=== PATIENT | female | born 1945 | race Caucasian/White ===

== ENCOUNTER 2020-06-16 19:37 | Inpatient (IN) | payer OTHER ==
[2020-06-16 20:37] LABS: EOS % 1.1 % (0-4.5); HEMOGLOBIN 10.8 GM/dl (10.7-15.3)
[2020-06-16 20:46] LABS: BASO % 0.5 % (0-2.0); HEMATOCRIT 31.5 % (32.4-45.2); LYMPH % 9.5 % (8-40); MCH 32.3 pg (25.7-33.7); MCHC 34.1 g/dl (32.0-36.0); MEAN CELL VOLUME 94.6 fl (80-96); MEAN PLT VOLUME 10.4 fl (7.5-11.1); MONO % 6.9 % (3.8-10.2); PLATELET COUNT 212 K/MM3 (134-434); RBC 3.33 M/mm3 (3.60-5.2); WHITE BLOOD COUNT 8.4 K/mm3 (4.0-10.8)
[2020-06-16 20:47] LABS: ALBUMIN 3.5 g/dl (3.4-5.0); BILIRUBIN,TOTAL 0.6 mg/dl (0.2-1); CALCIUM 9.7 mg/dl (8.5-10); CREATININE 0.6 mg/dl (0.55-1.3); POTASSIUM 4.2 mmol/L (3.5-5.1); TOT PROT 6.6 g/dl (6.4-8.2)
[2020-06-16] MEDS ORDERED: ALBUTEROL SO4 2.5/IPRATROPIUM 0.5 INH SOL 3 ML VIAL.NEB. NEB ONE ×2 (21:07→21:10)
[2020-06-16] MEDS ORDERED: DEXAMETHASONE SOD PHOSPHATE 10 MG/1 ML VIAL IVPUSH ONE (21:07)
[2020-06-16] MEDS ORDERED: DEXAMETHASONE SOD PHOSPHATE 10 MG/1 ML VIAL ONE (21:10)
[2020-06-16] MEDS ORDERED: ACETAMINOPHEN INJECTION 100 ML IVPB ONE (21:17)
[2020-06-16] MEDS ORDERED: ACETAMINOPHEN 1000 MG/100 ML VIAL (NON FORMULARY) IVPB ONE (21:17)
[2020-06-16 21:59] LABS: LIPASE 178 U/L (73-393)
[2020-06-16 22:03] LABS: VENOUS BASE EXCESS 1.6 mmol/L (-2-2); VENOUS O2 SATURATION 97.5 % (70-80); VENOUS PCO2 49.1 mmHg (38-52); VENOUS PH 7.368 (7.310-7.410)
[2020-06-16 22:07] LABS: N-TERMINAL BNP 230.8 pg/ml (5-125)
[2020-06-16] MEDS ORDERED: VANCOMYCIN 1 GM in D5W (PRE-DOCKED) 1,000 MG/250 ML IVPB ONE (22:13)
[2020-06-16] MEDS ORDERED: VANCOMYCIN 1,000 MG VIAL (RESTRICTED TO ID ONLY) ONE (22:16)
[2020-06-16] MEDS ORDERED: ALBUTEROL SO4 2.5/IPRATROPIUM 0.5 INH SOL 3 ML VIAL.NEB. NEB PRN (23:08)
[2020-06-17 08:18] LABS: ALBUMIN 3.2 g/dl (3.4-5.0); BILIRUBIN,TOTAL 0.6 mg/dl (0.2-1); CALCIUM 9.9 mg/dl (8.5-10); CREATININE 0.6 mg/dl (0.55-1.3); POTASSIUM 4.4 mmol/L (3.5-5.1); TOT PROT 6.1 g/dl (6.4-8.2)
[2020-06-17] MEDS ORDERED: methylPREDNISolone NA SUCC 40 MG/1 ML VIAL IVPUSH SCH (10:00)
[2020-06-17] MEDS: LOSARTAN POTASSIUM 50 MG TABLET PO SCH (10:18)
[2020-06-17] MEDS: VANCOMYCIN 1 GRAM (PRE-DOCKED) 1 GM/250 ML BAG IVPB SCH ×2 (10:19→21:44)
[2020-06-17] MEDS: ASPIRIN COATED 81 MG TABLET.EC PO SCH (10:19)
[2020-06-17] MEDS: FAMOTIDINE 20 MG TABLET PO SCH (10:19)
[2020-06-17 10:21] LABS: EPITHELIAL CELLS FEW /hpf
[2020-06-17] MEDS ORDERED: BUDESONIDE/FORMETEROL FUMARATE 160/4.5 mcg INHALER IH ONE (10:52)
[2020-06-17] MEDS: ALBUTEROL SO4 2.5/IPRATROPIUM 0.5 INH SOL 3 ML VIAL.NEB. NEB SCH ×3 (11:09→20:47)
[2020-06-17] MEDS: BUDESONIDE/FORMETEROL FUMARATE 160/4.5 mcg INHALER IH SCH (12:05)
[2020-06-17] MEDS ORDERED: PT OWN MED DRAWER 7, Y5N ONE (12:34)
[2020-06-17] MEDS: FUROSEMIDE 20 MG TABLET (FP) PO SCH (16:05)
[2020-06-17] MEDS: methylPREDNISolone NA SUCC 40 MG/1 ML VIAL IVPUSH SCH (18:21)
[2020-06-17] MEDS: ESCITALOPRAM OXALATE 10 MG TABLET PO SCH (20:47)
[2020-06-17] MEDS: ATORVASTATIN CA 10 MG TABLET (FP) PO SCH (21:44)
[2020-06-17] MEDS: NYSTATIN 100,000 UNIT/GM TOPICAL CREAM 15 GM TUBE TP SCH (21:44)
[2020-06-18] MEDS: methylPREDNISolone NA SUCC 40 MG/1 ML VIAL IVPUSH SCH ×2 (06:14→10:23)
[2020-06-18] MEDS: LEVOTHYROXINE NA 88 MCG TABLET (FP) PO SCH (06:14)
[2020-06-18] MEDS: ALBUTEROL SO4 2.5/IPRATROPIUM 0.5 INH SOL 3 ML VIAL.NEB. NEB SCH ×3 (08:00→20:31)
[2020-06-18 08:19] LABS: CALCIUM 10.1 mg/dl (8.5-10); CREATININE 0.7 mg/dl (0.55-1.3); POTASSIUM 4.2 mmol/L (3.5-5.1)
[2020-06-18] MEDS: VANCOMYCIN 1 GRAM (PRE-DOCKED) 1 GM/250 ML BAG IVPB SCH ×2 (09:00→21:31)
[2020-06-18] MEDS ORDERED: CEFTRIAXONE 2 GM-D5W BAG 2 GM/50 ML BAG IVPB ONE (09:28)
[2020-06-18] MEDS: ASPIRIN COATED 81 MG TABLET.EC PO SCH (09:57)
[2020-06-18] MEDS: FUROSEMIDE 20 MG TABLET (FP) PO SCH (09:57)
[2020-06-18] MEDS: LOSARTAN POTASSIUM 50 MG TABLET PO SCH (09:57)
[2020-06-18] MEDS: FAMOTIDINE 20 MG TABLET PO SCH (09:57)
[2020-06-18] MEDS: CEFTRIAXONE 1 GM in DEXTROSE 5%-WATER - 50 ML IVPB SCH (09:57)
[2020-06-18] MEDS: BUDESONIDE/FORMETEROL FUMARATE 160/4.5 mcg INHALER IH SCH (09:58)
[2020-06-18] MEDS: ENOXAPARIN NA (PORCINE) 40 MG/0.4 ML DISP.SYRIN SQ SCH ×2 (10:01→21:31)
[2020-06-18] MEDS: NYSTATIN 100,000 UNIT/GM TOPICAL CREAM 15 GM TUBE TP SCH ×2 (10:02→21:29)
[2020-06-18] MEDS ORDERED: SODIUM CHLORIDE NASAL SPRAY 44 ML BOTTLE NS PRN (12:22)
[2020-06-18] MEDS ORDERED: cefTRIAXone SODIUM 1 GM VIAL ONE (13:19)
[2020-06-18] MEDS ORDERED: DEXTROSE 5%-WATER - 50 ML IVPB ONE (13:19)
[2020-06-18] MEDS ORDERED: POLYETHYLENE GLYCOL 3350 119 GM BTL PO ONE (13:29)
[2020-06-18 19:46] LABS: MAGNESIUM 2.1 mg/dL (1.8-2.4)
[2020-06-18] MEDS: ESCITALOPRAM OXALATE 10 MG TABLET PO SCH (20:31)
[2020-06-18] MEDS: ATORVASTATIN CA 10 MG TABLET (FP) PO SCH (21:29)
[2020-06-19] MEDS ORDERED: IBUPROFEN 200 MG TABLET PO ONE (00:05)
[2020-06-19] MEDS: methylPREDNISolone NA SUCC 40 MG/1 ML VIAL IVPUSH SCH ×3 (02:00→09:02)
[2020-06-19] MEDS: LEVOTHYROXINE NA 88 MCG TABLET (FP) PO SCH ×2 (06:38→07:33)
[2020-06-19] MEDS ORDERED: DEXTROSE 5%-WATER - 50 ML IVPB ONE (08:14)
[2020-06-19] MEDS ORDERED: cefTRIAXone SODIUM 1 GM VIAL ONE (08:14)
[2020-06-19] MEDS ORDERED: PT OWN MED DRAWER 7, Y5N ONE (08:16)
[2020-06-19] MEDS: ALBUTEROL SO4 2.5/IPRATROPIUM 0.5 INH SOL 3 ML VIAL.NEB. NEB SCH ×3 (08:25→20:40)
[2020-06-19] MEDS: BUDESONIDE/FORMETEROL FUMARATE 160/4.5 mcg INHALER IH SCH (09:00)
[2020-06-19] MEDS: FUROSEMIDE 20 MG TABLET (FP) PO SCH (09:02)
[2020-06-19] MEDS: ASPIRIN COATED 81 MG TABLET.EC PO SCH (09:02)
[2020-06-19] MEDS: ENOXAPARIN NA (PORCINE) 40 MG/0.4 ML DISP.SYRIN SQ SCH ×2 (09:02→21:14)
[2020-06-19] MEDS: FAMOTIDINE 20 MG TABLET PO SCH (09:02)
[2020-06-19] MEDS: POLYETHYLENE GLYCOL 3350 119 GM BTL PO SCH (09:02)
[2020-06-19] MEDS: LOSARTAN POTASSIUM 50 MG TABLET PO SCH (09:02)
[2020-06-19] MEDS: CEFTRIAXONE 1 GM in DEXTROSE 5%-WATER - 50 ML IVPB SCH (09:03)
[2020-06-19] MEDS: NYSTATIN 100,000 UNIT/GM TOPICAL CREAM 15 GM TUBE TP SCH ×2 (09:03→21:15)
[2020-06-19] MEDS: VANCOMYCIN 1 GRAM (PRE-DOCKED) 1 GM/250 ML BAG IVPB SCH (09:04)
[2020-06-19 09:21] LABS: BASO % 0.9 % (0-2.0); EOS % 0.1 % (0-4.5); HEMATOCRIT 28.9 % (32.4-45.2); HEMOGLOBIN 9.6 GM/dl (10.7-15.3); LYMPH % 12.2 % (8-40); MCH 31.8 pg (25.7-33.7); MEAN CELL VOLUME 96.2 fl (80-96); MEAN PLT VOLUME 10.5 fl (7.5-11.1); MONO % 6.1 % (3.8-10.2); NEUT % 80.7 % (42.8-82.8); PLATELET COUNT 210 K/MM3 (134-434); RBC 3.01 M/mm3 (3.60-5.2); RDW 13.8 % (11.6-15.6); WHITE BLOOD COUNT 8.2 K/mm3 (4.0-10.8)
[2020-06-19 09:40] LABS: ALBUMIN 3.4 g/dl (3.4-5.0); BILIRUBIN,TOTAL 0.6 mg/dl (0.2-1); CREATININE 0.7 mg/dl (0.55-1.3); MAGNESIUM 1.9 mg/dL (1.8-2.4)
[2020-06-19] MEDS ORDERED: methylPREDNISolone NA SUCC 40 MG/1 ML VIAL IVPUSH SCH (11:00)
[2020-06-19] MEDS: ESCITALOPRAM OXALATE 10 MG TABLET PO SCH (21:14)
[2020-06-19] MEDS: ATORVASTATIN CA 10 MG TABLET (FP) PO SCH (21:14)
[2020-06-20] MEDS: LEVOTHYROXINE NA 88 MCG TABLET (FP) PO SCH (06:08)
[2020-06-20 08:35] LABS: BASO % 0.4 % (0-2.0); EOS % 1.5 % (0-4.5); HEMATOCRIT 30.1 % (32.4-45.2); HEMOGLOBIN 10.1 GM/dl (10.7-15.3); LYMPH % 20.3 % (8-40); MCH 31.5 pg (25.7-33.7); MCHC 33.4 g/dl (32.0-36.0); MEAN CELL VOLUME 94.1 fl (80-96); MEAN PLT VOLUME 10.2 fl (7.5-11.1); MONO % 10.4 % (3.8-10.2); NEUT % 67.4 % (42.8-82.8); PLATELET COUNT 234 K/MM3 (134-434); RDW 13.6 % (11.6-15.6); WHITE BLOOD COUNT 9.4 K/mm3 (4.0-10.8)
[2020-06-20 08:43] LABS: ALBUMIN 3.3 g/dl (3.4-5.0); BILIRUBIN,TOTAL 0.4 mg/dl (0.2-1); CALCIUM 10.1 mg/dl (8.5-10); CREATININE 0.6 mg/dl (0.55-1.3); MAGNESIUM 1.9 mg/dL (1.8-2.4); POTASSIUM 4.2 mmol/L (3.5-5.1); TOT PROT 6.3 g/dl (6.4-8.2)
[2020-06-20] MEDS ORDERED: DEXTROSE 5%-WATER - 50 ML IVPB ONE (09:21)
[2020-06-20] MEDS ORDERED: cefTRIAXone SODIUM 1 GM VIAL ONE (09:21)
[2020-06-20] MEDS: LOSARTAN POTASSIUM 50 MG TABLET PO SCH (09:52)
[2020-06-20] MEDS: ASPIRIN COATED 81 MG TABLET.EC PO SCH (09:52)
[2020-06-20] MEDS: FAMOTIDINE 20 MG TABLET PO SCH (09:53)
[2020-06-20] MEDS: ENOXAPARIN NA (PORCINE) 40 MG/0.4 ML DISP.SYRIN SQ SCH ×2 (09:53→21:23)
[2020-06-20] MEDS: POLYETHYLENE GLYCOL 3350 119 GM BTL PO SCH (09:54)
[2020-06-20] MEDS: NYSTATIN 100,000 UNIT/GM TOPICAL CREAM 15 GM TUBE TP SCH (09:54)
[2020-06-20] MEDS: ALBUTEROL SO4 2.5/IPRATROPIUM 0.5 INH SOL 3 ML VIAL.NEB. NEB SCH ×3 (09:55→19:36)
[2020-06-20] MEDS: CEFTRIAXONE 1 GM in DEXTROSE 5%-WATER - 50 ML IVPB SCH (09:55)
[2020-06-20] MEDS ORDERED: methylPREDNISolone NA SUCC 40 MG/1 ML VIAL IVPUSH SCH (10:00)
[2020-06-20] MEDS: BUDESONIDE/FORMETEROL FUMARATE 160/4.5 mcg INHALER IH SCH (10:04)
[2020-06-20] MEDS: ESCITALOPRAM OXALATE 10 MG TABLET PO SCH (19:34)
[2020-06-21] MEDS: LEVOTHYROXINE NA 88 MCG TABLET (FP) PO SCH (06:09)
[2020-06-21 08:04] LABS: BASO % 0.4 % (0-2.0); EOS % 2.3 % (0-4.5); HEMATOCRIT 28.7 % (32.4-45.2); HEMOGLOBIN 9.6 GM/dl (10.7-15.3); MCH 31.9 pg (25.7-33.7); MCHC 33.5 g/dl (32.0-36.0); MEAN PLT VOLUME 10.5 fl (7.5-11.1); MONO % 13.1 % (3.8-10.2); NEUT % 64.2 % (42.8-82.8); PLATELET COUNT 199 K/MM3 (134-434); RBC 3.02 M/mm3 (3.60-5.2); RDW 13.6 % (11.6-15.6); WHITE BLOOD COUNT 8.7 K/mm3 (4.0-10.8)
[2020-06-21 08:19] LABS: ALBUMIN 3.1 g/dl (3.4-5.0); BILIRUBIN,TOTAL 0.7 mg/dl (0.2-1); CALCIUM 9.6 mg/dl (8.5-10); CREATININE 0.5 mg/dl (0.55-1.3); MAGNESIUM 1.9 mg/dL (1.8-2.4); POTASSIUM 3.9 mmol/L (3.5-5.1); TOT PROT 5.7 g/dl (6.4-8.2)
[2020-06-21] MEDS: ALBUTEROL SO4 2.5/IPRATROPIUM 0.5 INH SOL 3 ML VIAL.NEB. NEB SCH ×2 (08:35→20:24)
[2020-06-21] MEDS ORDERED: DEXTROSE 5%-WATER - 50 ML IVPB ONE (09:37)
[2020-06-21] MEDS ORDERED: cefTRIAXone SODIUM 1 GM VIAL ONE (09:37)
[2020-06-21] MEDS ORDERED: FUROSEMIDE 20 MG TABLET (FP) PO SCH (10:00)
[2020-06-21] MEDS ORDERED: predniSONE 20 MG TABLET (UD) PO SCH (10:00)
[2020-06-21] MEDS: ASPIRIN COATED 81 MG TABLET.EC PO SCH (10:29)
[2020-06-21] MEDS: predniSONE 20 MG TABLET (UD) PO SCH (10:29)
[2020-06-21] MEDS: LOSARTAN POTASSIUM 50 MG TABLET PO SCH (10:29)
[2020-06-21] MEDS: POLYETHYLENE GLYCOL 3350 119 GM BTL PO SCH (10:34)
[2020-06-21] MEDS: FAMOTIDINE 20 MG TABLET PO SCH (10:34)
[2020-06-21] MEDS: FUROSEMIDE 20 MG TABLET (FP) PO SCH (10:34)
[2020-06-21] MEDS: ENOXAPARIN NA (PORCINE) 40 MG/0.4 ML DISP.SYRIN SQ SCH ×2 (10:34→21:25)
[2020-06-21] MEDS: BUDESONIDE/FORMETEROL FUMARATE 160/4.5 mcg INHALER IH SCH (10:35)
[2020-06-21] MEDS: CEFTRIAXONE 1 GM in DEXTROSE 5%-WATER - 50 ML IVPB SCH (10:35)
[2020-06-21 11:03] LABS: IRON SERUM 43 ug/dL (50-175)
[2020-06-21 11:05] LABS: TOTAL IRON BINDING CAPACITY 266 ug/dL (250-450)
[2020-06-21] MEDS ORDERED: LORazepam 1 MG TABLET PO ONE (12:00)
[2020-06-21] MEDS: ESCITALOPRAM OXALATE 10 MG TABLET PO SCH (20:24)
[2020-06-22] MEDS: LEVOTHYROXINE NA 88 MCG TABLET (FP) PO SCH (06:00)
[2020-06-22] MEDS: ALBUTEROL SO4 2.5/IPRATROPIUM 0.5 INH SOL 3 ML VIAL.NEB. NEB SCH ×3 (06:09→09:59)
[2020-06-22] MEDS ORDERED: DEXTROSE 5%-WATER - 50 ML IVPB ONE (07:49)
[2020-06-22] MEDS ORDERED: cefTRIAXone SODIUM 1 GM VIAL ONE (07:49)
[2020-06-22 07:52] LABS: BASO % 0.4 % (0-2.0)
[2020-06-22 07:55] LABS: EOS % 2.8 % (0-4.5); HEMATOCRIT 29.8 % (32.4-45.2); HEMOGLOBIN 9.8 GM/dl (10.7-15.3); MCH 31.5 pg (25.7-33.7); MEAN CELL VOLUME 95.3 fl (80-96); MEAN PLT VOLUME 10.6 fl (7.5-11.1); NEUT % 66.8 % (42.8-82.8); PLATELET COUNT 213 K/MM3 (134-434); RBC 3.13 M/mm3 (3.60-5.2); RDW 13.4 % (11.6-15.6); WHITE BLOOD COUNT 8.3 K/mm3 (4.0-10.8)
[2020-06-22 08:06] LABS: ALBUMIN 3.2 g/dl (3.4-5.0); BILIRUBIN,TOTAL 0.5 mg/dl (0.2-1); CALCIUM 9.6 mg/dl (8.5-10); CREATININE 0.5 mg/dl (0.55-1.3); TOT PROT 5.9 g/dl (6.4-8.2)
[2020-06-22] MEDS: POLYETHYLENE GLYCOL 3350 119 GM BTL PO SCH (09:59)
[2020-06-22] MEDS: CEFTRIAXONE 1 GM in DEXTROSE 5%-WATER - 50 ML IVPB SCH (10:00)
[2020-06-22] MEDS: FAMOTIDINE 20 MG TABLET PO SCH (10:00)
[2020-06-22] MEDS: predniSONE 20 MG TABLET (UD) PO SCH (10:00)
[2020-06-22] MEDS: FUROSEMIDE 20 MG TABLET (FP) PO SCH (10:00)
[2020-06-22] MEDS: ENOXAPARIN NA (PORCINE) 40 MG/0.4 ML DISP.SYRIN SQ SCH ×2 (10:00→21:14)
[2020-06-22] MEDS: ASPIRIN COATED 81 MG TABLET.EC PO SCH (10:00)
[2020-06-22] MEDS: LOSARTAN POTASSIUM 50 MG TABLET PO SCH (10:01)
[2020-06-22] MEDS: FERROUS SO4 325 MG TABLET (FP) PO SCH ×2 (10:02→21:14)
[2020-06-22] MEDS: BUDESONIDE/FORMETEROL FUMARATE 160/4.5 mcg INHALER IH SCH (10:02)
[2020-06-22] MEDS: DOCUSATE SODIUM 100 MG CAPSULE (FP) PO SCH ×2 (14:52→21:14)
[2020-06-22] MEDS: ESCITALOPRAM OXALATE 10 MG TABLET PO SCH (20:10)
[2020-06-22] MEDS: ALBUTEROL SO4 0.083% IH SOL 2.5 MG/3 ML VIAL.NEB. NEB PRN (21:14)
[2020-06-23] MEDS: DOCUSATE SODIUM 100 MG CAPSULE (FP) PO SCH ×3 (06:28→21:57)
[2020-06-23] MEDS: LEVOTHYROXINE NA 88 MCG TABLET (FP) PO SCH (06:29)
[2020-06-23] MEDS: ALBUTEROL SO4 2.5/IPRATROPIUM 0.5 INH SOL 3 ML VIAL.NEB. NEB SCH ×4 (06:29→20:43)
[2020-06-23] MEDS: ENOXAPARIN NA (PORCINE) 40 MG/0.4 ML DISP.SYRIN SQ SCH ×2 (10:53→21:57)
[2020-06-23] MEDS: FERROUS SO4 325 MG TABLET (FP) PO SCH ×2 (10:53→21:57)
[2020-06-23] MEDS: LOSARTAN POTASSIUM 50 MG TABLET PO SCH (10:54)
[2020-06-23] MEDS: FUROSEMIDE 20 MG TABLET (FP) PO SCH (10:54)
[2020-06-23] MEDS: predniSONE 20 MG TABLET (UD) PO SCH (10:54)
[2020-06-23] MEDS: FAMOTIDINE 20 MG TABLET PO SCH (10:54)
[2020-06-23] MEDS: ASPIRIN COATED 81 MG TABLET.EC PO SCH (10:54)
[2020-06-23] MEDS: BUDESONIDE/FORMETEROL FUMARATE 160/4.5 mcg INHALER IH SCH (10:59)
[2020-06-23] MEDS: POLYETHYLENE GLYCOL 3350 119 GM BTL PO SCH (10:59)
[2020-06-23] MEDS ORDERED: predniSONE 20 MG TABLET (UD) PO SCH (15:22)
[2020-06-23] MEDS: ESCITALOPRAM OXALATE 10 MG TABLET PO SCH (20:43)
[2020-06-24] MEDS: ALBUTEROL SO4 0.083% IH SOL 2.5 MG/3 ML VIAL.NEB. NEB PRN (02:36)
[2020-06-24] MEDS: LEVOTHYROXINE NA 88 MCG TABLET (FP) PO SCH (06:23)
[2020-06-24] MEDS: DOCUSATE SODIUM 100 MG CAPSULE (FP) PO SCH ×3 (06:23→21:16)
[2020-06-24] MEDS: FAMOTIDINE 20 MG TABLET PO SCH (09:56)
[2020-06-24] MEDS: ASPIRIN COATED 81 MG TABLET.EC PO SCH (09:56)
[2020-06-24] MEDS: FUROSEMIDE 20 MG TABLET (FP) PO SCH (09:56)
[2020-06-24] MEDS: ENOXAPARIN NA (PORCINE) 40 MG/0.4 ML DISP.SYRIN SQ SCH ×2 (09:56→21:17)
[2020-06-24] MEDS: BUDESONIDE/FORMETEROL FUMARATE 160/4.5 mcg INHALER IH SCH ×2 (09:56→23:10)
[2020-06-24] MEDS: FERROUS SO4 325 MG TABLET (FP) PO SCH ×2 (09:56→21:16)
[2020-06-24] MEDS: LOSARTAN POTASSIUM 50 MG TABLET PO SCH (09:57)
[2020-06-24] MEDS: POLYETHYLENE GLYCOL 3350 119 GM BTL PO SCH (09:59)
[2020-06-24] MEDS ORDERED: DEXAMETHASONE SOD PHOSPHATE 10 MG/1 ML VIAL IVPUSH SCH (10:57)
[2020-06-24 11:01] LABS: BASO % 0.3 % (0-2.0); EOS % 2.7 % (0-4.5); HEMATOCRIT 27.9 % (32.4-45.2); HEMOGLOBIN 9.5 GM/dl (10.7-15.3); MCH 32.4 pg (25.7-33.7); MCHC 34.2 g/dl (32.0-36.0); MEAN CELL VOLUME 94.8 fl (80-96); MEAN PLT VOLUME 11.1 fl (7.5-11.1); MONO % 8.3 % (3.8-10.2); NEUT % 73.7 % (42.8-82.8); PLATELET COUNT 185 K/MM3 (134-434); RBC 2.94 M/mm3 (3.60-5.2); RDW 13.5 % (11.6-15.6); WHITE BLOOD COUNT 8.2 K/mm3 (4.0-10.8)
[2020-06-24] MEDS ORDERED: DEXAMETHASONE SOD PHOSPHATE 10 MG/1 ML VIAL IVPUSH ONE (11:27)
[2020-06-24] MEDS ORDERED: MEROPENEM 1 GM VIAL (RESTRICTED TO ID) IVPB ONE ×3 (11:36→23:01)
[2020-06-24] MEDS ORDERED: DEXTROSE 5%-WATER 100 ML IVPB ONE ×3 (11:36→23:01)
[2020-06-24] MEDS: MEROPENEM 1 GM in DEXTROSE 5%-WATER 100 ML IVPB SCH ×2 (11:39→18:30)
[2020-06-24 12:23] LABS: ALBUMIN 2.6 g/dl (3.4-5.0); BLOOD UREA NITROGEN 22.6 mg/dL (7-18)
[2020-06-24 12:27] LABS: BILIRUBIN,TOTAL 0.4 mg/dL (0.2-1)
[2020-06-24 12:28] LABS: CREATININE 0.5 mg/dL (0.55-1.3); TOT PROT 5.5 g/dl (6.4-8.2)
[2020-06-24 12:38] LABS: CALCIUM 9.5 mg/dL (8.5-10.1)
[2020-06-24] MEDS ORDERED: PT OWN MED DRAWER 7, Y5N ONE ×4 (13:56→23:00)
[2020-06-24] MEDS: AZITHROMYCIN IVPB 500 MG/250 ML BAG IVPB SCH (14:13)
[2020-06-24] MEDS ORDERED: REMDESIVIR 200 MG in SODIUM CHLORIDE 210 ML IVPB ONE (15:00)
[2020-06-24] MEDS: ALBUTEROL SO4 2.5/IPRATROPIUM 0.5 INH SOL 3 ML VIAL.NEB. NEB SCH (20:24)
[2020-06-24] MEDS: SODIUM CHLORIDE NASAL SPRAY 44 ML BOTTLE NS PRN (21:16)
[2020-06-24] MEDS: ESCITALOPRAM OXALATE 10 MG TABLET PO SCH (21:16)
[2020-06-24] MEDS ORDERED: MELATONIN 5 MG TABLETS PO PRN (22:57)
[2020-06-24] MEDS: ALBUTEROL SO4 HFA INHALER IH PRN (23:45)
[2020-06-25] MEDS: MEROPENEM 1 GM in DEXTROSE 5%-WATER 100 ML IVPB SCH ×3 (01:24→18:48)
[2020-06-25] MEDS: ALBUTEROL SO4 HFA INHALER IH PRN (03:46)
[2020-06-25 03:53] LABS: EPI CELLS 10 /uL (0-25.1); HYALINE CASTS 0 /uL (0-3.1); PH,URINE 6.5 (5.0-8.0); URINE APPEARANCE CLEAR; URINE BACTERIA 377 /uL (0-1359); URINE BILIRUBIN NEGATIVE (NEGATIVE); URINE COLOR YELLOW; URINE GLUCOSE (UA) NEGATIVE (NEGATIVE); URINE KETONE NEGATIVE (NEGATIVE); URINE LEUK ESTERASE NEGATIVE (NEGATIVE); URINE NITRITE NEGATIVE (NEGATIVE); URINE PROTEIN NEGATIVE (NEGATIVE); URINE RBC 17 /uL (0-23.9); URINE UROBILINOGEN 0.2 mg/dL (0.2-1.0); URINE WBC 4 /uL (0-25.8)
[2020-06-25] MEDS: LEVOTHYROXINE NA 88 MCG TABLET (FP) PO SCH (06:11)
[2020-06-25] MEDS: DOCUSATE SODIUM 100 MG CAPSULE (FP) PO SCH ×3 (06:11→22:11)
[2020-06-25] MEDS: SODIUM CHLORIDE NASAL SPRAY 44 ML BOTTLE NS PRN (06:12)
[2020-06-25 07:16] LABS: POTASSIUM 3.9 mmol/L (3.5-5.1)
[2020-06-25 07:21] LABS: CALCIUM 9.8 mg/dL (8.5-10.1)
[2020-06-25 07:22] LABS: ALBUMIN 2.8 g/dl (3.4-5.0); BLOOD UREA NITROGEN 23.7 mg/dL (7-18); MAGNESIUM 2.2 mg/dL (1.8-2.4)
[2020-06-25 07:25] LABS: CREATININE 0.6 mg/dL (0.55-1.3)
[2020-06-25 07:26] LABS: BILIRUBIN,TOTAL 0.4 mg/dL (0.2-1)
[2020-06-25 07:27] LABS: TOT PROT 5.6 g/dl (6.4-8.2)
[2020-06-25] MEDS ORDERED: MEROPENEM 1 GM VIAL (RESTRICTED TO ID) IVPB ONE ×2 (09:21→18:09)
[2020-06-25] MEDS ORDERED: DEXTROSE 5%-WATER 100 ML IVPB ONE ×2 (09:22→18:10)
[2020-06-25] MEDS ORDERED: PT OWN MED DRAWER 7, Y5N ONE (09:23)
[2020-06-25] MEDS ORDERED: DEXAMETHASONE SOD PHOSPHATE 10 MG/1 ML VIAL IVPUSH SCH (10:00)
[2020-06-25] MEDS ORDERED: BUDESONIDE/FORMETEROL FUMARATE 160/4.5 mcg INHALER IH SCH (10:00)
[2020-06-25] MEDS: DEXAMETHASONE SOD PHOSPHATE 10 MG/1 ML VIAL IVPUSH SCH (10:15)
[2020-06-25] MEDS: ASPIRIN COATED 81 MG TABLET.EC PO SCH (10:15)
[2020-06-25] MEDS: FUROSEMIDE 20 MG TABLET (FP) PO SCH (10:15)
[2020-06-25] MEDS: ENOXAPARIN NA (PORCINE) 40 MG/0.4 ML DISP.SYRIN SQ SCH ×2 (10:15→22:11)
[2020-06-25] MEDS: BUDESONIDE/FORMETEROL FUMARATE 160/4.5 mcg INHALER IH SCH ×2 (10:15→22:11)
[2020-06-25] MEDS: FAMOTIDINE 20 MG TABLET PO SCH (10:15)
[2020-06-25] MEDS: POLYETHYLENE GLYCOL 3350 119 GM BTL PO SCH (10:15)
[2020-06-25] MEDS: FERROUS SO4 325 MG TABLET (FP) PO SCH ×2 (10:15→22:11)
[2020-06-25] MEDS: AZITHROMYCIN IVPB 500 MG/250 ML BAG IVPB SCH (10:16)
[2020-06-25] MEDS: REMDESIVIR 100 MG in SODIUM CHLORIDE 230 ML IVPB SCH (15:42)
[2020-06-25] MEDS: ESCITALOPRAM OXALATE 10 MG TABLET PO SCH (21:00)
[2020-06-26] MEDS ORDERED: DEXTROSE 5%-WATER 100 ML IVPB ONE ×3 (01:04→16:33)
[2020-06-26] MEDS ORDERED: MEROPENEM 1 GM VIAL (RESTRICTED TO ID) IVPB ONE ×3 (01:04→16:33)
[2020-06-26] MEDS: MEROPENEM 1 GM in DEXTROSE 5%-WATER 100 ML IVPB SCH ×3 (01:05→17:15)
[2020-06-26] MEDS: ALBUTEROL SO4 HFA INHALER IH PRN ×3 (01:05→21:55)
[2020-06-26] MEDS: DOCUSATE SODIUM 100 MG CAPSULE (FP) PO SCH ×3 (06:50→21:41)
[2020-06-26] MEDS: LEVOTHYROXINE NA 88 MCG TABLET (FP) PO SCH (06:50)
[2020-06-26 07:30] LABS: POTASSIUM 3.8 mmol/L (3.5-5.1)
[2020-06-26 07:37] LABS: ALBUMIN 2.6 g/dl (3.4-5.0); CALCIUM 9.5 mg/dL (8.5-10.1)
[2020-06-26 07:38] LABS: BLOOD UREA NITROGEN 21.6 mg/dL (7-18)
[2020-06-26 07:39] LABS: BILIRUBIN,TOTAL 0.4 mg/dL (0.2-1); TOT PROT 5.4 g/dl (6.4-8.2)
[2020-06-26 07:41] LABS: CREATININE 0.5 mg/dL (0.55-1.3)
[2020-06-26 08:22] VITALS: BMI 40.4
[2020-06-26] MEDS: BUDESONIDE/FORMETEROL FUMARATE 160/4.5 mcg INHALER IH SCH ×2 (09:45→21:55)
[2020-06-26] MEDS: FERROUS SO4 325 MG TABLET (FP) PO SCH ×2 (09:54→21:41)
[2020-06-26] MEDS: DEXAMETHASONE SOD PHOSPHATE 10 MG/1 ML VIAL IVPUSH SCH (09:54)
[2020-06-26] MEDS: FUROSEMIDE 20 MG TABLET (FP) PO SCH (09:54)
[2020-06-26] MEDS: ASPIRIN COATED 81 MG TABLET.EC PO SCH (09:54)
[2020-06-26] MEDS: AZITHROMYCIN IVPB 500 MG/250 ML BAG IVPB SCH (09:55)
[2020-06-26] MEDS: FAMOTIDINE 20 MG TABLET PO SCH (09:57)
[2020-06-26] MEDS: ENOXAPARIN NA (PORCINE) 40 MG/0.4 ML DISP.SYRIN SQ SCH ×2 (09:59→21:40)
[2020-06-26] MEDS: POLYETHYLENE GLYCOL 3350 119 GM BTL PO SCH (10:00)
[2020-06-26] MEDS: REMDESIVIR 100 MG in SODIUM CHLORIDE 230 ML IVPB SCH (14:16)
[2020-06-26] MEDS: ACETAMINOPHEN 325 MG TABLET (FP) PO PRN (18:30)
[2020-06-26] MEDS: SODIUM CHLORIDE NASAL SPRAY 44 ML BOTTLE NS PRN (19:50)
[2020-06-26] MEDS: ESCITALOPRAM OXALATE 10 MG TABLET PO SCH (21:41)
[2020-06-26] MEDS: MELATONIN 5 MG TABLETS PO SCH (21:55)
[2020-06-27] MEDS ORDERED: MEROPENEM 1 GM VIAL (RESTRICTED TO ID) IVPB ONE ×3 (00:37→17:33)
[2020-06-27] MEDS ORDERED: DEXTROSE 5%-WATER 100 ML IVPB ONE ×3 (00:38→17:34)
[2020-06-27] MEDS: MEROPENEM 1 GM in DEXTROSE 5%-WATER 100 ML IVPB SCH ×3 (01:04→17:39)
[2020-06-27] MEDS: ALBUTEROL SO4 HFA INHALER IH PRN ×3 (02:08→23:45)
[2020-06-27] MEDS: SODIUM CHLORIDE NASAL SPRAY 44 ML BOTTLE NS PRN ×2 (02:08→22:28)
[2020-06-27] MEDS: DOCUSATE SODIUM 100 MG CAPSULE (FP) PO SCH ×3 (06:29→22:15)
[2020-06-27] MEDS: LEVOTHYROXINE NA 88 MCG TABLET (FP) PO SCH (06:29)
[2020-06-27 07:45] LABS: BASO % 0.6 % (0-2.0); EOS % 2.9 % (0-4.5); HEMATOCRIT 27.1 % (32.4-45.2); HEMOGLOBIN 9.6 GM/dL (10.7-15.3); MCH 32.6 pg (25.7-33.7); MCHC 35.2 g/dl (32.0-36.0); MEAN CELL VOLUME 92.6 fl (80-96); MEAN PLT VOLUME 10.7 fl (7.5-11.1); MONO % 12.2 % (3.8-10.2); NEUT % 59.3 % (42.8-82.8); PLATELET COUNT 207 K/MM3 (134-434); RBC 2.93 M/mm3 (3.60-5.2); RDW 14.1 % (11.6-15.6); WHITE BLOOD COUNT 7.9 K/mm3 (4.0-10.0)
[2020-06-27 07:51] LABS: POTASSIUM 4.1 mmol/L (3.5-5.1)
[2020-06-27 07:54] LABS: CALCIUM 9.5 mg/dL (8.5-10.1)
[2020-06-27 07:55] LABS: ALBUMIN 2.6 g/dl (3.4-5.0); BLOOD UREA NITROGEN 23.3 mg/dL (7-18)
[2020-06-27 07:58] LABS: CREATININE 0.6 mg/dL (0.55-1.3)
[2020-06-27 08:00] LABS: BILIRUBIN,TOTAL 0.4 mg/dL (0.2-1); TOT PROT 5.5 g/dl (6.4-8.2)
[2020-06-27] MEDS: FERROUS SO4 325 MG TABLET (FP) PO SCH ×2 (10:46→22:15)
[2020-06-27] MEDS: FUROSEMIDE 20 MG TABLET (FP) PO SCH (10:46)
[2020-06-27] MEDS: FAMOTIDINE 20 MG TABLET PO SCH (10:46)
[2020-06-27] MEDS: ASPIRIN COATED 81 MG TABLET.EC PO SCH (10:46)
[2020-06-27] MEDS: POLYETHYLENE GLYCOL 3350 119 GM BTL PO SCH (10:46)
[2020-06-27] MEDS: ENOXAPARIN NA (PORCINE) 40 MG/0.4 ML DISP.SYRIN SQ SCH ×2 (10:46→22:15)
[2020-06-27] MEDS: DEXAMETHASONE SOD PHOSPHATE 10 MG/1 ML VIAL IVPUSH SCH (10:46)
[2020-06-27] MEDS: BUDESONIDE/FORMETEROL FUMARATE 160/4.5 mcg INHALER IH SCH ×2 (11:08→22:16)
[2020-06-27] MEDS: AZITHROMYCIN IVPB 500 MG/250 ML BAG IVPB SCH (11:08)
[2020-06-27] MEDS: REMDESIVIR 100 MG in SODIUM CHLORIDE 230 ML IVPB SCH (15:52)
[2020-06-27] MEDS: MELATONIN 5 MG TABLETS PO SCH (22:15)
[2020-06-27] MEDS: ESCITALOPRAM OXALATE 10 MG TABLET PO SCH (22:15)
[2020-06-28] MEDS ORDERED: MEROPENEM 1 GM VIAL (RESTRICTED TO ID) IVPB ONE ×3 (01:20→17:48)
[2020-06-28] MEDS ORDERED: DEXTROSE 5%-WATER 100 ML IVPB ONE ×3 (01:20→17:48)
[2020-06-28] MEDS: MEROPENEM 1 GM in DEXTROSE 5%-WATER 100 ML IVPB SCH ×3 (01:28→17:55)
[2020-06-28] MEDS: ALBUTEROL SO4 HFA INHALER IH PRN ×3 (03:40→17:55)
[2020-06-28] MEDS: DOCUSATE SODIUM 100 MG CAPSULE (FP) PO SCH ×3 (06:25→22:09)
[2020-06-28] MEDS: LEVOTHYROXINE NA 88 MCG TABLET (FP) PO SCH (06:25)
[2020-06-28] MEDS: SODIUM CHLORIDE NASAL SPRAY 44 ML BOTTLE NS PRN (07:49)
[2020-06-28] MEDS ORDERED: PT OWN MED DRAWER 7, Y5N ONE ×2 (09:45→13:16)
[2020-06-28] MEDS: ASPIRIN COATED 81 MG TABLET.EC PO SCH (09:58)
[2020-06-28] MEDS: FERROUS SO4 325 MG TABLET (FP) PO SCH ×2 (09:59→22:09)
[2020-06-28] MEDS: ENOXAPARIN NA (PORCINE) 40 MG/0.4 ML DISP.SYRIN SQ SCH ×2 (09:59→22:09)
[2020-06-28] MEDS: FUROSEMIDE 20 MG TABLET (FP) PO SCH (09:59)
[2020-06-28] MEDS ORDERED: DEXAMETHASONE SOD PHOSPHATE 10 MG/1 ML VIAL IVPUSH SCH (10:00)
[2020-06-28] MEDS: FAMOTIDINE 20 MG TABLET PO SCH (10:00)
[2020-06-28] MEDS: AZITHROMYCIN IVPB 500 MG/250 ML BAG IVPB SCH (10:26)
[2020-06-28] MEDS: BUDESONIDE/FORMETEROL FUMARATE 160/4.5 mcg INHALER IH SCH ×2 (10:26→22:18)
[2020-06-28] MEDS: POLYETHYLENE GLYCOL 3350 119 GM BTL PO SCH ×2 (10:26→13:00)
[2020-06-28] MEDS: REMDESIVIR 100 MG in SODIUM CHLORIDE 230 ML IVPB SCH (14:19)
[2020-06-28] MEDS: MELATONIN 5 MG TABLETS PO SCH (22:09)
[2020-06-28] MEDS: ESCITALOPRAM OXALATE 10 MG TABLET PO SCH (22:09)
[2020-06-29] MEDS ORDERED: MEROPENEM 1 GM VIAL (RESTRICTED TO ID) IVPB ONE ×2 (03:17→10:17)
[2020-06-29] MEDS ORDERED: DEXTROSE 5%-WATER 100 ML IVPB ONE ×2 (03:17→10:17)
[2020-06-29] MEDS: MEROPENEM 1 GM in DEXTROSE 5%-WATER 100 ML IVPB SCH ×2 (03:18→10:25)
[2020-06-29] MEDS: ACETAMINOPHEN 325 MG TABLET (FP) PO PRN (06:04)
[2020-06-29] MEDS: DOCUSATE SODIUM 100 MG CAPSULE (FP) PO SCH ×3 (06:04→21:58)
[2020-06-29] MEDS: SODIUM CHLORIDE NASAL SPRAY 44 ML BOTTLE NS PRN ×2 (06:17→10:28)
[2020-06-29] MEDS: ALBUTEROL SO4 HFA INHALER IH PRN ×3 (06:17→18:27)
[2020-06-29] MEDS: LEVOTHYROXINE NA 88 MCG TABLET (FP) PO SCH (06:20)
[2020-06-29] MEDS: FUROSEMIDE 20 MG TABLET (FP) PO SCH (10:27)
[2020-06-29] MEDS: ENOXAPARIN NA (PORCINE) 40 MG/0.4 ML DISP.SYRIN SQ SCH ×2 (10:27→21:58)
[2020-06-29] MEDS: ASPIRIN COATED 81 MG TABLET.EC PO SCH (10:27)
[2020-06-29] MEDS: FERROUS SO4 325 MG TABLET (FP) PO SCH ×2 (10:27→21:58)
[2020-06-29] MEDS: FAMOTIDINE 20 MG TABLET PO SCH (10:28)
[2020-06-29] MEDS: POLYETHYLENE GLYCOL 3350 119 GM BTL PO SCH (10:32)
[2020-06-29] MEDS: BUDESONIDE/FORMETEROL FUMARATE 160/4.5 mcg INHALER IH SCH ×2 (10:48→21:58)
[2020-06-29] MEDS: AZITHROMYCIN IVPB 500 MG/250 ML BAG IVPB SCH (11:00)
[2020-06-29] MEDS ORDERED: MODERNA COVID-19 VACC,MRNA/PF 100 MCG/0.5 ML IM ONE (16:00)
[2020-06-29] MEDS ORDERED: HYDROCORTISONE 1% TOPICAL CREAM 30 GM TUBE TP PRN (18:24)
[2020-06-29] MEDS: ESCITALOPRAM OXALATE 10 MG TABLET PO SCH (21:57)
[2020-06-29] MEDS: MELATONIN 5 MG TABLETS PO SCH (21:59)
[2020-06-30] MEDS: LEVOTHYROXINE NA 88 MCG TABLET (FP) PO SCH (06:03)
[2020-06-30] MEDS: DOCUSATE SODIUM 100 MG CAPSULE (FP) PO SCH ×2 (06:04→14:47)
[2020-06-30] MEDS: FUROSEMIDE 20 MG TABLET (FP) PO SCH (10:11)
[2020-06-30] MEDS: FAMOTIDINE 20 MG TABLET PO SCH (10:11)
[2020-06-30] MEDS: BUDESONIDE/FORMETEROL FUMARATE 160/4.5 mcg INHALER IH SCH (10:11)
[2020-06-30] MEDS: FERROUS SO4 325 MG TABLET (FP) PO SCH (10:11)
[2020-06-30] MEDS: ASPIRIN COATED 81 MG TABLET.EC PO SCH (10:11)
[2020-06-30] MEDS: ENOXAPARIN NA (PORCINE) 40 MG/0.4 ML DISP.SYRIN SQ SCH (10:11)
[2020-06-30] MEDS: POLYETHYLENE GLYCOL 3350 119 GM BTL PO SCH (10:11)
[2020-06-30 15:59] VITALS: BP 119/50; PULSE 71; TEMP 98.6
== END 2020-06-30 19:22 | disposition home health service (06) | DRG 202 ==
LOC: FER 19:37 → FM/S 22:16 → UNDOADMIN 06-17 00:33 → JICU 06-24 12:36
PROVIDERS: ADMIT Internal Medicine Pulmonary Disease; ATTEND Internal Medicine Pulmonary Disease
PROC: XW033E5 Introduction of Remdesivir Anti-infective into Peripheral Vein, Percutaneous Approach, New Technology Group 5 (ICD-10-PCS; principal; 2020-06-24)
DX: J45.901 Unspecified asthma with (acute) exacerbation (principal); J18.9 Pneumonia, unspecified organism; J96.91 Respiratory failure, unspecified with hypoxia; L03.116 Cellulitis of left lower limb; I50.32 Chronic diastolic (congestive) heart failure; Z68.41 Body mass index [BMI] 40.0-44.9, adult; E87.1 Hypo-osmolality and hyponatremia; N39.0 Urinary tract infection, site not specified; G95.89 Other specified diseases of spinal cord; E78.5 Hyperlipidemia, unspecified; E03.9 Hypothyroidism, unspecified; Z88.0 Allergy status to penicillin; R50.9 Fever, unspecified; I11.0 Hypertensive heart disease with heart failure; E66.9 Obesity, unspecified; J32.8 Other chronic sinusitis; B96.20 Unspecified Escherichia coli [E. coli] as the cause of diseases classified elsewhere; R26.2 Difficulty in walking, not elsewhere classified; Z63.4 Disappearance and death of family member; F41.8 Other specified anxiety disorders; D64.9 Anemia, unspecified; M17.11 Unilateral primary osteoarthritis, right knee
CPT/HCPCS: 0011A; 36415; 71045-TC-FY; 71250-TC; 72125-TC; 73560-TC-RT-FY; 73700-TC-RT; 74176-TC; 80048; 80053; 80061; 81003; 81015; 82272; 82550; 82570; 82607; 82728; 82747; 82803; 83540; 83550; 83605; 83615; 83690; 83735; 83880; 83935; 84156; 84300; 84484; 85014; 85025; 85379; 86140; 86157; 86480; 86738; 86769; 86850; 86900; 86901; 87040; 87070; 87086; 87186; 87205; 87305; 87449; 87899; 91301; 93005; 93970-TC; 93976; 94010; 94640; 94761; 97116-GP; 97162-GP; 99285-25; C9399; C9803; G0480; J0131; J1100; U0003; U0005

== ENCOUNTER 2022-03-26 17:00 | Inpatient (IN) | payer OTHER ==
[2022-03-26] MEDS ORDERED: LACTATED RINGERS SOLUTION 1,000 ML IV STA ×2 (17:23→17:24)
[2022-03-26 18:20] LABS: INR 1.18 (0.83-1.09); PROTHROMBIN TIME (PATIENT) 13.6 SEC (9.7-13.0)
[2022-03-26 18:23] LABS: ACTIVATED PTT 26.9 SECONDS (25.2-36.5)
[2022-03-26] MEDS ORDERED: VANCOMYCIN 2,000 MG in DEXTROSE 5%-WATER - 250 ML IVPB ONE (18:29)
[2022-03-26 18:32] LABS: ALBUMIN 3.1 g/dl (3.4-5.0); BILIRUBIN,TOTAL 0.8 mg/dl (0.2-1); CALCIUM 8.9 mg/dl (8.5-10); CREATININE 1.6 mg/dl (0.55-1.3); TOT PROT 6.1 g/dl (6.4-8.2)
[2022-03-26] MEDS ORDERED: CEFEPIME HCL/D5W 1 GM/50 ML BAG IVPB ONE (18:52)
[2022-03-26] MEDS ORDERED: CEFEPIME HCL 2 GM VIAL (RESTRICTED TO ID) ONE (18:57)
[2022-03-26 19:11] LABS: HEMATOCRIT 31.9 % (32.4-45.2); HEMOGLOBIN 10.8 G/dL (10.7-15.3); MCHC 33.9 g/dl (32.0-36.0); MEAN CELL VOLUME 97.2 fl (80-96); MEAN PLT VOLUME 10.2 fl (7.5-11.1); PLATELET COUNT 129.9 10^3/uL (134-434); RBC 3.28 10^6/uL (3.60-5.2); RDW 14.2 % (11.6-15.6); WHITE BLOOD COUNT 15.5 10^3/uL (4.0-10.8)
[2022-03-26] MEDS ORDERED: CEFEPIME HCL/D5W 2 GM/50 ML BAG IVPB ONE (19:13)
[2022-03-26] MEDS ORDERED: VANCOMYCIN 1,000 MG VIAL (RESTRICTED TO ID ONLY) ONE (19:46)
[2022-03-26 20:14] LABS: LACTIC ACID 2.2 mmol/L (0.4-2.0)
[2022-03-26] MEDS ORDERED: ENOXAPARIN NA (PORCINE) 100 MG/1 ML DISP.SYRIN SQ ONE ×2 (20:21→21:40)
[2022-03-26] MEDS ORDERED: ACETAMINOPHEN 1000 MG/100 ML BAG IVPB ONE (20:43)
[2022-03-26] MEDS ORDERED: ACETAMINOPHEN INJECTION 100 ML IVPB ONE (20:46)
[2022-03-26 20:56] LABS: PLATELET ESTIMATE SLT DECREASE
[2022-03-26] MEDS ORDERED: ENOXAPARIN NA (PORCINE) 60 MG/0.6 ML DISP.SYRIN SQ ONE (21:40)
[2022-03-26] MEDS ORDERED: LACTATED RINGERS SOLUTION 1000 ML INFUS.BAG IV ONE (23:15)
[2022-03-26] MEDS ORDERED: PHENYLEPHRINE NS PREMIX 50,000 MCG/500 ML BAG CVP SCH (23:15)
[2022-03-27] MEDS: PHENYLEPHRINE NS PREMIX 50,000 MCG/500 ML BAG CVP SCH (02:01)
[2022-03-27] MEDS: LEVOTHYROXINE NA 88 MCG TABLET (FP) PO SCH (06:57)
[2022-03-27] MEDS ORDERED: DEXMEDETOMIDINE PREMIX 400 MCG/100 ML BAG IVPB ONE (07:41)
[2022-03-27] MEDS ORDERED: ALBUTEROL SO4 HFA INHALER IH PRN (08:01)
[2022-03-27 08:09] LABS: HEMOGLOBIN 10.5 GM/dL (10.7-15.3); MCH 31.7 pg (25.7-33.7); MEAN CELL VOLUME 96.2 fl (80-96); MEAN PLT VOLUME 10.6 fl (7.5-11.1); PLATELET COUNT 146 10^3/uL (134-434); RBC 3.32 M/mm3 (3.60-5.2); RDW 13.6 % (11.6-15.6); WHITE BLOOD COUNT 20.9 K/mm3 (4.0-10.0)
[2022-03-27 08:17] LABS: INR 1.4 (0.83-1.09); PROTHROMBIN TIME (PATIENT) 16.2 SEC (9.7-13.0)
[2022-03-27 08:19] LABS: ACTIVATED PTT 44.3 SECONDS (25.2-36.5)
[2022-03-27 08:24] LABS: CHLORIDE 101 mmol/L (98-107); SODIUM 136 mmol/L (136-145)
[2022-03-27 08:31] LABS: CREATININE 1.4 mg/dL (0.55-1.3); SGOT/AST 48 U/L (15-37); SGPT/ALT 23 U/L (13-61)
[2022-03-27 08:32] LABS: ANION GAP 9 MMOL/L (8-16); CO2 26 mmol/L (21-32)
[2022-03-27 08:33] LABS: TOT PROT 5.8 g/dl (6.4-8.2)
[2022-03-27] MEDS ORDERED: ALBUTEROL SO4 2.5/IPRATROPIUM 0.5 INH SOL 3 ML VIAL.NEB. NEB ONE (08:33)
[2022-03-27 08:35] LABS: ALBUMIN 2.7 g/dl (3.4-5.0); CALCIUM 9.4 mg/dL (8.5-10.1); GLUCOSE,RANDOM 60 mg/dL (74-106)
[2022-03-27] MEDS ORDERED: LACTATED RINGERS SOLUTION 1000 ML INFUS.BAG IV ONE (08:36)
[2022-03-27] MEDS ORDERED: DEXTROSE 50%-WATER - 25 GM/50 ML VIAL IVPUSH ONE (08:37)
[2022-03-27 08:38] LABS: BILIRUBIN,DIRECT 0.2 mg/dL (0.0-0.2); PHOSPHOROUS 2.5 mg/dL (2.5-4.9)
[2022-03-27 08:39] LABS: BILIRUBIN,TOTAL 0.5 mg/dL (0.2-1)
[2022-03-27 08:41] LABS: ALK PHOS 64 U/L (45-117)
[2022-03-27] MEDS ORDERED: HEPARIN NA (PORCINE) 5,000 UNITS/ML 1ML VIAL IVPUSH PRN ×2 (09:09)
[2022-03-27] MEDS ORDERED: DEXTROSE 50%-WATER 25 GM/50 ML DISP.SYRIN ONE (09:47)
[2022-03-27] MEDS ORDERED: CEFEPIME 2 GM in DEXTROSE 5%-WATER - 100 ML IVPB SCH (10:00)
[2022-03-27] MEDS ORDERED: ENOXAPARIN NA (PORCINE) 100 MG/1 ML DISP.SYRIN SQ SCH (10:00)
[2022-03-27] MEDS ORDERED: VANCOMYCIN/WATER 1,250 MG/250 ML BAG (RESTRICTED TO ID ONLY) IVPB ONE (10:00)
[2022-03-27] MEDS ORDERED: BUDESONIDE/FORMETEROL FUMARATE 160/4.5 mcg INHALER IH SCH (10:00)
[2022-03-27] MEDS ORDERED: CEFEPIME 2 GM in DEXTROSE 5%-WATER 100 ML IVPB SCH (10:00)
[2022-03-27] MEDS ORDERED: HEPARIN INFUSION - 25,000 UNITS/500 ML INFUS.BAG IVPB SCH (11:00)
[2022-03-27] MEDS: CEFEPIME 1 GM in DEXTROSE 5%-WATER 100 ML IVPB SCH ×2 (11:00→18:53)
[2022-03-27] MEDS ORDERED: ACETAMINOPHEN 1000 MG/100 ML BAG IVPB ONE ×2 (11:58→19:24)
[2022-03-27] MEDS ORDERED: ACETAMINOPHEN 325 MG TABLET (FP) PO PRN (12:16)
[2022-03-27] MEDS ORDERED: SODIUM CHLORIDE 0.45% 1,000 ML IV SCH ×2 (15:30)
[2022-03-27 17:39] LABS: BLOOD UREA NITROGEN 43.2 mg/dL (7-18); CALCIUM 9.3 mg/dL (8.5-10.1)
[2022-03-27 17:42] LABS: CREATININE 1.3 mg/dL (0.55-1.3)
[2022-03-27] MEDS ORDERED: ACETAMINOPHEN 1000 MG/100 ML BAG IVPB STA (21:00)
[2022-03-27] MEDS: ESCITALOPRAM OXALATE 10 MG TABLET PO SCH (22:09)
[2022-03-27] MEDS: CHLORHEXIDINE GLUCONATE 4% CLEANSER FOR DECOLONIZATION TP SCH (22:09)
[2022-03-27] MEDS: ATORVASTATIN CA 10 MG TABLET (FP) PO SCH (22:09)
[2022-03-27] MEDS: MUPIROCIN 2% TOPICAL OINTMENT FOR DECOLONIZATION NS SCH (22:09)
[2022-03-28] MEDS: PHENYLEPHRINE NS PREMIX 50,000 MCG/500 ML BAG CVP SCH ×2 (02:38→11:10)
[2022-03-28] MEDS: CEFEPIME 1 GM in DEXTROSE 5%-WATER 100 ML IVPB SCH ×3 (02:42→17:09)
[2022-03-28] MEDS: AMINO ACIDS/PROTEIN HYDROLYS 30 ML LIQUID.PKT PO SCH (08:10)
[2022-03-28] MEDS: LEVOTHYROXINE NA 88 MCG TABLET (FP) PO SCH (08:10)
[2022-03-28] MEDS: MUPIROCIN 2% TOPICAL OINTMENT FOR DECOLONIZATION NS SCH ×2 (09:08→21:00)
[2022-03-28] MEDS: MULTIVITAMINS (DAILY MVI) TABLET (FP) PO SCH (09:08)
[2022-03-28 09:33] LABS: HEMATOCRIT 23.1 % (32.4-45.2); HEMOGLOBIN 7.6 GM/dL (10.7-15.3); MCH 32.1 pg (25.7-33.7); MCHC 32.9 g/dl (32.0-36.0); MEAN CELL VOLUME 97.5 fl (80-96); MEAN PLT VOLUME 11.3 fl (7.5-11.1); PLATELET COUNT 89 10^3/uL (134-434); RBC 2.37 M/mm3 (3.60-5.2); RDW 14.2 % (11.6-15.6); WHITE BLOOD COUNT 10.2 K/mm3 (4.0-10.0)
[2022-03-28 10:10] LABS: ALBUMIN 2.3 g/dl (3.4-5.0); BLOOD UREA NITROGEN 33.7 mg/dL (7-18); CALCIUM 8.9 mg/dL (8.5-10.1)
[2022-03-28 10:12] LABS: MAGNESIUM 2.2 mg/dL (1.8-2.4)
[2022-03-28 10:14] LABS: CREATININE 0.9 mg/dL (0.55-1.3); PHOSPHOROUS 2.6 mg/dL (2.5-4.9)
[2022-03-28 10:15] LABS: BILIRUBIN,TOTAL 0.4 mg/dL (0.2-1); TOT PROT 5.4 g/dl (6.4-8.2)
[2022-03-28] MEDS: BUDESONIDE/FORMETEROL FUMARATE 160/4.5 mcg INHALER IH SCH ×2 (10:42→21:01)
[2022-03-28] MEDS ORDERED: POTASSIUM CHLORIDE ORAL LIQUID 20 MEQ/15 ML PO ONE (10:45)
[2022-03-28 11:24] LABS: BASO % 0.3 % (0-2.0); EOS % 0.9 % (0-4.5); LYMPH % 3.6 % (8-40); MCH 31.3 pg (25.7-33.7); MCHC 32.4 g/dl (32.0-36.0); MEAN CELL VOLUME 96.6 fl (80-96); MEAN PLT VOLUME 10.6 fl (7.5-11.1); MONO % 8.1 % (3.8-10.2); NEUT % 87.1 % (42.8-82.8); PLATELET COUNT 113 10^3/uL (134-434); RBC 3.21 M/mm3 (3.60-5.2); RDW 14.1 % (11.6-15.6)
[2022-03-28] MEDS: APIXABAN 5 MG TABLET PO SCH ×2 (11:45→21:00)
[2022-03-28] MEDS: POLYETHYLENE GLYCOL (HEALTHYLAX) 3350 17 GM PACKET PO SCH (18:44)
[2022-03-28] MEDS: ACETAMINOPHEN 1000 MG/100 ML BAG IVPB PRN (18:49)
[2022-03-28] MEDS: ESCITALOPRAM OXALATE 10 MG TABLET PO SCH (20:59)
[2022-03-28] MEDS: ATORVASTATIN CA 10 MG TABLET (FP) PO SCH (21:00)
[2022-03-28] MEDS: CHLORHEXIDINE GLUCONATE 4% CLEANSER FOR DECOLONIZATION TP SCH (21:00)
[2022-03-29] MEDS: PHENYLEPHRINE NS PREMIX 50,000 MCG/500 ML BAG CVP SCH (00:53)
[2022-03-29] MEDS: CEFEPIME 1 GM in DEXTROSE 5%-WATER 100 ML IVPB SCH ×2 (02:02→09:55)
[2022-03-29] MEDS: ACETAMINOPHEN 1000 MG/100 ML BAG IVPB PRN (05:15)
[2022-03-29] MEDS: LEVOTHYROXINE NA 88 MCG TABLET (FP) PO SCH (07:16)
[2022-03-29] MEDS ORDERED: AMMONIUM LACTATE 12% LOTION 225 GM BOTTLE TP PRN (08:22)
[2022-03-29 09:12] LABS: HEMATOCRIT 28.5 % (32.4-45.2); HEMOGLOBIN 9.4 GM/dL (10.7-15.3); MCH 31.9 pg (25.7-33.7); MCHC 33.1 g/dl (32.0-36.0); MEAN CELL VOLUME 96.5 fl (80-96); MEAN PLT VOLUME 11.4 fl (7.5-11.1); PLATELET COUNT 113 10^3/uL (134-434); RBC 2.95 M/mm3 (3.60-5.2); RDW 13.7 % (11.6-15.6); WHITE BLOOD COUNT 7.3 K/mm3 (4.0-10.0)
[2022-03-29 09:52] LABS: BLOOD UREA NITROGEN 22.6 mg/dL (7-18); CALCIUM 8.9 mg/dL (8.5-10.1)
[2022-03-29 09:53] LABS: ALBUMIN 2.2 g/dl (3.4-5.0); MAGNESIUM 2.1 mg/dL (1.8-2.4)
[2022-03-29 09:54] LABS: PHOSPHOROUS 1.7 mg/dL (2.5-4.9)
[2022-03-29] MEDS: APIXABAN 5 MG TABLET PO SCH ×2 (09:54→21:33)
[2022-03-29] MEDS: MULTIVITAMINS (DAILY MVI) TABLET (FP) PO SCH (09:54)
[2022-03-29] MEDS: POLYETHYLENE GLYCOL (HEALTHYLAX) 3350 17 GM PACKET PO SCH (09:54)
[2022-03-29] MEDS: AMINO ACIDS/PROTEIN HYDROLYS 30 ML LIQUID.PKT PO SCH (09:54)
[2022-03-29 09:55] LABS: CREATININE 0.6 mg/dL (0.55-1.3)
[2022-03-29] MEDS: MUPIROCIN 2% TOPICAL OINTMENT FOR DECOLONIZATION NS SCH ×2 (09:55→21:33)
[2022-03-29] MEDS: BUDESONIDE/FORMETEROL FUMARATE 160/4.5 mcg INHALER IH SCH ×2 (09:55→21:33)
[2022-03-29 09:56] LABS: BILIRUBIN,TOTAL 0.4 mg/dL (0.2-1); TOT PROT 5.2 g/dl (6.4-8.2)
[2022-03-29] MEDS ORDERED: NAPH,MB-DB/K PH,MBDB POWDER PACKET PO ONE ×2 (11:30→18:00)
[2022-03-29] MEDS ORDERED: CEFTRIAXONE 2 GM in DEXTROSE 5%-WATER 100 ML IVPB SCH (18:00)
[2022-03-29] MEDS: ESCITALOPRAM OXALATE 10 MG TABLET PO SCH (20:32)
[2022-03-29] MEDS: ATORVASTATIN CA 10 MG TABLET (FP) PO SCH (21:33)
[2022-03-29] MEDS: CHLORHEXIDINE GLUCONATE 4% CLEANSER FOR DECOLONIZATION TP SCH (21:33)
[2022-03-29] MEDS ORDERED: LIDOCAINE PATCH REMOVAL MC SCH (22:00)
[2022-03-29] MEDS ORDERED: BACLOFEN 10 MG TABLET (FP) PO PRN (22:29)
[2022-03-30] MEDS: PHENYLEPHRINE NS PREMIX 50,000 MCG/500 ML BAG CVP SCH (00:23)
[2022-03-30] MEDS: ACETAMINOPHEN 500 MG TABLET (FP) PO SCH ×2 (00:38→05:58)
[2022-03-30] MEDS: GABAPENTIN 100 MG CAPSULE PO SCH ×2 (05:58)
[2022-03-30] MEDS: LEVOTHYROXINE NA 88 MCG TABLET (FP) PO SCH ×2 (05:59→07:40)
[2022-03-30] MEDS ORDERED: ALBUTEROL SO4 HFA INHALER IH PRN (06:59)
[2022-03-30] MEDS ORDERED: AMMONIUM LACTATE 12% LOTION 225 GM BOTTLE TP PRN (06:59)
[2022-03-30] MEDS ORDERED: BACLOFEN 10 MG TABLET (FP) PO PRN (06:59)
[2022-03-30] MEDS ORDERED: ACETAMINOPHEN 1000 MG/100 ML BAG IVPB PRN (07:03)
[2022-03-30 07:54] LABS: ALBUMIN 2.4 g/dl (3.4-5.0); BLOOD UREA NITROGEN 14.5 mg/dL (7-18); CALCIUM 9.1 mg/dL (8.5-10.1)
[2022-03-30 07:56] LABS: CREATININE 0.5 mg/dL (0.55-1.3)
[2022-03-30 07:58] LABS: PHOSPHOROUS 1.7 mg/dL (2.5-4.9)
[2022-03-30 07:59] LABS: BILIRUBIN,TOTAL 0.3 mg/dL (0.2-1); TOT PROT 5.6 g/dl (6.4-8.2)
[2022-03-30] MEDS ORDERED: LIDOCAINE 5% TOPICAL PATCH TP SCH (10:00)
[2022-03-30] MEDS: BUDESONIDE/FORMETEROL FUMARATE 160/4.5 mcg INHALER IH SCH ×2 (10:00→22:27)
[2022-03-30] MEDS: MUPIROCIN 2% TOPICAL OINTMENT FOR DECOLONIZATION NS SCH ×2 (10:47→22:25)
[2022-03-30] MEDS: AMINO ACIDS/PROTEIN HYDROLYS 30 ML LIQUID.PKT PO SCH (11:01)
[2022-03-30] MEDS: APIXABAN 5 MG TABLET PO SCH ×2 (11:01→22:25)
[2022-03-30] MEDS: POLYETHYLENE GLYCOL (HEALTHYLAX) 3350 17 GM PACKET PO SCH (11:01)
[2022-03-30] MEDS: MULTIVITAMINS (DAILY MVI) TABLET (FP) PO SCH (11:02)
[2022-03-30] MEDS: DULoxetine HCL 30 MG CAPSULE.DR PO SCH (11:02)
[2022-03-30] MEDS: CEFTRIAXONE 2 GM in DEXTROSE 5%-WATER 100 ML IVPB SCH (11:18)
[2022-03-30] MEDS: NAPH,MB-DB/K PH,MBDB POWDER PACKET PO SCH ×2 (12:00→22:27)
[2022-03-30] MEDS ORDERED: GABAPENTIN 100 MG CAPSULE PO SCH (14:00)
[2022-03-30] MEDS ORDERED: ACETAMINOPHEN 500 MG TABLET (FP) PO SCH (14:30)
[2022-03-30] MEDS: LIDOCAINE 5% TOPICAL PATCH TP SCH (15:47)
[2022-03-30] MEDS ORDERED: ESCITALOPRAM OXALATE 10 MG TABLET PO SCH (20:00)
[2022-03-30] MEDS: LIDOCAINE PATCH REMOVAL MC SCH (22:27)
[2022-03-30] MEDS: ATORVASTATIN CA 10 MG TABLET (FP) PO SCH (22:27)
[2022-03-30] MEDS: CHLORHEXIDINE GLUCONATE 4% CLEANSER FOR DECOLONIZATION TP SCH (22:27)
[2022-03-30] MEDS ORDERED: DULoxetine HCL 30 MG CAPSULE.DR PO SCH (22:31)
[2022-03-31] MEDS: LEVOTHYROXINE NA 88 MCG TABLET (FP) PO SCH (06:15)
[2022-03-31 08:45] LABS: HEMATOCRIT 31.4 % (32.4-45.2); HEMOGLOBIN 10.4 GM/dL (10.7-15.3); MCH 31.7 pg (25.7-33.7); MCHC 33.2 g/dl (32.0-36.0); MEAN CELL VOLUME 95.7 fl (80-96); MEAN PLT VOLUME 10.8 fl (7.5-11.1); PLATELET COUNT 138 10^3/uL (134-434); RBC 3.28 M/mm3 (3.60-5.2); RDW 13.5 % (11.6-15.6); WHITE BLOOD COUNT 5.4 K/mm3 (4.0-10.0)
[2022-03-31 09:01] LABS: CHLORIDE 106 mmol/L (98-107); SODIUM 139 mmol/L (136-145)
[2022-03-31 09:10] LABS: ALBUMIN 2.4 g/dl (3.4-5.0); ANION GAP 7 MMOL/L (8-16); CALCIUM 9.3 mg/dL (8.5-10.1); CO2 26 mmol/L (21-32); GLUCOSE,RANDOM 88 mg/dL (74-106)
[2022-03-31 09:13] LABS: CREATININE 0.4 mg/dL (0.55-1.3); SGOT/AST 27 U/L (15-37); SGPT/ALT 34 U/L (13-61)
[2022-03-31 09:15] LABS: BILIRUBIN,TOTAL 0.5 mg/dL (0.2-1)
[2022-03-31 09:16] LABS: ALK PHOS 59 U/L (45-117)
[2022-03-31] MEDS: NAPH,MB-DB/K PH,MBDB POWDER PACKET PO SCH (09:27)
[2022-03-31] MEDS: MULTIVITAMINS (DAILY MVI) TABLET (FP) PO SCH (09:27)
[2022-03-31] MEDS: AMINO ACIDS/PROTEIN HYDROLYS 30 ML LIQUID.PKT PO SCH (09:27)
[2022-03-31] MEDS: APIXABAN 5 MG TABLET PO SCH ×2 (09:27→22:05)
[2022-03-31] MEDS: POLYETHYLENE GLYCOL (HEALTHYLAX) 3350 17 GM PACKET PO SCH (09:28)
[2022-03-31] MEDS: DULoxetine HCL 30 MG CAPSULE.DR PO SCH (09:28)
[2022-03-31] MEDS: MUPIROCIN 2% TOPICAL OINTMENT FOR DECOLONIZATION NS SCH ×2 (09:28→22:10)
[2022-03-31] MEDS: LIDOCAINE 5% TOPICAL PATCH TP SCH (09:28)
[2022-03-31 09:29] LABS: ANISOCYTOSIS 2+; MACROCYTOSIS 0; OVALOCYTE 1+
[2022-03-31] MEDS: CEFTRIAXONE 2 GM in DEXTROSE 5%-WATER 100 ML IVPB SCH (09:29)
[2022-03-31] MEDS: BUDESONIDE/FORMETEROL FUMARATE 160/4.5 mcg INHALER IH SCH ×2 (09:30→22:02)
[2022-03-31 13:04] VITALS: BMI 40.2
[2022-03-31] MEDS: PHENYLEPHRINE NS PREMIX 50,000 MCG/500 ML BAG CVP SCH (21:55)
[2022-03-31] MEDS: ACETAMINOPHEN 325 MG TABLET (FP) PO PRN (22:05)
[2022-03-31] MEDS: ATORVASTATIN CA 10 MG TABLET (FP) PO SCH (22:05)
[2022-03-31] MEDS: LIDOCAINE PATCH REMOVAL MC SCH (22:10)
[2022-03-31] MEDS: CHLORHEXIDINE GLUCONATE 4% CLEANSER FOR DECOLONIZATION TP SCH (23:00)
[2022-04-01] MEDS: LEVOTHYROXINE NA 88 MCG TABLET (FP) PO SCH (06:35)
[2022-04-01] MEDS: ACETAMINOPHEN 325 MG TABLET (FP) PO PRN ×2 (06:35→21:52)
[2022-04-01 07:54] LABS: ALBUMIN 2.5 g/dl (3.4-5.0); CALCIUM 9.3 mg/dL (8.5-10.1); MAGNESIUM 1.8 mg/dL (1.8-2.4)
[2022-04-01 07:55] LABS: BLOOD UREA NITROGEN 9.4 mg/dL (7-18)
[2022-04-01 07:57] LABS: PHOSPHOROUS 2.4 mg/dL (2.5-4.9)
[2022-04-01 07:59] LABS: BILIRUBIN,TOTAL 0.6 mg/dL (0.2-1); TOT PROT 6.1 g/dl (6.4-8.2)
[2022-04-01 08:00] LABS: CREATININE 0.4 mg/dL (0.55-1.3)
[2022-04-01] MEDS: MUPIROCIN 2% TOPICAL OINTMENT FOR DECOLONIZATION NS SCH (10:23)
[2022-04-01] MEDS: AMINO ACIDS/PROTEIN HYDROLYS 30 ML LIQUID.PKT PO SCH (10:23)
[2022-04-01] MEDS: DULoxetine HCL 30 MG CAPSULE.DR PO SCH (10:24)
[2022-04-01] MEDS: MULTIVITAMINS (DAILY MVI) TABLET (FP) PO SCH (10:24)
[2022-04-01] MEDS: CEFTRIAXONE 2 GM in DEXTROSE 5%-WATER 100 ML IVPB SCH (10:24)
[2022-04-01] MEDS: LIDOCAINE 5% TOPICAL PATCH TP SCH (10:24)
[2022-04-01] MEDS: APIXABAN 5 MG TABLET PO SCH ×2 (10:24→21:53)
[2022-04-01] MEDS: POLYETHYLENE GLYCOL (HEALTHYLAX) 3350 17 GM PACKET PO SCH (10:24)
[2022-04-01] MEDS: BUDESONIDE/FORMETEROL FUMARATE 160/4.5 mcg INHALER IH SCH ×2 (10:24→21:54)
[2022-04-01] MEDS: CHLORHEXIDINE GLUCONATE 4% CLEANSER FOR DECOLONIZATION TP SCH (21:53)
[2022-04-01] MEDS: LIDOCAINE PATCH REMOVAL MC SCH (21:53)
[2022-04-01] MEDS: ATORVASTATIN CA 10 MG TABLET (FP) PO SCH (21:53)
[2022-04-02] MEDS: LEVOTHYROXINE NA 88 MCG TABLET (FP) PO SCH (06:02)
[2022-04-02 08:13] LABS: CALCIUM 9.3 mg/dL (8.5-10.1)
[2022-04-02 08:14] LABS: ALBUMIN 2.4 g/dl (3.4-5.0); BLOOD UREA NITROGEN 9.9 mg/dL (7-18)
[2022-04-02 08:17] LABS: CREATININE 0.4 mg/dL (0.55-1.3)
[2022-04-02 08:18] LABS: BILIRUBIN,TOTAL 0.5 mg/dL (0.2-1); TOT PROT 5.7 g/dl (6.4-8.2)
[2022-04-02] MEDS: ACETAMINOPHEN 325 MG TABLET (FP) PO PRN (09:52)
[2022-04-02] MEDS: POLYETHYLENE GLYCOL (HEALTHYLAX) 3350 17 GM PACKET PO SCH (09:53)
[2022-04-02] MEDS: AMINO ACIDS/PROTEIN HYDROLYS 30 ML LIQUID.PKT PO SCH (09:53)
[2022-04-02] MEDS: DULoxetine HCL 30 MG CAPSULE.DR PO SCH (09:53)
[2022-04-02] MEDS: APIXABAN 5 MG TABLET PO SCH ×2 (09:53→22:00)
[2022-04-02] MEDS: LIDOCAINE 5% TOPICAL PATCH TP SCH (09:53)
[2022-04-02] MEDS: MULTIVITAMINS (DAILY MVI) TABLET (FP) PO SCH (09:54)
[2022-04-02] MEDS: BUDESONIDE/FORMETEROL FUMARATE 160/4.5 mcg INHALER IH SCH ×2 (09:54→22:00)
[2022-04-02] MEDS: CEFTRIAXONE 2 GM in DEXTROSE 5%-WATER 100 ML IVPB SCH (09:54)
[2022-04-02] MEDS: CEFUROXIME AXETIL 500 MG TABLET PO SCH ×2 (12:00→21:59)
[2022-04-02] MEDS: CHLORHEXIDINE GLUCONATE 4% CLEANSER FOR DECOLONIZATION TP SCH (22:00)
[2022-04-02] MEDS: ATORVASTATIN CA 10 MG TABLET (FP) PO SCH (22:00)
[2022-04-02] MEDS: LIDOCAINE PATCH REMOVAL MC SCH (22:00)
[2022-04-02] MEDS: ACETAMINOPHEN 500 MG TABLET (FP) PO PRN (22:02)
[2022-04-03] MEDS: LEVOTHYROXINE NA 88 MCG TABLET (FP) PO SCH (06:52)
[2022-04-03] MEDS: APIXABAN 5 MG TABLET PO SCH ×2 (11:14→21:23)
[2022-04-03] MEDS: CEFUROXIME AXETIL 500 MG TABLET PO SCH ×2 (11:15→23:00)
[2022-04-03] MEDS: MULTIVITAMINS (DAILY MVI) TABLET (FP) PO SCH (11:15)
[2022-04-03] MEDS: FUROSEMIDE 20 MG TABLET (FP) PO SCH (11:15)
[2022-04-03] MEDS: POLYETHYLENE GLYCOL (HEALTHYLAX) 3350 17 GM PACKET PO SCH (11:15)
[2022-04-03] MEDS: DULoxetine HCL 30 MG CAPSULE.DR PO SCH (11:15)
[2022-04-03] MEDS: BUDESONIDE/FORMETEROL FUMARATE 160/4.5 mcg INHALER IH SCH ×2 (11:16→21:23)
[2022-04-03] MEDS: AMINO ACIDS/PROTEIN HYDROLYS 30 ML LIQUID.PKT PO SCH (11:16)
[2022-04-03] MEDS: LIDOCAINE 5% TOPICAL PATCH TP SCH (11:16)
[2022-04-03 16:29] LABS: HEMATOCRIT 31.9 % (32.4-45.2); HEMOGLOBIN 10.6 GM/dL (10.7-15.3); MCH 31.8 pg (25.7-33.7); MCHC 33.1 g/dl (32.0-36.0); MEAN CELL VOLUME 95.8 fl (80-96); MEAN PLT VOLUME 9.3 fl (7.5-11.1); PLATELET COUNT 279 10^3/uL (134-434); RBC 3.33 M/mm3 (3.60-5.2); RDW 13.7 % (11.6-15.6); WHITE BLOOD COUNT 7.4 K/mm3 (4.0-10.0)
[2022-04-03 16:31] LABS: BLOOD UREA NITROGEN 14.8 mg/dL (7-18); CALCIUM 9.8 mg/dL (8.5-10.1)
[2022-04-03 16:32] LABS: ALBUMIN 2.5 g/dl (3.4-5.0); MAGNESIUM 1.9 mg/dL (1.8-2.4)
[2022-04-03 16:34] LABS: CREATININE 0.6 mg/dL (0.55-1.3)
[2022-04-03 16:35] LABS: PHOSPHOROUS 2.9 mg/dL (2.5-4.9)
[2022-04-03 16:36] LABS: BILIRUBIN,TOTAL 0.3 mg/dL (0.2-1)
[2022-04-03] MEDS: ACETAMINOPHEN 500 MG TABLET (FP) PO PRN (19:51)
[2022-04-03] MEDS: CHLORHEXIDINE GLUCONATE 4% CLEANSER FOR DECOLONIZATION TP SCH (21:23)
[2022-04-03] MEDS: ATORVASTATIN CA 10 MG TABLET (FP) PO SCH (21:23)
[2022-04-03] MEDS: MELATONIN 5 MG TABLETS PO PRN (21:23)
[2022-04-03] MEDS: LIDOCAINE PATCH REMOVAL MC SCH (21:23)
[2022-04-04] MEDS: LEVOTHYROXINE NA 88 MCG TABLET (FP) PO SCH (06:03)
[2022-04-04 08:27] LABS: HEMATOCRIT 30.9 % (32.4-45.2); HEMOGLOBIN 10.3 GM/dL (10.7-15.3); MCH 31.7 pg (25.7-33.7); MCHC 33.2 g/dl (32.0-36.0); MEAN CELL VOLUME 95.4 fl (80-96); MEAN PLT VOLUME 9.1 fl (7.5-11.1); PLATELET COUNT 263 10^3/uL (134-434); RBC 3.24 M/mm3 (3.60-5.2); RDW 13.9 % (11.6-15.6); WHITE BLOOD COUNT 6.8 K/mm3 (4.0-10.0)
[2022-04-04 08:31] LABS: BLOOD UREA NITROGEN 13.5 mg/dL (7-18); CALCIUM 9.6 mg/dL (8.5-10.1); MAGNESIUM 1.9 mg/dL (1.8-2.4)
[2022-04-04 08:35] LABS: CREATININE 0.4 mg/dL (0.55-1.3); PHOSPHOROUS 3.2 mg/dL (2.5-4.9)
[2022-04-04] MEDS: DULoxetine HCL 30 MG CAPSULE.DR PO SCH (09:33)
[2022-04-04] MEDS: LOSARTAN POTASSIUM 50 MG TABLET PO SCH (09:33)
[2022-04-04] MEDS: FUROSEMIDE 20 MG TABLET (FP) PO SCH (09:34)
[2022-04-04] MEDS: ACETAMINOPHEN 500 MG TABLET (FP) PO PRN ×2 (09:34→21:28)
[2022-04-04] MEDS: APIXABAN 5 MG TABLET PO SCH ×2 (09:34→21:12)
[2022-04-04] MEDS: CEFUROXIME AXETIL 500 MG TABLET PO SCH ×2 (09:35→21:28)
[2022-04-04] MEDS: POLYETHYLENE GLYCOL (HEALTHYLAX) 3350 17 GM PACKET PO SCH (09:35)
[2022-04-04] MEDS: AMINO ACIDS/PROTEIN HYDROLYS 30 ML LIQUID.PKT PO SCH (09:35)
[2022-04-04] MEDS: BUDESONIDE/FORMETEROL FUMARATE 160/4.5 mcg INHALER IH SCH ×2 (09:36→21:12)
[2022-04-04] MEDS: LIDOCAINE 5% TOPICAL PATCH TP SCH (09:36)
[2022-04-04] MEDS: MULTIVITAMINS (DAILY MVI) TABLET (FP) PO SCH (09:36)
[2022-04-04] MEDS ORDERED: COVID-19 VAC, BIVALENT (PFIZER)/PF 30 MCG/0.3 ML VIAL IM ONE (13:00)
[2022-04-04] MEDS: CHLORHEXIDINE GLUCONATE 4% CLEANSER FOR DECOLONIZATION TP SCH (21:12)
[2022-04-04] MEDS: ATORVASTATIN CA 10 MG TABLET (FP) PO SCH (21:12)
[2022-04-04] MEDS: LIDOCAINE PATCH REMOVAL MC SCH (21:12)
[2022-04-04] MEDS: MELATONIN 5 MG TABLETS PO PRN (21:30)
[2022-04-05] MEDS: ACETAMINOPHEN 500 MG TABLET (FP) PO PRN (04:16)
[2022-04-05] MEDS: LEVOTHYROXINE NA 88 MCG TABLET (FP) PO SCH (06:01)
[2022-04-05] MEDS: LOSARTAN POTASSIUM 50 MG TABLET PO SCH (10:55)
[2022-04-05] MEDS: APIXABAN 5 MG TABLET PO SCH ×2 (10:55→21:53)
[2022-04-05] MEDS: LIDOCAINE 5% TOPICAL PATCH TP SCH (10:55)
[2022-04-05] MEDS: POLYETHYLENE GLYCOL (HEALTHYLAX) 3350 17 GM PACKET PO SCH (10:55)
[2022-04-05] MEDS: AMINO ACIDS/PROTEIN HYDROLYS 30 ML LIQUID.PKT PO SCH (10:55)
[2022-04-05] MEDS: DULoxetine HCL 30 MG CAPSULE.DR PO SCH (10:55)
[2022-04-05] MEDS: MULTIVITAMINS (DAILY MVI) TABLET (FP) PO SCH (10:55)
[2022-04-05] MEDS: FUROSEMIDE 20 MG TABLET (FP) PO SCH (10:55)
[2022-04-05] MEDS: BUDESONIDE/FORMETEROL FUMARATE 160/4.5 mcg INHALER IH SCH ×2 (10:55→21:53)
[2022-04-05] MEDS: CHLORHEXIDINE GLUCONATE 4% CLEANSER FOR DECOLONIZATION TP SCH (21:53)
[2022-04-05] MEDS: LIDOCAINE PATCH REMOVAL MC SCH (21:53)
[2022-04-05] MEDS: ATORVASTATIN CA 10 MG TABLET (FP) PO SCH (21:53)
[2022-04-06] MEDS: LEVOTHYROXINE NA 88 MCG TABLET (FP) PO SCH (06:51)
[2022-04-06] MEDS: AMINO ACIDS/PROTEIN HYDROLYS 30 ML LIQUID.PKT PO SCH (09:27)
[2022-04-06] MEDS: POLYETHYLENE GLYCOL (HEALTHYLAX) 3350 17 GM PACKET PO SCH ×2 (09:27→16:52)
[2022-04-06] MEDS: ACETAMINOPHEN 500 MG TABLET (FP) PO PRN (09:28)
[2022-04-06] MEDS: LIDOCAINE 5% TOPICAL PATCH TP SCH (09:28)
[2022-04-06] MEDS: FUROSEMIDE 20 MG TABLET (FP) PO SCH (09:29)
[2022-04-06] MEDS: LOSARTAN POTASSIUM 50 MG TABLET PO SCH (09:37)
[2022-04-06] MEDS: DULoxetine HCL 30 MG CAPSULE.DR PO SCH (09:37)
[2022-04-06] MEDS: MULTIVITAMINS (DAILY MVI) TABLET (FP) PO SCH (09:37)
[2022-04-06] MEDS: APIXABAN 5 MG TABLET PO SCH ×2 (09:37→22:04)
[2022-04-06] MEDS: BUDESONIDE/FORMETEROL FUMARATE 160/4.5 mcg INHALER IH SCH ×2 (09:38→22:04)
[2022-04-06] MEDS ORDERED: HYDROCORTISONE 0.5% TOPICAL OINTMENT TUBE TP PRN (15:05)
[2022-04-06] MEDS ORDERED: HYDROCORTISONE 0.5% TOPICAL CREAM 30 GM TUBE TP PRN (15:27)
[2022-04-06] MEDS: ATORVASTATIN CA 10 MG TABLET (FP) PO SCH (22:04)
[2022-04-06] MEDS: CHLORHEXIDINE GLUCONATE 4% CLEANSER FOR DECOLONIZATION TP SCH (22:04)
[2022-04-06] MEDS: LIDOCAINE PATCH REMOVAL MC SCH (22:04)
[2022-04-07] MEDS: LEVOTHYROXINE NA 88 MCG TABLET (FP) PO SCH (06:43)
[2022-04-07] MEDS: ACETAMINOPHEN 500 MG TABLET (FP) PO PRN ×3 (07:47→22:00)
[2022-04-07] MEDS: AMINO ACIDS/PROTEIN HYDROLYS 30 ML LIQUID.PKT PO SCH (07:47)
[2022-04-07 08:55] LABS: CALCIUM 9.4 mg/dL (8.5-10.1)
[2022-04-07 08:56] LABS: ALBUMIN 2.6 g/dl (3.4-5.0); BLOOD UREA NITROGEN 16.5 mg/dL (7-18)
[2022-04-07 08:59] LABS: CREATININE 0.5 mg/dL (0.55-1.3)
[2022-04-07 09:00] LABS: BILIRUBIN,TOTAL 0.3 mg/dL (0.2-1); TOT PROT 5.9 g/dl (6.4-8.2)
[2022-04-07] MEDS: MULTIVITAMINS (DAILY MVI) TABLET (FP) PO SCH (10:20)
[2022-04-07] MEDS: LIDOCAINE 5% TOPICAL PATCH TP SCH (10:20)
[2022-04-07] MEDS: DULoxetine HCL 30 MG CAPSULE.DR PO SCH (10:20)
[2022-04-07] MEDS: FUROSEMIDE 20 MG TABLET (FP) PO SCH (10:21)
[2022-04-07] MEDS: LOSARTAN POTASSIUM 50 MG TABLET PO SCH (10:21)
[2022-04-07] MEDS: APIXABAN 5 MG TABLET PO SCH ×2 (10:22→22:16)
[2022-04-07] MEDS: POLYETHYLENE GLYCOL (HEALTHYLAX) 3350 17 GM PACKET PO SCH (10:23)
[2022-04-07] MEDS: BUDESONIDE/FORMETEROL FUMARATE 160/4.5 mcg INHALER IH SCH ×2 (10:23→22:16)
[2022-04-07] MEDS: LIDOCAINE PATCH REMOVAL MC SCH (22:16)
[2022-04-07] MEDS: ATORVASTATIN CA 10 MG TABLET (FP) PO SCH (22:16)
[2022-04-07] MEDS: CHLORHEXIDINE GLUCONATE 4% CLEANSER FOR DECOLONIZATION TP SCH (22:16)
[2022-04-08] MEDS: ACETAMINOPHEN 500 MG TABLET (FP) PO PRN ×2 (04:53→19:30)
[2022-04-08] MEDS: LEVOTHYROXINE NA 88 MCG TABLET (FP) PO SCH (06:26)
[2022-04-08 07:38] LABS: HEMATOCRIT 29.1 % (32.4-45.2); HEMOGLOBIN 9.8 GM/dL (10.7-15.3); MCH 32.1 pg (25.7-33.7); MCHC 33.8 g/dl (32.0-36.0); MEAN CELL VOLUME 94.9 fl (80-96); MEAN PLT VOLUME 9.4 fl (7.5-11.1); PLATELET COUNT 310 10^3/uL (134-434); RBC 3.07 M/mm3 (3.60-5.2); RDW 13.9 % (11.6-15.6); WHITE BLOOD COUNT 7.9 K/mm3 (4.0-10.0)
[2022-04-08 08:02] LABS: ALBUMIN 2.6 g/dl (3.4-5.0); BLOOD UREA NITROGEN 19.5 mg/dL (7-18); CALCIUM 9.1 mg/dL (8.5-10.1); MAGNESIUM 1.8 mg/dL (1.8-2.4)
[2022-04-08 08:04] LABS: PHOSPHOROUS 3.1 mg/dL (2.5-4.9)
[2022-04-08 08:06] LABS: BILIRUBIN,TOTAL 0.4 mg/dL (0.2-1); CREATININE 0.5 mg/dL (0.55-1.3); TOT PROT 5.8 g/dl (6.4-8.2)
[2022-04-08] MEDS: FUROSEMIDE 40 MG TABLET (FP) PO SCH (09:06)
[2022-04-08] MEDS: DULoxetine HCL 30 MG CAPSULE.DR PO SCH (09:06)
[2022-04-08] MEDS: MULTIVITAMINS (DAILY MVI) TABLET (FP) PO SCH (09:06)
[2022-04-08] MEDS: BUDESONIDE/FORMETEROL FUMARATE 160/4.5 mcg INHALER IH SCH ×2 (09:06→21:12)
[2022-04-08] MEDS: APIXABAN 5 MG TABLET PO SCH ×2 (09:06→21:11)
[2022-04-08] MEDS: AMINO ACIDS/PROTEIN HYDROLYS 30 ML LIQUID.PKT PO SCH (09:06)
[2022-04-08] MEDS: LOSARTAN POTASSIUM 50 MG TABLET PO SCH (09:07)
[2022-04-08] MEDS: LIDOCAINE 5% TOPICAL PATCH TP SCH (09:09)
[2022-04-08] MEDS: POLYETHYLENE GLYCOL (HEALTHYLAX) 3350 17 GM PACKET PO SCH (09:09)
[2022-04-08 20:14] VITALS: RESP 18
[2022-04-08] MEDS: MELATONIN 5 MG TABLETS PO PRN (21:11)
[2022-04-08] MEDS: ATORVASTATIN CA 10 MG TABLET (FP) PO SCH (21:11)
[2022-04-08] MEDS: LIDOCAINE PATCH REMOVAL MC SCH (21:12)
[2022-04-08] MEDS: CHLORHEXIDINE GLUCONATE 4% CLEANSER FOR DECOLONIZATION TP SCH (21:12)
[2022-04-09] MEDS: ACETAMINOPHEN 500 MG TABLET (FP) PO PRN ×2 (00:30→08:00)
[2022-04-09] MEDS: LEVOTHYROXINE NA 88 MCG TABLET (FP) PO SCH (06:00)
[2022-04-09 07:24] LABS: HEMATOCRIT 28.4 % (32.4-45.2); HEMOGLOBIN 9.6 GM/dL (10.7-15.3); MCH 32.1 pg (25.7-33.7); MCHC 33.9 g/dl (32.0-36.0); MEAN CELL VOLUME 94.7 fl (80-96); MEAN PLT VOLUME 9.8 fl (7.5-11.1); PLATELET COUNT 294 10^3/uL (134-434); RDW 13.6 % (11.6-15.6); WHITE BLOOD COUNT 6.1 K/mm3 (4.0-10.0)
[2022-04-09 07:55] LABS: ALBUMIN 2.6 g/dl (3.4-5.0); CALCIUM 9.5 mg/dL (8.5-10.1)
[2022-04-09 07:56] LABS: BLOOD UREA NITROGEN 16.4 mg/dL (7-18)
[2022-04-09 07:59] LABS: CREATININE 0.5 mg/dL (0.55-1.3)
[2022-04-09 08:00] LABS: BILIRUBIN,TOTAL 0.4 mg/dL (0.2-1); TOT PROT 5.9 g/dl (6.4-8.2)
[2022-04-09] MEDS: LIDOCAINE 5% TOPICAL PATCH TP SCH (09:10)
[2022-04-09] MEDS: FUROSEMIDE 40 MG TABLET (FP) PO SCH (09:11)
[2022-04-09] MEDS: AMINO ACIDS/PROTEIN HYDROLYS 30 ML LIQUID.PKT PO SCH (09:11)
[2022-04-09] MEDS: APIXABAN 5 MG TABLET PO SCH (09:11)
[2022-04-09] MEDS: POLYETHYLENE GLYCOL (HEALTHYLAX) 3350 17 GM PACKET PO SCH (09:11)
[2022-04-09] MEDS: LOSARTAN POTASSIUM 50 MG TABLET PO SCH (09:11)
[2022-04-09] MEDS: MULTIVITAMINS (DAILY MVI) TABLET (FP) PO SCH (09:12)
[2022-04-09] MEDS: BUDESONIDE/FORMETEROL FUMARATE 160/4.5 mcg INHALER IH SCH (09:12)
[2022-04-09] MEDS: DULoxetine HCL 30 MG CAPSULE.DR PO SCH (09:12)
[2022-04-09 13:13] VITALS: BP 120/45; PULSE 74
[2022-04-09 13:23] VITALS: TEMP 98.6
== END 2022-04-09 15:30 | DRG 871 ==
LOC: FER 17:00 → JICU 23:10 → J2W 03-30 08:07
PROVIDERS: ADMIT Internal Medicine Pulmonary Disease; ATTEND Internal Medicine
PROC: 05HC33Z Insertion of Infusion Device into Left Basilic Vein, Percutaneous Approach (ICD-10-PCS; principal; 2022-03-27)
DX: A40.9 Streptococcal sepsis, unspecified (principal); I21.A1 Myocardial infarction type 2; R65.21 Severe sepsis with septic shock; N39.0 Urinary tract infection, site not specified; N17.9 Acute kidney failure, unspecified; I82.401 Acute embolism and thrombosis of unspecified deep veins of right lower extremity; E87.1 Hypo-osmolality and hyponatremia; E87.20 Acidosis, unspecified; L03.115 Cellulitis of right lower limb; N12 Tubulo-interstitial nephritis, not specified as acute or chronic; E03.9 Hypothyroidism, unspecified; I73.9 Peripheral vascular disease, unspecified; I10 Essential (primary) hypertension; E78.5 Hyperlipidemia, unspecified; Z68.39 Body mass index [BMI] 39.0-39.9, adult; L89.152 Pressure ulcer of sacral region, stage 2; E66.9 Obesity, unspecified; D72.829 Elevated white blood cell count, unspecified
CPT/HCPCS: 0124A; 0241U-QW; 36415; 71045-TC-FY; 80048; 80053; 80076; 81003; 81015; 82550; 82553; 83605; 83735; 84100; 84439; 84443; 84481; 84484; 85025; 85027; 85610; 85730; 87040; 87086; 87186; 91312; 93005; 93306-TC; 93970-TC; 94640; 97161-GP; 99285-25; C9803-CS; G0480; J1644; U0003; U0005

== ENCOUNTER 2022-11-10 16:07 | Inpatient (IN) | payer OTHER ==
[2022-11-10] MEDS ORDERED: CEFEPIME HCL/D5W 1 GM/50 ML BAG IVPB ONE (16:19)
[2022-11-10] MEDS ORDERED: VANCOMYCIN 1,000 MG in DEXTROSE 5%-WATER - 250 ML IVPB ONE (16:19)
[2022-11-10] MEDS ORDERED: SODIUM CHLORIDE 0.9% 500 ML INFUS.BAG IV ONE (16:22)
[2022-11-10] MEDS ORDERED: ACYCLOVIR INJECTION 1,000 MG in DEXTROSE 5%-WATER - 100 ML IVPB ONE (16:38)
[2022-11-10] MEDS ORDERED: CEFEPIME 1 GM/100 ML BAG IVPB ONE (16:54)
[2022-11-10] MEDS ORDERED: VANCOMYCIN/WATER FOR INJ (PEG) 1,000 MG/200 ML BAG IVPB ONE (16:54)
[2022-11-10 17:04] LABS: VENOUS BASE EXCESS 1.3 mmol/L (-2-2); VENOUS O2 SATURATION 69.4 % (70-80); VENOUS PCO2 38.3 mmHg (38-52); VENOUS PH 7.438 (7.310-7.410)
[2022-11-10 17:08] LABS: HEMATOCRIT 28.6 % (32.4-45.2); HEMOGLOBIN 9.6 GM/dL (10.7-15.3); MCH 29.9 pg (25.7-33.7); MCHC 33.6 g/dl (32.0-36.0); MEAN CELL VOLUME 88.8 fl (80-96); MEAN PLT VOLUME 8.7 fl (7.5-11.1); PLATELET COUNT 229 10^3/uL (134-434); RBC 3.22 M/mm3 (3.60-5.2); RDW 14.1 % (11.6-15.6); WHITE BLOOD COUNT 17.6 K/mm3 (4.0-10.0)
[2022-11-10 17:11] LABS: INR 1.31 (0.83-1.09); PROTHROMBIN TIME (PATIENT) 15.2 SEC (9.7-13.0)
[2022-11-10 17:13] LABS: ACTIVATED PTT 32.6 SECONDS (25.2-36.5)
[2022-11-10] MEDS ORDERED: WATER IVPB ONE ×2 (17:23→18:30)
[2022-11-10] MEDS ORDERED: ACYCLOVIR IVPB ONE ×2 (17:23→18:30)
[2022-11-10] MEDS ORDERED: DEXTROSE 5% IVPB ONE ×2 (17:23→18:30)
[2022-11-10 17:48] LABS: ERYTHROCYTE SEDIMENTATION RATE 46 mm/hr (0-30)
[2022-11-10 17:50] LABS: ANISOCYTOSIS 1+; MACROCYTOSIS 0
[2022-11-10 17:51] LABS: POTASSIUM 4.1 mmol/L (3.5-5.1)
[2022-11-10 17:54] LABS: ALBUMIN 3.3 g/dl (3.4-5.0); BLOOD UREA NITROGEN 14.6 mg/dL (7-18)
[2022-11-10 17:57] LABS: CREATININE 0.7 mg/dL (0.55-1.3)
[2022-11-10 17:59] LABS: BILIRUBIN,TOTAL 0.4 mg/dL (0.2-1); TOT PROT 6.7 g/dl (6.4-8.2)
[2022-11-10 18:02] LABS: N-TERMINAL BNP 393.5 pg/ml (5-450)
[2022-11-10] MEDS ORDERED: ACETAMINOPHEN 1000 MG/100 ML BAG IVPB ONE (19:26)
[2022-11-10] MEDS ORDERED: ACETAMINOPHEN INJECTION 100 ML IVPB ONE (19:38)
[2022-11-10] MEDS: APIXABAN 2.5 MG TABLET PO SCH (21:49)
[2022-11-10] MEDS: ATORVASTATIN CA 10 MG TABLET (FP) PO SCH (21:49)
[2022-11-10] MEDS: PANTOPRAZOLE SODIUM 40 MG VIAL IVPUSH SCH (21:49)
[2022-11-10] MEDS: CHLORHEXIDINE GLUCONATE 4% CLEANSER FOR DECOLONIZATION TP SCH (21:50)
[2022-11-10] MEDS: MUPIROCIN 2% TOPICAL OINTMENT FOR DECOLONIZATION NS SCH (21:50)
[2022-11-11] MEDS: ACETAMINOPHEN 325 MG TABLET (FP) PO PRN ×5 (00:23→22:40)
[2022-11-11] MEDS ORDERED: ACYCLOVIR INJECTION 1,000 MG in DEXTROSE 5%-WATER - 250 ML IVPB SCH (02:30)
[2022-11-11] MEDS ORDERED: CEFEPIME 1 GM in DEXTROSE 5%-WATER 100 ML IVPB SCH (05:00)
[2022-11-11] MEDS ORDERED: FENTANYL NS IVPB 500 MCG/100 ML BAG IVPB SCH (06:45)
[2022-11-11 08:05] LABS: INR 1.38 (0.83-1.09); PROTHROMBIN TIME (PATIENT) 15.9 SEC (9.7-13.0)
[2022-11-11 08:08] LABS: ACTIVATED PTT 31.8 SECONDS (25.2-36.5)
[2022-11-11 08:12] LABS: BASO % 0.2 % (0-2.0); EOS % 0.3 % (0-4.5); HEMATOCRIT 27.6 % (32.4-45.2); HEMOGLOBIN 9.2 GM/dL (10.7-15.3); LYMPH % 3.4 % (8-40); MCH 30.1 pg (25.7-33.7); MCHC 33.4 g/dl (32.0-36.0); MEAN PLT VOLUME 9.5 fl (7.5-11.1); MONO % 7.8 % (3.8-10.2); NEUT % 88.3 % (42.8-82.8); PLATELET COUNT 213 10^3/uL (134-434); RBC 3.07 M/mm3 (3.60-5.2); RDW 13.6 % (11.6-15.6); WHITE BLOOD COUNT 9.7 K/mm3 (4.0-10.0)
[2022-11-11 08:34] LABS: CHLORIDE 99 mmol/L (98-107); POTASSIUM 3.6 mmol/L (3.5-5.1); SODIUM 131 mmol/L (136-145)
[2022-11-11 08:43] LABS: ANION GAP 5 MMOL/L (8-16); BLOOD UREA NITROGEN 14.5 mg/dL (7-18); CALCIUM 9.1 mg/dL (8.5-10.1); CO2 27 mmol/L (21-32); GLUCOSE,RANDOM 104 mg/dL (74-106)
[2022-11-11 08:46] LABS: CREATININE 0.6 mg/dL (0.55-1.3)
[2022-11-11] MEDS: ACYCLOVIR 800 MG TABLET PO SCH (09:41)
[2022-11-11] MEDS: MUPIROCIN 2% TOPICAL OINTMENT FOR DECOLONIZATION NS SCH ×2 (09:42→21:28)
[2022-11-11] MEDS: PANTOPRAZOLE SODIUM 40 MG VIAL IVPUSH SCH (09:42)
[2022-11-11] MEDS: APIXABAN 2.5 MG TABLET PO SCH ×2 (09:42→21:28)
[2022-11-11] MEDS: LOSARTAN POTASSIUM 25 MG TABLET PO SCH ×2 (09:42→10:16)
[2022-11-11] MEDS ORDERED: CEFEPIME HCL 1 GM VIAL (RESTRICTED TO ID) IVPB SCH (10:00)
[2022-11-11] MEDS ORDERED: VANCOMYCIN/WATER FOR INJ (PEG) 1,000 MG/200 ML BAG IVPB ONE (10:00)
[2022-11-11] MEDS ORDERED: CEFEPIME HCL 1 GM VIAL (RESTRICTED TO ID) IVPB ONE (10:00)
[2022-11-11] MEDS ORDERED: ACYCLOVIR 1000 MG (50MG/ML) VIAL IVPB SCH (13:15)
[2022-11-11] MEDS: ACYCLOVIR INJECTION 500 MG in SODIUM CHLORIDE 100 ML IVPB SCH (14:16)
[2022-11-11] MEDS: CEFEPIME 1 GM in DEXTROSE 5%-WATER 100 ML IVPB SCH (18:16)
[2022-11-11] MEDS: LEVOTHYROXINE NA 100 MCG TABLET (FP) PO SCH (20:08)
[2022-11-11] MEDS: ATORVASTATIN CA 10 MG TABLET (FP) PO SCH (21:28)
[2022-11-11] MEDS: CHLORHEXIDINE GLUCONATE 4% CLEANSER FOR DECOLONIZATION TP SCH (21:28)
[2022-11-11] MEDS: SILVER SULFADIAZINE 1% TOP CREAM 50 GM JAR TP SCH (21:37)
[2022-11-11] MEDS: VANCOMYCIN/WATER FOR INJ (PEG) 1,000 MG/200 ML BAG IVPB SCH (22:40)
[2022-11-12] MEDS: CEFEPIME 1 GM in DEXTROSE 5%-WATER 100 ML IVPB SCH ×3 (01:19→17:07)
[2022-11-12] MEDS: ACYCLOVIR INJECTION 500 MG in SODIUM CHLORIDE 100 ML IVPB SCH ×3 (02:42→17:07)
[2022-11-12] MEDS: ACETAMINOPHEN 325 MG TABLET (FP) PO PRN (04:00)
[2022-11-12] MEDS: LEVOTHYROXINE NA 100 MCG TABLET (FP) PO SCH (07:28)
[2022-11-12] MEDS: ACYCLOVIR 800 MG TABLET PO SCH (07:30)
[2022-11-12] MEDS: LOSARTAN POTASSIUM 25 MG TABLET PO SCH ×2 (07:30→09:46)
[2022-11-12 08:01] LABS: BASO % 0.5 % (0-2.0); EOS % 2.3 % (0-4.5); HEMATOCRIT 27.7 % (32.4-45.2); HEMOGLOBIN 9.1 GM/dL (10.7-15.3); LYMPH % 7.8 % (8-40); MCH 29.8 pg (25.7-33.7); MCHC 32.8 g/dl (32.0-36.0); MEAN CELL VOLUME 90.8 fl (80-96); MEAN PLT VOLUME 9.7 fl (7.5-11.1); MONO % 12.9 % (3.8-10.2); NEUT % 76.5 % (42.8-82.8); PLATELET COUNT 197 10^3/uL (134-434); RBC 3.05 M/mm3 (3.60-5.2); RDW 13.9 % (11.6-15.6); WHITE BLOOD COUNT 5.1 K/mm3 (4.0-10.0)
[2022-11-12 08:03] LABS: CALCIUM 8.8 mg/dL (8.5-10.1)
[2022-11-12 08:04] LABS: BLOOD UREA NITROGEN 14.9 mg/dL (7-18)
[2022-11-12 08:07] LABS: CREATININE 0.6 mg/dL (0.55-1.3)
[2022-11-12 09:15] LABS: PHOSPHOROUS 2.5 mg/dL (2.5-4.9)
[2022-11-12] MEDS: PANTOPRAZOLE SODIUM 40 MG VIAL IVPUSH SCH (09:47)
[2022-11-12] MEDS: APIXABAN 2.5 MG TABLET PO SCH ×2 (09:47→22:14)
[2022-11-12] MEDS: ACETAMINOPHEN 1000 MG/100 ML BAG IVPB PRN ×2 (09:47→22:37)
[2022-11-12] MEDS: MUPIROCIN 2% TOPICAL OINTMENT FOR DECOLONIZATION NS SCH ×2 (09:50→22:14)
[2022-11-12] MEDS: SILVER SULFADIAZINE 1% TOP CREAM 50 GM JAR TP SCH ×2 (12:08→22:15)
[2022-11-12] MEDS: VANCOMYCIN/WATER FOR INJ (PEG) 1,000 MG/200 ML BAG IVPB SCH ×2 (12:09→23:37)
[2022-11-12] MEDS ORDERED: ALBUTEROL SO4 HFA INHALER IH PRN (13:13)
[2022-11-12] MEDS: DULoxetine HCL 20 MG CAPSULE.DR PO SCH (13:41)
[2022-11-12] MEDS: BUDESONIDE/FORMETEROL FUMARATE 160/4.5 mcg INHALER IH SCH ×2 (14:54→22:15)
[2022-11-12] MEDS: AMINO ACIDS/PROTEIN HYDROLYS 30 ML LIQUID.PKT PO SCH (17:07)
[2022-11-12] MEDS: CLOTRIMAZOLE 10 MG TROCHE PO SCH ×2 (17:47→22:15)
[2022-11-12] MEDS: CHLORHEXIDINE GLUCONATE 4% CLEANSER FOR DECOLONIZATION TP SCH (22:14)
[2022-11-12] MEDS: ATORVASTATIN CA 10 MG TABLET (FP) PO SCH (22:14)
[2022-11-13] MEDS: CEFEPIME 1 GM in DEXTROSE 5%-WATER 100 ML IVPB SCH ×3 (03:03→17:48)
[2022-11-13] MEDS: ACYCLOVIR INJECTION 500 MG in SODIUM CHLORIDE 100 ML IVPB SCH ×3 (03:03→17:48)
[2022-11-13] MEDS: CLOTRIMAZOLE 10 MG TROCHE PO SCH ×5 (05:15→22:11)
[2022-11-13] MEDS: LEVOTHYROXINE NA 100 MCG TABLET (FP) PO SCH (06:02)
[2022-11-13] MEDS: AMINO ACIDS/PROTEIN HYDROLYS 30 ML LIQUID.PKT PO SCH ×2 (08:36→17:50)
[2022-11-13] MEDS: ACETAMINOPHEN 1000 MG/100 ML BAG IVPB PRN ×2 (09:45→18:29)
[2022-11-13] MEDS: LOSARTAN POTASSIUM 25 MG TABLET PO SCH (09:58)
[2022-11-13] MEDS: APIXABAN 2.5 MG TABLET PO SCH ×2 (09:59→21:16)
[2022-11-13] MEDS: PANTOPRAZOLE SODIUM 40 MG VIAL IVPUSH SCH (09:59)
[2022-11-13] MEDS: ZINC SULFATE 220 MG CAPSULE (FP) PO SCH (10:06)
[2022-11-13] MEDS: DULoxetine HCL 20 MG CAPSULE.DR PO SCH (10:06)
[2022-11-13] MEDS: ASCORBIC ACID 500 MG TABLET (FP) PO SCH (10:07)
[2022-11-13] MEDS: MUPIROCIN 2% TOPICAL OINTMENT FOR DECOLONIZATION NS SCH ×2 (10:08→21:17)
[2022-11-13] MEDS: SILVER SULFADIAZINE 1% TOP CREAM 50 GM JAR TP SCH ×2 (10:11→21:20)
[2022-11-13] MEDS: BUDESONIDE/FORMETEROL FUMARATE 160/4.5 mcg INHALER IH SCH ×2 (10:12→21:20)
[2022-11-13] MEDS: GABAPENTIN 100 MG CAPSULE PO SCH ×2 (14:13→21:16)
[2022-11-13] MEDS: VANCOMYCIN/WATER FOR INJ (PEG) 1,000 MG/200 ML BAG IVPB SCH ×2 (14:13→23:12)
[2022-11-13] MEDS: POLYETHYLENE GLYCOL (HEALTHYLAX) 3350 17 GM PACKET PO SCH (21:16)
[2022-11-13] MEDS: ATORVASTATIN CA 10 MG TABLET (FP) PO SCH (21:17)
[2022-11-13] MEDS: CHLORHEXIDINE GLUCONATE 4% CLEANSER FOR DECOLONIZATION TP SCH (21:18)
[2022-11-14] MEDS: ACETAMINOPHEN 1000 MG/100 ML BAG IVPB PRN ×2 (01:07→14:40)
[2022-11-14] MEDS: ACYCLOVIR INJECTION 500 MG in SODIUM CHLORIDE 100 ML IVPB SCH ×3 (01:08→17:46)
[2022-11-14] MEDS: CEFEPIME 1 GM in DEXTROSE 5%-WATER 100 ML IVPB SCH ×3 (01:08→17:47)
[2022-11-14] MEDS: LEVOTHYROXINE NA 100 MCG TABLET (FP) PO SCH (06:21)
[2022-11-14] MEDS: CLOTRIMAZOLE 10 MG TROCHE PO SCH ×5 (06:21→21:04)
[2022-11-14] MEDS: AMINO ACIDS/PROTEIN HYDROLYS 30 ML LIQUID.PKT PO SCH ×2 (07:46→17:46)
[2022-11-14] MEDS: ASCORBIC ACID 500 MG TABLET (FP) PO SCH (09:37)
[2022-11-14] MEDS: DULoxetine HCL 20 MG CAPSULE.DR PO SCH (09:37)
[2022-11-14] MEDS: PANTOPRAZOLE 40 MG TABLET PO SCH (09:38)
[2022-11-14] MEDS: GABAPENTIN 100 MG CAPSULE PO SCH ×3 (09:38→21:03)
[2022-11-14] MEDS: MUPIROCIN 2% TOPICAL OINTMENT FOR DECOLONIZATION NS SCH ×2 (09:38→21:30)
[2022-11-14] MEDS: ZINC SULFATE 220 MG CAPSULE (FP) PO SCH (09:38)
[2022-11-14] MEDS: APIXABAN 2.5 MG TABLET PO SCH ×2 (09:38→21:03)
[2022-11-14] MEDS: POLYETHYLENE GLYCOL (HEALTHYLAX) 3350 17 GM PACKET PO SCH ×2 (09:38→21:03)
[2022-11-14] MEDS: LOSARTAN POTASSIUM 25 MG TABLET PO SCH (09:38)
[2022-11-14] MEDS ORDERED: traMADol HCL 50 MG TABLET PO PRN (11:11)
[2022-11-14 11:30] LABS: BASO % 0.4 % (0-2.0); EOS % 7.2 % (0-4.5); HEMATOCRIT 28.3 % (32.4-45.2); HEMOGLOBIN 9.1 GM/dL (10.7-15.3); LYMPH % 11.3 % (8-40); MCH 29.8 pg (25.7-33.7); MCHC 32.3 g/dl (32.0-36.0); MEAN CELL VOLUME 92.4 fl (80-96); MEAN PLT VOLUME 9.5 fl (7.5-11.1); MONO % 11.4 % (3.8-10.2); NEUT % 69.7 % (42.8-82.8); PLATELET COUNT 216 10^3/uL (134-434); RBC 3.06 M/mm3 (3.60-5.2); RDW 14.2 % (11.6-15.6); WHITE BLOOD COUNT 3.6 K/mm3 (4.0-10.0)
[2022-11-14 11:56] LABS: POTASSIUM 4.3 mmol/L (3.5-5.1)
[2022-11-14 12:01] LABS: ALBUMIN 2.8 g/dl (3.4-5.0); CALCIUM 9.1 mg/dL (8.5-10.1)
[2022-11-14 12:02] LABS: BLOOD UREA NITROGEN 16.4 mg/dL (7-18)
[2022-11-14 12:06] LABS: BILIRUBIN,TOTAL 0.3 mg/dL (0.2-1); CREATININE 0.5 mg/dL (0.55-1.3); TOT PROT 6.4 g/dl (6.4-8.2)
[2022-11-14] MEDS: VANCOMYCIN/WATER FOR INJ (PEG) 1,000 MG/200 ML BAG IVPB SCH (12:06)
[2022-11-14] MEDS: BUDESONIDE/FORMETEROL FUMARATE 160/4.5 mcg INHALER IH SCH ×2 (12:06→21:18)
[2022-11-14 13:35] LABS: IRON SERUM 31 ug/dL (50-175); TOTAL IRON BINDING CAPACITY 212 ug/dL (250-450)
[2022-11-14] MEDS ORDERED: ACETAMINOPHEN INJECTION 100 ML IVPB ONE (14:30)
[2022-11-14] MEDS: SILVER SULFADIAZINE 1% TOP CREAM 50 GM JAR TP SCH ×2 (14:46→21:18)
[2022-11-14] MEDS ORDERED: IRON SUCROSE INJECTION 200 MG in SODIUM CHLORIDE 90 ML IVPB ONE (15:00)
[2022-11-14] MEDS: ATORVASTATIN CA 10 MG TABLET (FP) PO SCH (21:03)
[2022-11-14] MEDS: CHLORHEXIDINE GLUCONATE 4% CLEANSER FOR DECOLONIZATION TP SCH (21:04)
[2022-11-14] MEDS ORDERED: GABAPENTIN 100 MG CAPSULE PO SCH (22:00)
[2022-11-15] MEDS: CEFEPIME 1 GM in DEXTROSE 5%-WATER 100 ML IVPB SCH ×3 (01:07→18:45)
[2022-11-15] MEDS: ACETAMINOPHEN 1000 MG/100 ML BAG IVPB PRN ×3 (01:11→20:02)
[2022-11-15] MEDS ORDERED: ACYCLOVIR INJECTION 500 MG in SODIUM CHLORIDE 100 ML IVPB SCH ×2 (02:08→02:15)
[2022-11-15] MEDS: GABAPENTIN 100 MG CAPSULE PO SCH ×3 (06:33→21:44)
[2022-11-15] MEDS: LEVOTHYROXINE NA 100 MCG TABLET (FP) PO SCH (06:34)
[2022-11-15] MEDS: CLOTRIMAZOLE 10 MG TROCHE PO SCH ×5 (06:34→21:38)
[2022-11-15] MEDS ORDERED: BISACODYL 5 MG TABLET.DR (FP) PO ONE (08:30)
[2022-11-15] MEDS ORDERED: IRON SUCROSE INJECTION 200 MG in SODIUM CHLORIDE 90 ML IVPB ONE (09:00)
[2022-11-15] MEDS: ASCORBIC ACID 500 MG TABLET (FP) PO SCH (09:46)
[2022-11-15] MEDS: POLYETHYLENE GLYCOL (HEALTHYLAX) 3350 17 GM PACKET PO SCH ×2 (09:47→21:44)
[2022-11-15] MEDS: DULoxetine HCL 20 MG CAPSULE.DR PO SCH (09:47)
[2022-11-15] MEDS: PANTOPRAZOLE 40 MG TABLET PO SCH (09:47)
[2022-11-15] MEDS: APIXABAN 2.5 MG TABLET PO SCH ×2 (09:47→21:44)
[2022-11-15] MEDS: LOSARTAN POTASSIUM 25 MG TABLET PO SCH (09:47)
[2022-11-15] MEDS: FUROSEMIDE 40 MG TABLET (FP) PO SCH (09:47)
[2022-11-15 09:52] LABS: BASO % 0.6 % (0-2.0); EOS % 6.5 % (0-4.5); HEMATOCRIT 29.3 % (32.4-45.2); HEMOGLOBIN 9.4 GM/dL (10.7-15.3); LYMPH % 9.6 % (8-40); MCH 29.2 pg (25.7-33.7); MCHC 32.1 g/dl (32.0-36.0); MEAN PLT VOLUME 9.4 fl (7.5-11.1); MONO % 9.6 % (3.8-10.2); NEUT % 73.7 % (42.8-82.8); PLATELET COUNT 229 10^3/uL (134-434); RBC 3.22 M/mm3 (3.60-5.2); RDW 13.9 % (11.6-15.6); WHITE BLOOD COUNT 3.9 K/mm3 (4.0-10.0)
[2022-11-15] MEDS: ZINC SULFATE 220 MG CAPSULE (FP) PO SCH (09:54)
[2022-11-15] MEDS: AMINO ACIDS/PROTEIN HYDROLYS 30 ML LIQUID.PKT PO SCH ×2 (09:55→18:45)
[2022-11-15] MEDS: ACYCLOVIR INJECTION 500 MG in DEXTROSE 5%-WATER - 100 ML IVPB SCH ×2 (10:14→18:46)
[2022-11-15] MEDS: SILVER SULFADIAZINE 1% TOP CREAM 50 GM JAR TP SCH ×2 (10:35→21:40)
[2022-11-15] MEDS: MUPIROCIN 2% TOPICAL OINTMENT FOR DECOLONIZATION NS SCH (10:35)
[2022-11-15] MEDS: BUDESONIDE/FORMETEROL FUMARATE 160/4.5 mcg INHALER IH SCH ×2 (10:35→21:40)
[2022-11-15] MEDS ORDERED: LOSARTAN POTASSIUM 50 MG TABLET PO SCH (13:31)
[2022-11-15 14:11] VITALS: BMI 40.1
[2022-11-15 18:08] LABS: FREE KAPPA,SERUM 48.6 mg/L (3.3-19.4)
[2022-11-15] MEDS: CHLORHEXIDINE GLUCONATE 4% CLEANSER FOR DECOLONIZATION TP SCH (21:40)
[2022-11-15] MEDS: ATORVASTATIN CA 10 MG TABLET (FP) PO SCH (21:44)
[2022-11-15] MEDS ORDERED: ACETAMINOPHEN 1000 MG/100 ML BAG IVPB SCH (22:00)
[2022-11-16] MEDS: ACYCLOVIR INJECTION 500 MG in DEXTROSE 5%-WATER - 100 ML IVPB SCH (01:36)
[2022-11-16] MEDS: CEFEPIME 1 GM in DEXTROSE 5%-WATER 100 ML IVPB SCH ×2 (01:37→09:08)
[2022-11-16] MEDS: ACETAMINOPHEN 1000 MG/100 ML BAG IVPB PRN ×2 (05:01→11:11)
[2022-11-16] MEDS: GABAPENTIN 100 MG CAPSULE PO SCH ×2 (06:22→13:56)
[2022-11-16] MEDS: CLOTRIMAZOLE 10 MG TROCHE PO SCH ×4 (06:22→17:13)
[2022-11-16] MEDS: LEVOTHYROXINE NA 100 MCG TABLET (FP) PO SCH (06:22)
[2022-11-16] MEDS ORDERED: IRON SUCROSE INJECTION 200 MG in SODIUM CHLORIDE 100 ML IVPB ONE (09:00)
[2022-11-16] MEDS: DULoxetine HCL 20 MG CAPSULE.DR PO SCH (09:08)
[2022-11-16] MEDS: ASCORBIC ACID 500 MG TABLET (FP) PO SCH (09:08)
[2022-11-16] MEDS: PANTOPRAZOLE 40 MG TABLET PO SCH (09:08)
[2022-11-16] MEDS: ZINC SULFATE 220 MG CAPSULE (FP) PO SCH (09:08)
[2022-11-16] MEDS: AMINO ACIDS/PROTEIN HYDROLYS 30 ML LIQUID.PKT PO SCH ×2 (09:08→17:13)
[2022-11-16] MEDS: POLYETHYLENE GLYCOL (HEALTHYLAX) 3350 17 GM PACKET PO SCH (09:08)
[2022-11-16] MEDS: APIXABAN 2.5 MG TABLET PO SCH (09:08)
[2022-11-16] MEDS: SILVER SULFADIAZINE 1% TOP CREAM 50 GM JAR TP SCH (09:09)
[2022-11-16] MEDS: BUDESONIDE/FORMETEROL FUMARATE 160/4.5 mcg INHALER IH SCH (09:09)
[2022-11-16] MEDS: FUROSEMIDE 40 MG TABLET (FP) PO SCH (09:09)
[2022-11-16] MEDS ORDERED: ACYCLOVIR 800 MG TABLET PO SCH (10:00)
[2022-11-16 16:08] VITALS: BP 125/54; PULSE 72; RESP 18; TEMP 98.4
[2022-11-16] MEDS ORDERED: valACYclovir HCL 500 MG TABLET (FP) PO SCH (22:00)
== END 2022-11-16 18:53 | DRG 871 ==
LOC: JER 16:07 → JERBED 16:37 → JICU 18:50 → J2W 11-12 23:34
PROVIDERS: ADMIT Internal Medicine Pulmonary Disease; ATTEND Internal Medicine Pulmonary Disease
DX: A41.89 Other specified sepsis (principal); G93.41 Metabolic encephalopathy; B02.7 Disseminated zoster; I50.32 Chronic diastolic (congestive) heart failure; N39.0 Urinary tract infection, site not specified; Z68.41 Body mass index [BMI] 40.0-44.9, adult; L97.818 Non-pressure chronic ulcer of other part of right lower leg with other specified severity; I24.8 Other forms of acute ischemic heart disease; I82.4Z1 Acute embolism and thrombosis of unspecified deep veins of right distal lower extremity; L03.116 Cellulitis of left lower limb; R00.1 Bradycardia, unspecified; D72.829 Elevated white blood cell count, unspecified; E78.5 Hyperlipidemia, unspecified; I10 Essential (primary) hypertension; F41.8 Other specified anxiety disorders; E03.9 Hypothyroidism, unspecified; J44.9 Chronic obstructive pulmonary disease, unspecified; I11.0 Hypertensive heart disease with heart failure; B96.4 Proteus (mirabilis) (morganii) as the cause of diseases classified elsewhere; E66.01 Morbid (severe) obesity due to excess calories; M54.30 Sciatica, unspecified side; M24.59 Contracture, other specified joint; D64.9 Anemia, unspecified; K59.00 Constipation, unspecified; Z88.0 Allergy status to penicillin
CPT/HCPCS: 0241U-QW; 36415; 71045-TC-FY; 73590-TC-LT-FY; 76775-TC; 80048; 80053; 82550; 82553; 82728; 82784; 82803; 83540; 83550; 83605; 83735; 83880; 83883; 84100; 84155; 84165; 84439; 84443; 84484; 85025; 85045; 85610; 85651; 85730; 86140; 86850; 86900; 86901; 87040; 87070; 87086; 87186; 93005; 93010; 97162-GP; 99285-25; G0480; J1756

== ENCOUNTER 2024-03-29 01:37 | Inpatient (IN) | payer OTHER ==
[2024-03-29] MEDS ORDERED: ACETAMINOPHEN INJECTION 100 ML ONE (02:11)
[2024-03-29] MEDS: ALBUTEROL SO4 2.5/IPRATROPIUM 0.5 INH SOL 3 ML VIAL.NEB. NEB SCH (02:15)
[2024-03-29] MEDS ORDERED: CEFTRIAXONE 1 G/50 ML PREMIX 50 ML IVPB ONE (02:35)
[2024-03-29] MEDS ORDERED: KETOROLAC TROMETHAMINE 15 MG/ML VIAL ONE (02:35)
[2024-03-29 02:39] LABS: VENOUS BASE EXCESS -1.8 mmol/L (-2-2); VENOUS O2 SATURATION 35.5 % (70-80); VENOUS PCO2 49.3 mmHg (38-52); VENOUS PH 7.322 (7.310-7.410)
[2024-03-29 02:44] LABS: INR 1.12 (0.83-1.09); PROTHROMBIN TIME (PATIENT) 12.8 SEC (9.7-13.0)
[2024-03-29] MEDS: CEFTRIAXONE 1,000 MG in DEXTROSE 5%-WATER - 50 ML IVPB ONE (02:45)
[2024-03-29 02:47] LABS: ACTIVATED PTT 26.1 SECONDS (25.2-36.5)
[2024-03-29 03:01] LABS: HEMATOCRIT 40.3 % (32.4-45.2); HEMOGLOBIN 13.4 GM/dL (10.7-15.3); MCH 31.8 pg (25.7-33.7); MCHC 33.1 g/dl (32.0-36.0); MEAN PLT VOLUME 8.3 fl (7.5-11.1); PLATELET COUNT 156 10^3/uL (134-434)
[2024-03-29 03:05] LABS: POTASSIUM 4.9 mmol/L (3.5-5.1)
[2024-03-29 03:06] LABS: ALBUMIN 3.8 g/dl (3.4-5.0); BLOOD UREA NITROGEN 29.6 mg/dL (7-18); CALCIUM 10.4 mg/dL (8.5-10.1)
[2024-03-29 03:09] LABS: WHITE BLOOD COUNT 1.2 K/mm3 (4.0-10.0)
[2024-03-29 03:10] LABS: CREATININE 1.1 mg/dL (0.55-1.3)
[2024-03-29 03:12] LABS: BILIRUBIN,TOTAL 0.9 mg/dL (0.2-1); TOT PROT 7.4 g/dl (6.4-8.2)
[2024-03-29] MEDS: SODIUM CHLORIDE 0.9% 500 ML INFUS.BAG IV ONE ×2 (03:18→04:23)
[2024-03-29 03:39] LABS: LACTIC ACID 2.4 mmol/L (0.4-2.0)
[2024-03-29 05:11] LABS: ANISOCYTOSIS 1+; MACROCYTOSIS 0; OVALOCYTE 1+
[2024-03-29] MEDS ORDERED: ALBUTEROL SO4 HFA INHALER IH PRN (05:20)
[2024-03-29] MEDS: VANCOMYCIN/WATER FOR INJ (PEG) 1,000 MG/200 ML BAG IVPB ONE (06:02)
[2024-03-29] MEDS: LEVOTHYROXINE NA 100 MCG TABLET (FP) PO SCH (06:02)
[2024-03-29] MEDS: ACETAMINOPHEN 1000 MG/100 ML BAG IVPB PRN (06:16)
[2024-03-29] MEDS: PANTOPRAZOLE 40 MG TABLET PO SCH (06:39)
[2024-03-29 07:39] LABS: HEMATOCRIT 34.8 % (32.4-45.2); HEMOGLOBIN 11.5 GM/dL (10.7-15.3); MCH 31.7 pg (25.7-33.7); MCHC 32.9 g/dl (32.0-36.0); MEAN CELL VOLUME 96.3 fl (80-96); MEAN PLT VOLUME 8.6 fl (7.5-11.1); PLATELET COUNT 129 10^3/uL (134-434); RBC 3.62 M/mm3 (3.60-5.2); WHITE BLOOD COUNT 5.4 K/mm3 (4.0-10.0)
[2024-03-29 07:48] LABS: CHLORIDE 106 mmol/L (98-107); POTASSIUM 3.8 mmol/L (3.5-5.1); SODIUM 139 mmol/L (136-145)
[2024-03-29 07:49] LABS: GLUCOSE,RANDOM 117 mg/dL (74-106)
[2024-03-29 07:50] LABS: CALCIUM 9.4 mg/dL (8.5-10.1)
[2024-03-29 07:51] LABS: ALBUMIN 3.1 g/dl (3.4-5.0); ANION GAP 8 mmol/L (4-13); BLOOD UREA NITROGEN 33.6 mg/dL (7-18); CO2 25 mmol/L (21-32); MAGNESIUM 1.7 mg/dL (1.8-2.4)
[2024-03-29 07:54] LABS: CREATININE 1.2 mg/dL (0.55-1.3); LACTIC ACID 4.6 mmol/L (0.4-2.0); PHOSPHOROUS 1.3 mg/dL (2.5-4.9); SGOT/AST 30 U/L (15-37); SGPT/ALT 28 U/L (13-61)
[2024-03-29 07:55] LABS: BILIRUBIN,TOTAL 0.4 mg/dL (0.2-1); TOT PROT 5.9 g/dl (6.4-8.2)
[2024-03-29 07:55] LABS: URINE APPEARANCE CLOUDY; URINE COLOR YELLOW
[2024-03-29 07:56] LABS: ALK PHOS 77 U/L (45-117)
[2024-03-29 07:56] LABS: PH,URINE 7.5 (5.0-8.0); URINE BILIRUBIN NEGATIVE (NEGATIVE); URINE GLUCOSE (UA) NEGATIVE (NEGATIVE); URINE KETONE NEGATIVE (NEGATIVE); URINE NITRITE NEGATIVE (NEGATIVE); URINE PROTEIN 1+ (NEGATIVE); URINE UROBILINOGEN 0.2 mg/dL (0.2-1.0)
[2024-03-29 08:00] LABS: URINE LEUK ESTERASE NEGATIVE (NEGATIVE)
[2024-03-29] MEDS: MAGNESIUM 1GM/D5W - 1 GM/100 ML IVPB IVPB ONE (08:39)
[2024-03-29 09:16] LABS: URINE RBC 7.8 /uL (0-23.9); URINE WBC 408.2 /uL (0-25.8)
[2024-03-29 09:17] LABS: EPI CELLS 4.7 /uL (0-25.1); HYALINE CASTS 444.98 /uL (0-3.1); URINE BACTERIA 53036.8 /uL (0-1359)
[2024-03-29 09:27] LABS: ANISOCYTOSIS 0; MACROCYTOSIS 0
[2024-03-29] MEDS ORDERED: ENOXAPARIN NA (PORCINE) 40 MG/0.4 ML DISP.SYRIN SQ SCH (10:00)
[2024-03-29] MEDS: APIXABAN 2.5 MG TABLET PO SCH ×2 (10:25→21:25)
[2024-03-29] MEDS: CEFTRIAXONE 2 GM-D5W BAG 2 GM/50 ML BAG IVPB SCH (10:25)
[2024-03-29] MEDS: POTASSIUM PHOSPHATE 30 MM in SODIUM CHLORIDE 250 ML IVPB ONE (10:25)
[2024-03-29] MEDS: CITALOPRAM HYDROBROMIDE 10 MG TABLET PO SCH (10:31)
[2024-03-29] MEDS: MUPIROCIN 2% TOPICAL OINTMENT FOR DECOLONIZATION NS SCH (10:32)
[2024-03-29] MEDS: LACTATED RINGERS SOLUTION 1,000 ML/1,000 ML INFUS.BAG IV SCH ×2 (12:09→13:34)
[2024-03-29] MEDS: MEROPENEM-0.9% SODIUM CHLORIDE 1 GM/50 ML BAG IVPB SCH (13:33)
[2024-03-29] MEDS: METHYL SALICYLATE/MENTHOL 30 GM TUBE TP SCH (14:58)
[2024-03-29] MEDS: ATORVASTATIN CA 10 MG TABLET (FP) PO SCH (21:25)
[2024-03-29] MEDS: CHLORHEXIDINE GLUCONATE 4% CLEANSER FOR DECOLONIZATION TP SCH (21:25)
[2024-03-29] MEDS: MELATONIN 5 MG TABLETS PO ONE (21:25)
[2024-03-29] MEDS: levETIRAcetam XR 750 MG TAB PO SCH (21:27)
[2024-03-29] MEDS ORDERED: ATORVASTATIN CA 10 MG TABLET (FP) PO SCH (22:00)
[2024-03-30] MEDS: LEVOTHYROXINE NA 100 MCG TABLET (FP) PO SCH (06:05)
[2024-03-30 07:04] LABS: BASO % 0.3 % (0-2.0); HEMATOCRIT 32.3 % (32.4-45.2); HEMOGLOBIN 10.7 GM/dL (10.7-15.3); LYMPH % 2.1 % (8-40); MCH 31.7 pg (25.7-33.7); MCHC 33.1 g/dl (32.0-36.0); MEAN CELL VOLUME 95.9 fl (80-96); MEAN PLT VOLUME 8.6 fl (7.5-11.1); MONO % 7.5 % (3.8-10.2); NEUT % 89.1 % (42.8-82.8); PLATELET COUNT 115 10^3/uL (134-434); RBC 3.37 M/mm3 (3.60-5.2)
[2024-03-30 07:15] LABS: POTASSIUM 4.6 mmol/L (3.5-5.1)
[2024-03-30 07:17] LABS: CALCIUM 9.1 mg/dL (8.5-10.1)
[2024-03-30 07:18] LABS: ALBUMIN 2.9 g/dl (3.4-5.0); MAGNESIUM 1.7 mg/dL (1.8-2.4)
[2024-03-30 07:21] LABS: CREATININE 0.8 mg/dL (0.55-1.3); PHOSPHOROUS 3.1 mg/dL (2.5-4.9)
[2024-03-30 07:22] LABS: BILIRUBIN,TOTAL 0.4 mg/dL (0.2-1); TOT PROT 5.8 g/dl (6.4-8.2)
[2024-03-30] MEDS: MAGNESIUM 2GM/50ML STERILE WATER IVPB IVPB ONE (07:53)
[2024-03-30 08:17] LABS: INR 1.44 (0.83-1.09); PROTHROMBIN TIME (PATIENT) 16.4 SEC (9.7-13.0)
[2024-03-30 08:19] LABS: ACTIVATED PTT 37.1 SECONDS (25.2-36.5)
[2024-03-30] MEDS ORDERED: PATIENT'S OWN MEDICATION (NON-FORMULARY) (Omeprazole 20 MG Capsule.Dr) PO SCH (10:00)
[2024-03-30] MEDS: ZINC SULFATE 220 MG CAPSULE (FP) PO SCH (10:25)
[2024-03-30] MEDS: LIDOCAINE 5% TOPICAL PATCH TP SCH (11:03)
[2024-03-30] MEDS: CITALOPRAM HYDROBROMIDE 10 MG TABLET PO SCH (11:03)
[2024-03-30] MEDS: MULTIVITAMINS (DAILY MVI) TABLET (FP) PO SCH (11:03)
[2024-03-30] MEDS: ACETAMINOPHEN 1000 MG/100 ML BAG IVPB PRN (11:03)
[2024-03-30] MEDS: LIDOCAINE PATCH REMOVAL MC SCH (21:36)
[2024-03-31 07:33] LABS: HEMATOCRIT 29.2 % (32.4-45.2); HEMOGLOBIN 10.1 GM/dL (10.7-15.3); MCH 32.9 pg (25.7-33.7); MCHC 34.7 g/dl (32.0-36.0); MEAN CELL VOLUME 94.7 fl (80-96); MEAN PLT VOLUME 9.1 fl (7.5-11.1); PLATELET COUNT 98 10^3/uL (134-434); RBC 3.08 M/mm3 (3.60-5.2); WHITE BLOOD COUNT 5.6 K/mm3 (4.0-10.0)
[2024-03-31 07:54] LABS: POTASSIUM 4.4 mmol/L (3.5-5.1)
[2024-03-31 07:59] LABS: CALCIUM 9.1 mg/dL (8.5-10.1)
[2024-03-31 08:00] LABS: ALBUMIN 2.5 g/dl (3.4-5.0); BLOOD UREA NITROGEN 21.1 mg/dL (7-18); MAGNESIUM 2.2 mg/dL (1.8-2.4)
[2024-03-31 08:03] LABS: BILIRUBIN,TOTAL 0.3 mg/dL (0.2-1); CREATININE 0.7 mg/dL (0.55-1.3); PHOSPHOROUS 2.7 mg/dL (2.5-4.9)
[2024-03-31 08:04] LABS: TOT PROT 5.4 g/dl (6.4-8.2)
[2024-03-31 12:34] VITALS: BMI 37.3
[2024-03-31] MEDS ORDERED: ACETAMINOPHEN INJECTION 100 ML ONE (13:58)
[2024-03-31] MEDS: ACETAMINOPHEN 1000 MG/100 ML BAG IVPB PRN (14:00)
[2024-03-31] MEDS: levETIRAcetam 500 MG/5 ML ORAL SOLUTION (UNIT-DOSE CUPS) PO SCH ×2 (14:00→21:43)
[2024-03-31] MEDS ORDERED: ALBUTEROL SO4 HFA INHALER IH PRN (16:53)
[2024-03-31] MEDS ORDERED: CEFAZOLIN 1 GM/D5W 1 GM/50 ML BAG IVPB SCH (18:00)
[2024-03-31] MEDS: CEFAZOLIN 1 GM/D5W 1 GM/50 ML BAG IVPB SCH (18:44)
[2024-03-31] MEDS: APIXABAN 2.5 MG TABLET PO SCH (21:43)
[2024-03-31] MEDS: ATORVASTATIN CA 10 MG TABLET (FP) PO SCH (21:44)
[2024-03-31] MEDS ORDERED: CHLORHEXIDINE GLUCONATE 4% CLEANSER FOR DECOLONIZATION TP SCH (22:00)
[2024-03-31] MEDS ORDERED: MUPIROCIN 2% TOPICAL OINTMENT FOR DECOLONIZATION NS SCH (22:00)
[2024-03-31] MEDS: LIDOCAINE PATCH REMOVAL MC SCH (22:09)
[2024-03-31] MEDS: METHYL SALICYLATE/MENTHOL 30 GM TUBE TP SCH (22:30)
[2024-04-01] MEDS: LEVOTHYROXINE NA 100 MCG TABLET (FP) PO SCH (06:42)
[2024-04-01] MEDS: LIDOCAINE 5% TOPICAL PATCH TP SCH (09:45)
[2024-04-01] MEDS: MULTIVITAMINS (DAILY MVI) TABLET (FP) PO SCH (09:46)
[2024-04-01] MEDS: CITALOPRAM HYDROBROMIDE 20 MG TABLET PO SCH (09:47)
[2024-04-01] MEDS: CHOLECALCIFEROL (VIT D3) 1,000 UNIT (25 MCG) TABLET PO SCH (09:47)
[2024-04-01] MEDS: FAMOTIDINE 20 MG TABLET PO SCH (09:47)
[2024-04-01] MEDS: SENNOSIDES 8.6MG TABLET (FP) PO SCH (09:48)
[2024-04-01] MEDS ORDERED: CITALOPRAM HYDROBROMIDE 20 MG TABLET PO SCH (10:00)
[2024-04-01] MEDS ORDERED: SENNOSIDES 8.6MG TABLET (FP) PO SCH (10:00)
[2024-04-01] MEDS ORDERED: CHOLECALCIFEROL (VIT D3) 1,000 UNIT (25 MCG) TABLET PO SCH (10:00)
[2024-04-01] MEDS ORDERED: FAMOTIDINE 20 MG TABLET PO SCH (10:00)
[2024-04-01] MEDS: ZINC SULFATE 220 MG CAPSULE (FP) PO SCH (10:20)
[2024-04-01] MEDS: levETIRAcetam 500 MG TABLET (FP) PO SCH (12:04)
[2024-04-01] MEDS: ACETAMINOPHEN 325 MG TABLET (FP) PO PRN (16:15)
[2024-04-01] MEDS: oxyCODONE HCL 5 MG TABLET PO ONE (17:39)
[2024-04-02 11:00] LABS: BASO % 0.4 % (0-2.0); EOS % 2.6 % (0-4.5); HEMATOCRIT 31.9 % (32.4-45.2); HEMOGLOBIN 10.7 GM/dL (10.7-15.3); LYMPH % 6.7 % (8-40); MCH 31.8 pg (25.7-33.7); MCHC 33.6 g/dl (32.0-36.0); MEAN CELL VOLUME 94.6 fl (80-96); MEAN PLT VOLUME 8.7 fl (7.5-11.1); NEUT % 77.3 % (42.8-82.8); PLATELET COUNT 120 10^3/uL (134-434); RBC 3.37 M/mm3 (3.60-5.2); RDW 13.7 % (11.6-15.6); WHITE BLOOD COUNT 4.1 K/mm3 (4.0-10.0)
[2024-04-02 11:08] LABS: POTASSIUM 3.8 mmol/L (3.5-5.1)
[2024-04-02 11:10] LABS: CALCIUM 9.4 mg/dL (8.5-10.1)
[2024-04-02 11:11] LABS: ALBUMIN 2.7 g/dl (3.4-5.0); BLOOD UREA NITROGEN 7.9 mg/dL (7-18)
[2024-04-02 11:14] LABS: CREATININE 0.5 mg/dL (0.55-1.3)
[2024-04-02 11:16] LABS: BILIRUBIN,TOTAL 0.4 mg/dL (0.2-1)
[2024-04-02 11:17] LABS: TOT PROT 5.8 g/dl (6.4-8.2)
[2024-04-03] MEDS: LOSARTAN POTASSIUM 50 MG TABLET PO SCH ×2 (09:59→21:51)
[2024-04-03] MEDS: ATORVASTATIN CA 40 MG TABLET (FP) PO SCH (21:51)
[2024-04-03] MEDS: MELATONIN 5 MG TABLETS PO PRN (21:51)
[2024-04-04 08:19] LABS: HEMATOCRIT 33.2 % (32.4-45.2); HEMOGLOBIN 11.2 GM/dL (10.7-15.3); MCH 31.9 pg (25.7-33.7); MCHC 33.7 g/dl (32.0-36.0); MEAN CELL VOLUME 94.7 fl (80-96); MEAN PLT VOLUME 8.5 fl (7.5-11.1); PLATELET COUNT 174 10^3/uL (134-434); RDW 13.9 % (11.6-15.6)
[2024-04-04 08:24] LABS: POTASSIUM 3.7 mmol/L (3.5-5.1)
[2024-04-04 08:43] LABS: CALCIUM 9.5 mg/dL (8.5-10.1)
[2024-04-04 08:44] LABS: BLOOD UREA NITROGEN 7.8 mg/dL (7-18); MAGNESIUM 1.8 mg/dL (1.8-2.4)
[2024-04-04 08:47] LABS: CREATININE 0.4 mg/dL (0.55-1.3)
[2024-04-05] MEDS: CEFAZOLIN 1 GM in DEXTROSE 5%-WATER - 50 ML IVPB ONE (19:33)
[2024-04-06 13:34] VITALS: BP 179/66; PULSE 66; RESP 17; TEMP 97.7
== END 2024-04-06 12:22 | DRG 872 ==
LOC: JER 01:37 → JERBED 04:12 → JICU 05:08 → J4W 03-31 16:37
PROVIDERS: ADMIT Family Medicine; ATTEND Family Medicine
DX: A41.9 Sepsis, unspecified organism (principal); I50.32 Chronic diastolic (congestive) heart failure; N12 Tubulo-interstitial nephritis, not specified as acute or chronic; N17.9 Acute kidney failure, unspecified; E87.20 Acidosis, unspecified; N39.0 Urinary tract infection, site not specified; I24.89 Other forms of acute ischemic heart disease; E03.9 Hypothyroidism, unspecified; I11.0 Hypertensive heart disease with heart failure; J43.9 Emphysema, unspecified; J45.909 Unspecified asthma, uncomplicated; E66.9 Obesity, unspecified; Z68.37 Body mass index [BMI] 37.0-37.9, adult; E78.5 Hyperlipidemia, unspecified; G40.909 Epilepsy, unspecified, not intractable, without status epilepticus; D69.6 Thrombocytopenia, unspecified; E83.42 Hypomagnesemia; B96.4 Proteus (mirabilis) (morganii) as the cause of diseases classified elsewhere; F41.8 Other specified anxiety disorders
CPT/HCPCS: 0241U-QW; 36415; 71045-TC-FY; 76700-TC; 80048; 80053; 81003; 82550; 82607; 82746; 82803; 82962; 83036; 83605; 83735; 84100; 84436; 84443; 84479; 84484; 85025; 85027; 85610; 85730; 86850; 86900; 86901; 87040; 87086; 87186; 87481; 87899; 93005; 93010; 93306-TC; 93922; 93926-TC; 97116-GP; 97162-GP; 99285-25; J0131

== ENCOUNTER 2024-05-14 17:23 | Inpatient (IN) | payer OTHER ==
[2024-05-14] MEDS ORDERED: ACETAMINOPHEN 1000 MG/100 ML BAG IVPB ONE (18:04)
[2024-05-14 18:26] LABS: VENOUS O2 SATURATION 83.5 % (70-80); VENOUS PCO2 30.7 mmHg (38-52); VENOUS PH 7.421 (7.310-7.410)
[2024-05-14 18:30] LABS: HEMATOCRIT 33.1 % (32.4-45.2); HEMOGLOBIN 11.1 GM/dL (10.7-15.3); MCH 31.9 pg (25.7-33.7); MCHC 33.4 g/dl (32.0-36.0); MEAN CELL VOLUME 95.6 fl (80-96); MEAN PLT VOLUME 8.4 fl (7.5-11.1); PLATELET COUNT 154 10^3/uL (134-434); RBC 3.47 M/mm3 (3.60-5.2); RDW 13.6 % (11.6-15.6); WHITE BLOOD COUNT 8.7 K/mm3 (4.0-10.0)
[2024-05-14 18:37] LABS: INR 1.45 (0.83-1.09); PROTHROMBIN TIME (PATIENT) 15.9 SEC (9.7-13.0)
[2024-05-14 18:40] LABS: ACTIVATED PTT 31.3 SECONDS (25.2-36.5)
[2024-05-14] MEDS ORDERED: ACETAMINOPHEN INJECTION 100 ML ONE (18:44)
[2024-05-14] MEDS ORDERED: KETOROLAC TROMETHAMINE 30 MG/1 ML VIAL ONE (18:44)
[2024-05-14] MEDS ORDERED: CEFTRIAXONE 1 G/50 ML PREMIX 50 ML IVPB ONE (18:45)
[2024-05-14] MEDS: KETOROLAC TROMETHAMINE 30 MG/1 ML VIAL IVPUSH ONE (18:51)
[2024-05-14] MEDS: LACTATED RINGERS SOLUTION 1000 ML INFUS.BAG IV ONE (18:51)
[2024-05-14] MEDS: CEFTRIAXONE 1 GM in DEXTROSE 5%-WATER - 100 ML IVPB ONE (18:52)
[2024-05-14 18:55] LABS: POTASSIUM 3.5 mmol/L (3.5-5.1)
[2024-05-14 18:56] LABS: CALCIUM 9.5 mg/dL (8.5-10.1)
[2024-05-14 18:57] LABS: ALBUMIN 3.4 g/dl (3.4-5.0); BLOOD UREA NITROGEN 23.6 mg/dL (7-18); MAGNESIUM 1.5 mg/dL (1.8-2.4)
[2024-05-14 19:00] LABS: CREATININE 0.8 mg/dL (0.55-1.3)
[2024-05-14 19:02] LABS: BILIRUBIN,TOTAL 0.9 mg/dL (0.2-1); TOT PROT 6.6 g/dl (6.4-8.2)
[2024-05-14 19:09] LABS: EPI CELLS 3 /uL (0-25.1); HYALINE CASTS 1 /uL (0-3.1); URINE APPEARANCE CLEAR; URINE BACTERIA 146 /uL (0-1359); URINE BILIRUBIN NEGATIVE (NEGATIVE); URINE COLOR YELLOW; URINE GLUCOSE (UA) NEGATIVE (NEGATIVE); URINE KETONE TRACE (NEGATIVE); URINE LEUK ESTERASE TRACE (NEGATIVE); URINE NITRITE NEGATIVE (NEGATIVE); URINE PROTEIN 1+ (NEGATIVE); URINE RBC 16 /uL (0-23.9); URINE UROBILINOGEN 0.2 mg/dL (0.2-1.0); URINE WBC 193 /uL (0-25.8)
[2024-05-14] MEDS ORDERED: LIDOCAINE 4% PATCH TP ONE ×2 (19:13→19:16)
[2024-05-14] MEDS: LIDOCAINE 4% PATCH TP ONE (19:18)
[2024-05-14 19:41] LABS: ANISOCYTOSIS 0; HELMET CELLS 0; HOWELL-JOLLY BODIES 0; MACROCYTOSIS 0; OVALOCYTE 0; ROULEAU 0; SICKELED CELLS 0; TARGET CELLS 0; TEAR DROP CELLS 0; TOXIC GRANULATION 0
[2024-05-14] MEDS: MAGNESIUM SULFATE IN WATER 2 GM/50 ML IVPB IVPB ONE (21:19)
[2024-05-14] MEDS: ZINC OXIDE 20% TOPICAL OINTMENT 30 GM TUBE TP SCH (22:00)
[2024-05-14] MEDS ORDERED: VANCOMYCIN 1,000 MG in DEXTROSE 5%-WATER - 250 ML IVPB SCH (22:00)
[2024-05-14] MEDS: MUPIROCIN 2% TOPICAL OINTMENT FOR DECOLONIZATION NS SCH (22:19)
[2024-05-14] MEDS: ATORVASTATIN CA 10 MG TABLET (FP) PO SCH (22:22)
[2024-05-14] MEDS: levETIRAcetam 250 MG TABLET PO SCH (22:22)
[2024-05-14] MEDS: APIXABAN 2.5 MG TABLET PO SCH (22:22)
[2024-05-14] MEDS: MELATONIN 5 MG TABLETS PO PRN (22:22)
[2024-05-14] MEDS: CHLORHEXIDINE GLUCONATE 4% CLEANSER FOR DECOLONIZATION TP SCH (22:22)
[2024-05-14] MEDS: FAMOTIDINE 20 MG/50 ML IVPB 20 MG/50 ML MG IVPB SCH (22:22)
[2024-05-14] MEDS: SENNOSIDES 8.6MG TABLET (FP) PO SCH (22:22)
[2024-05-14] MEDS: VANCOMYCIN 1 GM PREMIX (F) 1 GM/200 ML BAG IVPB SCH (22:23)
[2024-05-15] MEDS: LACTATED RINGERS SOLUTION 1000 ML INFUS.BAG IV ONE (00:40)
[2024-05-15] MEDS: LIDOCAINE PATCH REMOVAL MC SCH ×2 (06:37→21:14)
[2024-05-15] MEDS: ACETAMINOPHEN 325 MG TABLET (FP) PO ONE (06:37)
[2024-05-15] MEDS: LEVOTHYROXINE NA 100 MCG TABLET (FP) PO SCH (06:38)
[2024-05-15] MEDS: LIDOCAINE 4% PATCH TP SCH (06:53)
[2024-05-15 07:07] LABS: BASO % 0.4 % (0-2.0); EOS % 0.6 % (0-4.5); HEMOGLOBIN 10.3 GM/dL (10.7-15.3); LYMPH % 5.2 % (8-40); MCH 32.1 pg (25.7-33.7); MCHC 33.3 g/dl (32.0-36.0); MEAN CELL VOLUME 96.3 fl (80-96); MEAN PLT VOLUME 8.2 fl (7.5-11.1); MONO % 9.9 % (3.8-10.2); NEUT % 83.9 % (42.8-82.8); PLATELET COUNT 151 10^3/uL (134-434); RBC 3.21 M/mm3 (3.60-5.2); RDW 13.7 % (11.6-15.6); WHITE BLOOD COUNT 6.4 K/mm3 (4.0-10.0)
[2024-05-15 07:20] LABS: POTASSIUM 3.6 mmol/L (3.5-5.1)
[2024-05-15 07:22] LABS: ALBUMIN 3.1 g/dl (3.4-5.0); CALCIUM 9.4 mg/dL (8.5-10.1)
[2024-05-15 07:23] LABS: MAGNESIUM 2.3 mg/dL (1.8-2.4)
[2024-05-15 07:27] LABS: BILIRUBIN,TOTAL 0.5 mg/dL (0.2-1)
[2024-05-15] MEDS: ACETAMINOPHEN 1000 MG/100 ML BAG IVPB PRN (09:03)
[2024-05-15] MEDS: CITALOPRAM HYDROBROMIDE 20 MG TABLET PO SCH (09:27)
[2024-05-15] MEDS: CEFTRIAXONE 1 G/50 ML PREMIX 50 ML IVPB SCH (10:41)
[2024-05-15] MEDS ORDERED: VITAMINS A AND D TOPICAL OINTMENT TP SCH (18:00)
[2024-05-15] MEDS: ACETAMINOPHEN 325 MG TABLET (FP) PO PRN (21:15)
[2024-05-15] MEDS: VANCOMYCIN 1 GM PREMIX (F) 1 GM/200 ML BAG IVPB SCH (21:15)
[2024-05-16] MEDS ORDERED: ACETAMINOPHEN INJECTION 100 ML ONE (02:26)
[2024-05-16] MEDS: ACETAMINOPHEN 1000 MG/100 ML BAG IVPB ONE (02:50)
[2024-05-16] MEDS: VITAMINS A AND D TOPICAL OINTMENT TP PRN (03:37)
[2024-05-16 08:01] LABS: HEMATOCRIT 29.4 % (32.4-45.2); HEMOGLOBIN 10.1 GM/dL (10.7-15.3); MCH 32.6 pg (25.7-33.7); MCHC 34.2 g/dl (32.0-36.0); MEAN CELL VOLUME 95.2 fl (80-96); MEAN PLT VOLUME 8.4 fl (7.5-11.1); PLATELET COUNT 139 10^3/uL (134-434); RBC 3.09 M/mm3 (3.60-5.2); WHITE BLOOD COUNT 3.8 K/mm3 (4.0-10.0)
[2024-05-16 08:30] LABS: POTASSIUM 3.7 mmol/L (3.5-5.1)
[2024-05-16 08:32] LABS: ALBUMIN 2.9 g/dl (3.4-5.0); BLOOD UREA NITROGEN 16.8 mg/dL (7-18); CALCIUM 9.8 mg/dL (8.5-10.1); MAGNESIUM 2.3 mg/dL (1.8-2.4)
[2024-05-16 08:35] LABS: CREATININE 0.7 mg/dL (0.55-1.3)
[2024-05-16 08:36] LABS: PHOSPHOROUS 2.9 mg/dL (2.5-4.9)
[2024-05-16 08:37] LABS: BILIRUBIN,TOTAL 0.3 mg/dL (0.2-1); TOT PROT 5.8 g/dl (6.4-8.2)
[2024-05-16] MEDS: CEFTRIAXONE 2 GM-D5W BAG 2 GM/50 ML BAG IVPB SCH (09:51)
[2024-05-16] MEDS: PANTOPRAZOLE 40 MG TABLET PO SCH (18:49)
[2024-05-16] MEDS: LOSARTAN POTASSIUM 50 MG TABLET PO SCH (21:21)
[2024-05-17] MEDS: ERTAPENEM SODIUM 1 GM in SODIUM CHLORIDE 50 ML IVPB SCH (12:30)
[2024-05-17 12:35] LABS: BASO % 0.5 % (0-2.0); EOS % 6.6 % (0-4.5); HEMATOCRIT 30.5 % (32.4-45.2); HEMOGLOBIN 10.2 GM/dL (10.7-15.3); LYMPH % 8.1 % (8-40); MCHC 33.5 g/dl (32.0-36.0); MEAN CELL VOLUME 95.6 fl (80-96); MEAN PLT VOLUME 7.9 fl (7.5-11.1); MONO % 15.5 % (3.8-10.2); NEUT % 69.3 % (42.8-82.8); PLATELET COUNT 168 10^3/uL (134-434); RBC 3.19 M/mm3 (3.60-5.2); RDW 13.5 % (11.6-15.6); WHITE BLOOD COUNT 3.7 K/mm3 (4.0-10.0)
[2024-05-17 12:55] LABS: POTASSIUM 3.8 mmol/L (3.5-5.1)
[2024-05-17 12:57] LABS: CALCIUM 9.1 mg/dL (8.5-10.1)
[2024-05-17 12:58] LABS: ALBUMIN 2.9 g/dl (3.4-5.0); BLOOD UREA NITROGEN 12.4 mg/dL (7-18)
[2024-05-17 13:00] LABS: CREATININE 0.6 mg/dL (0.55-1.3)
[2024-05-17 13:02] LABS: BILIRUBIN,TOTAL 0.4 mg/dL (0.2-1)
[2024-05-18 13:06] LABS: BASO % 0.5 % (0-2.0); EOS % 4.9 % (0-4.5); HEMATOCRIT 30.7 % (32.4-45.2); HEMOGLOBIN 10.3 GM/dL (10.7-15.3); LYMPH % 8.9 % (8-40); MCH 32.1 pg (25.7-33.7); MCHC 33.6 g/dl (32.0-36.0); MEAN CELL VOLUME 95.5 fl (80-96); MEAN PLT VOLUME 8.4 fl (7.5-11.1); MONO % 13.9 % (3.8-10.2); NEUT % 71.8 % (42.8-82.8); PLATELET COUNT 172 10^3/uL (134-434); RBC 3.22 M/mm3 (3.60-5.2); RDW 13.3 % (11.6-15.6); WHITE BLOOD COUNT 3.2 K/mm3 (4.0-10.0)
[2024-05-18 13:27] LABS: POTASSIUM 4.2 mmol/L (3.5-5.1)
[2024-05-18 13:29] LABS: BLOOD UREA NITROGEN 8.9 mg/dL (7-18); CALCIUM 9.6 mg/dL (8.5-10.1)
[2024-05-18 13:33] LABS: CREATININE 0.5 mg/dL (0.55-1.3)
[2024-05-18 13:34] LABS: BILIRUBIN,TOTAL 0.5 mg/dL (0.2-1); TOT PROT 6.1 g/dl (6.4-8.2)
[2024-05-18] MEDS: levETIRAcetam 500 MG TABLET (FP) PO SCH (21:16)
[2024-05-19] MEDS: POLYETHYLENE GLYCOL (HEALTHYLAX) 3350 17 GM PACKET PO SCH (05:37)
[2024-05-19 11:23] LABS: BASO % 0.6 % (0-2.0); EOS % 4.1 % (0-4.5); HEMATOCRIT 29.7 % (32.4-45.2); HEMOGLOBIN 10.1 GM/dL (10.7-15.3); MCH 32.5 pg (25.7-33.7); MCHC 34.1 g/dl (32.0-36.0); MEAN CELL VOLUME 95.3 fl (80-96); MEAN PLT VOLUME 8.2 fl (7.5-11.1); MONO % 12.4 % (3.8-10.2); NEUT % 74.9 % (42.8-82.8); PLATELET COUNT 161 10^3/uL (134-434); RBC 3.12 M/mm3 (3.60-5.2); RDW 13.2 % (11.6-15.6); WHITE BLOOD COUNT 3.2 K/mm3 (4.0-10.0)
[2024-05-19 13:02] VITALS: RESP 14
[2024-05-19 15:47] VITALS: BMI 35.7
[2024-05-19] MEDS ORDERED: AMINO ACIDS/PROTEIN HYDROLYS 30 ML LIQUID.PKT PO SCH (17:30)
[2024-05-19 17:58] VITALS: BP 163/85; PULSE 64; TEMP 98.3
== END 2024-05-19 16:40 | DRG 871 ==
LOC: JER 17:23 → JERBED 18:03 → JICU 20:03
PROVIDERS: ADMIT Family Medicine; ATTEND Family Medicine
DX: A41.9 Sepsis, unspecified organism (principal); G93.41 Metabolic encephalopathy; N39.0 Urinary tract infection, site not specified; E78.5 Hyperlipidemia, unspecified; E03.9 Hypothyroidism, unspecified; I10 Essential (primary) hypertension; L89.610 Pressure ulcer of right heel, unstageable
CPT/HCPCS: 0241U-QW; 36415; 71045-TC-FY; 73560-TC-RT-FY; 80053; 80177; 81003; 82607; 82728; 82803; 83036; 83540; 83550; 83605; 83735; 84100; 84436; 84443; 84484; 85025; 85027; 85610; 85730; 86850; 86900; 86901; 87040; 87086; 87186; 87481; 93005; 93010; 97161-GP; 99291; J0131

== ENCOUNTER 2024-08-09 01:52 | Inpatient (IN) | payer OTHER ==
[2024-08-09 02:56] LABS: ABSOLUTE IMMATURE GRANULOCYTES 0.01 x10^3/uL (0.0-0.031); BASOPHILS # 0.03 x10^3/uL (0.01-0.08); EOSINOPHILS # 0.09 x10^3/uL (0.04-0.36); HEMATOCRIT 35.6 % (34.1-44.9); HEMOGLOBIN 11.2 g/dL (11.2-15.7); MCHC 31.5 g/dl (32.2-35.5); MEAN CELL VOLUME 99.2 fl (79.4-94.8); MEAN PLT VOLUME 10.9 fl (9.4-12.3); MONOCYTE # 0.64 x10^3/uL (0.24-0.86); PLATELET COUNT 183 x10^3/uL (182-369); RDW 12.8 % (12.4-16.6)
[2024-08-09] MEDS ORDERED: LIDOCAINE VISCOUS 2% ORAL/TOP 15 ML UNIT-DOSE CUP ONE (02:59)
[2024-08-09 03:05] LABS: POTASSIUM 4.2 mmol/L (3.5-5.1)
[2024-08-09 03:07] LABS: ALBUMIN 3.9 g/dl (3.4-5.0); BLOOD UREA NITROGEN 19.4 mg/dL (7-18); CALCIUM 10.4 mg/dL (8.5-10.1)
[2024-08-09 03:10] LABS: CREATININE 0.5 mg/dL (0.55-1.3)
[2024-08-09 03:12] LABS: BILIRUBIN,TOTAL 0.5 mg/dL (0.2-1); INR 1.05 (0.83-1.09); PROTHROMBIN TIME (PATIENT) 11.5 SEC (9.7-13.0); TOT PROT 7.1 g/dl (6.4-8.2)
[2024-08-09 03:15] LABS: ACTIVATED PTT 32.4 SECONDS (25.2-36.5)
[2024-08-09] MEDS: LIDOCAINE VISCOUS 2% ORAL/TOP 15 ML UNIT-DOSE CUP MM ONE (03:17)
[2024-08-09 03:21] LABS: URINE APPEARANCE CLEAR; URINE BILIRUBIN NEGATIVE (NEGATIVE); URINE COLOR YELLOW; URINE GLUCOSE (UA) NEGATIVE (NEGATIVE); URINE KETONE NEGATIVE (NEGATIVE); URINE LEUK ESTERASE 3+ (NEGATIVE); URINE NITRITE NEGATIVE (NEGATIVE); URINE PROTEIN NEGATIVE (NEGATIVE); URINE UROBILINOGEN 0.2 mg/dL (0.2-1.0)
[2024-08-09] MEDS ORDERED: MEROPENEM 1 GM VIAL (RESTRICTED TO ID) IVPB ONE (03:50)
[2024-08-09] MEDS ORDERED: DEXTROSE 5%-WATER 100 ML IVPB ONE (03:52)
[2024-08-09] MEDS: MEROPENEM 1 GM in DEXTROSE 5%-WATER 100 ML IVPB ONE (03:54)
[2024-08-09] MEDS ORDERED: ALBUTEROL SO4 2.5/IPRATROPIUM 0.5 INH SOL 3 ML VIAL.NEB. NEB PRN (06:52)
[2024-08-09] MEDS: ACETAMINOPHEN 1000 MG/100 ML BAG IVPB ONE ×2 (07:00→13:52)
[2024-08-09 07:01] LABS: EPI CELLS 6.4 /uL (0-25.1); URINE BACTERIA 925.2 /uL (0-1359); URINE RBC 5.5 /uL (0-23.9); URINE WBC 16.2 /uL (0-25.8)
[2024-08-09] MEDS: APIXABAN 2.5 MG TABLET PO SCH (11:14)
[2024-08-09] MEDS: levETIRAcetam 500 MG TABLET (FP) PO SCH (11:14)
[2024-08-09] MEDS: LOSARTAN POTASSIUM 50 MG TABLET PO SCH (11:14)
[2024-08-09] MEDS: VITAMINS A AND D TOPICAL OINTMENT TP SCH (12:03)
[2024-08-09] MEDS: levETIRAcetam 500 MG/5 ML ORAL SOLUTION (UNIT-DOSE CUPS) PO SCH (13:53)
[2024-08-09] MEDS: LACTATED RINGERS SOLUTION 1,000 ML/1,000 ML INFUS.BAG IV SCH (16:09)
[2024-08-09] MEDS: VANCOMYCIN/WATER 1250 MG 1,250 MG/250 ML BAG IVPB SCH (16:19)
[2024-08-09] MEDS: MEROPENEM 1 GM in DEXTROSE 5%-WATER 100 ML IVPB SCH (18:30)
[2024-08-09] MEDS: ACETAMINOPHEN 325 MG TABLET (FP) PO PRN (21:07)
[2024-08-10 07:55] LABS: HEMATOCRIT 31.7 % (34.1-44.9); HEMOGLOBIN 10.1 g/dL (11.2-15.7); MCHC 31.9 g/dl (32.2-35.5); MEAN CELL VOLUME 99.4 fl (79.4-94.8); MEAN PLT VOLUME 11.2 fl (9.4-12.3); PLATELET COUNT 147 x10^3/uL (182-369)
[2024-08-10 08:13] LABS: POTASSIUM 4.1 mmol/L (3.5-5.1)
[2024-08-10 08:16] LABS: CALCIUM 9.6 mg/dL (8.5-10.1)
[2024-08-10 08:17] LABS: BLOOD UREA NITROGEN 16.6 mg/dL (7-18); MAGNESIUM 1.7 mg/dL (1.8-2.4)
[2024-08-10 08:20] LABS: CREATININE 0.6 mg/dL (0.55-1.3); PHOSPHOROUS 2.6 mg/dL (2.5-4.9)
[2024-08-10 08:22] LABS: BILIRUBIN,TOTAL 0.5 mg/dL (0.2-1); TOT PROT 5.7 g/dl (6.4-8.2)
[2024-08-10] MEDS: MAGNESIUM 1GM/D5W 100ML - 100 ML IVPB IVPB ONE (08:58)
[2024-08-10] MEDS: MUPIROCIN 2% TOPICAL OINTMENT FOR DECOLONIZATION NS SCH (09:05)
[2024-08-10] MEDS ORDERED: MAGNESIUM SULF 50% (8.12 MEQ/2 ML-1 GM VIAL) IVPB ONE (10:00)
[2024-08-10] MEDS ORDERED: ALBUTEROL SO4 2.5/IPRATROPIUM 0.5 INH SOL 3 ML VIAL.NEB. NEB PRN (11:37)
[2024-08-10] MEDS: VANCOMYCIN/WATER 1250 MG 1,250 MG/250 ML BAG IVPB SCH ×2 (11:41→15:09)
[2024-08-10 11:42] LABS: CALCIUM 9.9 mg/dL (8.5-10.1)
[2024-08-10 11:43] LABS: ALBUMIN 3.2 g/dl (3.4-5.0); BLOOD UREA NITROGEN 16.9 mg/dL (7-18)
[2024-08-10 11:46] LABS: CREATININE 0.6 mg/dL (0.55-1.3)
[2024-08-10 11:48] LABS: BILIRUBIN,TOTAL 0.6 mg/dL (0.2-1); TOT PROT 5.8 g/dl (6.4-8.2)
[2024-08-10] MEDS: MAGNESIUM SULF 50% (8.12 MEQ/2 ML-1 GM VIAL) IVPB ONE (12:04)
[2024-08-10] MEDS: VITAMINS A AND D TOPICAL OINTMENT TP SCH (12:04)
[2024-08-10] MEDS ORDERED: VANCOMYCIN/WATER 1250 MG 1,250 MG/250 ML BAG IVPB SCH (15:45)
[2024-08-10] MEDS: MEROPENEM 1 GM in DEXTROSE 5%-WATER 100 ML IVPB SCH (17:06)
[2024-08-10] MEDS: ACETAMINOPHEN 325 MG TABLET (FP) PO PRN (17:06)
[2024-08-10] MEDS: MELATONIN 5 MG TABLETS PO PRN (21:57)
[2024-08-10] MEDS: levETIRAcetam 500 MG/5 ML ORAL SOLUTION (UNIT-DOSE CUPS) PO SCH (21:57)
[2024-08-10] MEDS: ATORVASTATIN CA 10 MG TABLET (FP) PO SCH (21:58)
[2024-08-10] MEDS: METHYL SALICYLATE/MENTHOL 30 GM TUBE TP SCH (21:58)
[2024-08-10] MEDS: APIXABAN 2.5 MG TABLET PO SCH (21:58)
[2024-08-10] MEDS: LOSARTAN POTASSIUM 50 MG TABLET PO SCH (21:58)
[2024-08-10] MEDS: CHLORHEXIDINE GLUCONATE 4% CLEANSER FOR DECOLONIZATION TP SCH (21:58)
[2024-08-10] MEDS ORDERED: APIXABAN 2.5 MG TABLET PO SCH (22:00)
[2024-08-10] MEDS ORDERED: levETIRAcetam 500 MG/5 ML ORAL SOLUTION (UNIT-DOSE CUPS) PO SCH (22:00)
[2024-08-11] MEDS: MEROPENEM 1 GM in DEXTROSE 5%-WATER 100 ML IVPB SCH (01:56)
[2024-08-11] MEDS: LEVOTHYROXINE NA 100 MCG TABLET (FP) PO SCH (06:06)
[2024-08-11] MEDS: FAMOTIDINE 20 MG TABLET PO SCH (09:48)
[2024-08-11] MEDS: CITALOPRAM HYDROBROMIDE 20 MG TABLET PO SCH (09:48)
[2024-08-11] MEDS: SENNOSIDES 8.6MG TABLET (FP) PO SCH (09:49)
[2024-08-11 14:11] VITALS: BMI 32.9
[2024-08-11] MEDS: VANCOMYCIN HCL IN 5 % DEXTROSE 1,250 MG/250 ML BAG IV SCH (15:56)
[2024-08-12 10:59] LABS: HEMOGLOBIN 10.4 g/dL (11.2-15.7); MEAN CELL VOLUME 97.9 fl (79.4-94.8); MEAN PLT VOLUME 10.8 fl (9.4-12.3); RDW 12.3 % (12.4-16.6)
[2024-08-12 11:01] LABS: HEMATOCRIT 32.2 % (34.1-44.9); MCHC 32.3 g/dl (32.2-35.5); PLATELET COUNT 135 x10^3/uL (182-369)
[2024-08-12 11:34] LABS: POTASSIUM 4.2 mmol/L (3.5-5.1)
[2024-08-12 11:42] LABS: ALBUMIN 3.1 g/dl (3.4-5.0); BLOOD UREA NITROGEN 8.5 mg/dL (7-18); CALCIUM 10.1 mg/dL (8.5-10.1)
[2024-08-12 11:45] LABS: CREATININE 0.4 mg/dL (0.55-1.3)
[2024-08-12 11:47] LABS: BILIRUBIN,TOTAL 0.4 mg/dL (0.2-1); TOT PROT 6.1 g/dl (6.4-8.2)
[2024-08-12] MEDS ORDERED: ALBUTEROL SO4 2.5/IPRATROPIUM 0.5 INH SOL 3 ML VIAL.NEB. NEB PRN (12:25)
[2024-08-12] MEDS ORDERED: MELATONIN 5 MG TABLETS PO PRN (12:25)
[2024-08-12] MEDS: VANCOMYCIN HCL IN 5 % DEXTROSE 1,250 MG/250 ML BAG IV SCH (16:35)
[2024-08-12] MEDS: ACETAMINOPHEN 325 MG TABLET (FP) PO PRN (16:36)
[2024-08-12] MEDS: VITAMINS A AND D TOPICAL OINTMENT TP SCH (17:05)
[2024-08-12] MEDS: MEROPENEM 1 GM in DEXTROSE 5%-WATER 100 ML IVPB SCH (17:05)
[2024-08-12] MEDS: ATORVASTATIN CA 10 MG TABLET (FP) PO SCH (21:39)
[2024-08-12] MEDS: levETIRAcetam 500 MG/5 ML ORAL SOLUTION (UNIT-DOSE CUPS) PO SCH (21:39)
[2024-08-12] MEDS: APIXABAN 2.5 MG TABLET PO SCH (21:39)
[2024-08-12] MEDS: LOSARTAN POTASSIUM 50 MG TABLET PO SCH (21:39)
[2024-08-12] MEDS: METHYL SALICYLATE/MENTHOL 30 GM TUBE TP SCH (21:40)
[2024-08-12] MEDS: MUPIROCIN 2% TOPICAL OINTMENT FOR DECOLONIZATION NS SCH (21:40)
[2024-08-12] MEDS: CHLORHEXIDINE GLUCONATE 4% CLEANSER FOR DECOLONIZATION TP SCH (22:34)
[2024-08-13] MEDS: LEVOTHYROXINE NA 100 MCG TABLET (FP) PO SCH (06:26)
[2024-08-13] MEDS: FAMOTIDINE 20 MG TABLET PO SCH (10:14)
[2024-08-13] MEDS: CITALOPRAM HYDROBROMIDE 20 MG TABLET PO SCH (10:14)
[2024-08-13] MEDS: SENNOSIDES 8.6MG TABLET (FP) PO SCH (10:14)
[2024-08-13 10:55] VITALS: RESP 20; TEMP 97.7
[2024-08-13] MEDS: CEFTRIAXONE 2 GM-D5W BAG 2 GM/50 ML BAG IVPB SCH (11:03)
[2024-08-13 14:05] VITALS: BP 139/70
[2024-08-13 14:37] VITALS: PULSE 64
== END 2024-08-13 14:00 | DRG 871 ==
LOC: JER 01:52 → JERBED 03:31 → J4W 04:41 → JICU 08-10 08:31 → J2W 08-11 21:57
PROVIDERS: ADMIT Family Medicine; ATTEND Family Medicine
PROC: 02HV33Z Insertion of Infusion Device into Superior Vena Cava, Percutaneous Approach (ICD-10-PCS; principal; 2024-08-13)
PROC: B518ZZA Fluoroscopy of Superior Vena Cava, Guidance (ICD-10-PCS; 2024-08-13)
DX: R78.81 Bacteremia (principal); G93.41 Metabolic encephalopathy; N39.0 Urinary tract infection, site not specified; I50.32 Chronic diastolic (congestive) heart failure; L03.116 Cellulitis of left lower limb; I11.0 Hypertensive heart disease with heart failure; G40.909 Epilepsy, unspecified, not intractable, without status epilepticus; E78.5 Hyperlipidemia, unspecified; R13.10 Dysphagia, unspecified; E83.52 Hypercalcemia; J44.9 Chronic obstructive pulmonary disease, unspecified; E03.9 Hypothyroidism, unspecified; R09.89 Other specified symptoms and signs involving the circulatory and respiratory systems; G89.29 Other chronic pain; M54.30 Sciatica, unspecified side; K59.00 Constipation, unspecified; F41.8 Other specified anxiety disorders; Z86.718 Personal history of other venous thrombosis and embolism
CPT/HCPCS: 0241U-QW; 36415; 36569; 70486-TC; 71045-TC-FY; 80048; 80053; 80177; 81003; 82550; 82553; 82962; 83605; 83735; 84100; 84484; 85025; 85027; 85610; 85730; 87040; 87077; 87086; 87186; 87481; 93005; 93010; 93306-TC; 99285-25; J0131

== ENCOUNTER 2024-08-16 03:15 | Inpatient (IN) | payer OTHER ==
[2024-08-16 03:35] VITALS: BMI 32.5
[2024-08-16 05:33] LABS: VENOUS BASE EXCESS -1.8 mmol/L (-2-2); VENOUS O2 SATURATION 39.5 % (70-80); VENOUS PCO2 67.5 mmHg (38-52); VENOUS PH 7.22 (7.310-7.410)
[2024-08-16 05:39] LABS: INR 1.12 (0.83-1.09); PROTHROMBIN TIME (PATIENT) 12.2 SEC (9.7-13.0)
[2024-08-16 05:41] LABS: ACTIVATED PTT 37.1 SECONDS (25.2-36.5)
[2024-08-16 05:49] LABS: POTASSIUM 3.7 mmol/L (3.5-5.1)
[2024-08-16 05:50] LABS: CALCIUM 10.2 mg/dL (8.5-10.1)
[2024-08-16 05:51] LABS: ALBUMIN 3.6 g/dl (3.4-5.0); MAGNESIUM 1.8 mg/dL (1.8-2.4)
[2024-08-16 05:54] LABS: CREATININE 0.5 mg/dL (0.55-1.3)
[2024-08-16 05:55] LABS: BILIRUBIN,TOTAL 0.5 mg/dL (0.2-1)
[2024-08-16 05:56] LABS: TOT PROT 6.8 g/dl (6.4-8.2)
[2024-08-16 06:05] LABS: PH,URINE 6.5 (5.0-8.0); URINE APPEARANCE CLEAR; URINE BILIRUBIN NEGATIVE (NEGATIVE); URINE COLOR YELLOW; URINE GLUCOSE (UA) NEGATIVE (NEGATIVE); URINE KETONE NEGATIVE (NEGATIVE); URINE LEUK ESTERASE NEGATIVE (NEGATIVE); URINE NITRITE NEGATIVE (NEGATIVE); URINE PROTEIN NEGATIVE (NEGATIVE); URINE UROBILINOGEN 0.2 mg/dL (0.2-1.0)
[2024-08-16 06:32] LABS: ABSOLUTE IMMATURE GRANULOCYTES 0.02 x10^3/uL (0.0-0.031); BASOPHILS # 0.02 x10^3/uL (0.01-0.08); EOSINOPHIL % 3.8 % (0.7-5.8); EOSINOPHILS # 0.18 x10^3/uL (0.04-0.36); HEMATOCRIT 34.1 % (34.1-44.9); HEMOGLOBIN 10.9 g/dL (11.2-15.7); MEAN CELL VOLUME 96.9 fl (79.4-94.8); MEAN PLT VOLUME 11.4 fl (9.4-12.3); MONOCYTE # 0.54 x10^3/uL (0.24-0.86); MONOCYTE % 11.3 % (4.7-12.5); PLATELET COUNT 151 x10^3/uL (182-369); RDW 12.4 % (12.4-16.6)
[2024-08-16] MEDS ORDERED: CEFTRIAXONE SODIUM 1 GM IV SCH (10:00)
[2024-08-16] MEDS: APIXABAN 2.5 MG TABLET PO SCH (11:14)
[2024-08-16] MEDS: levETIRAcetam 500 MG/5 ML ORAL SOLUTION (UNIT-DOSE CUPS) PO SCH (11:14)
[2024-08-16] MEDS: FAMOTIDINE 20 MG TABLET PO SCH (11:14)
[2024-08-16] MEDS: CITALOPRAM HYDROBROMIDE 20 MG TABLET PO SCH (11:14)
[2024-08-16] MEDS: METHYL SALICYLATE/MENTHOL 30 GM TUBE TP SCH (11:15)
[2024-08-16] MEDS: LOSARTAN POTASSIUM 50 MG TABLET PO SCH (11:15)
[2024-08-16] MEDS: LEVOTHYROXINE NA 100 MCG TABLET (FP) PO SCH (11:15)
[2024-08-16] MEDS: VITAMINS A AND D TOPICAL OINTMENT TP SCH (11:16)
[2024-08-16] MEDS: ALBUTEROL SO4 2.5/IPRATROPIUM 0.5 INH SOL 3 ML VIAL.NEB. NEB SCH (11:56)
[2024-08-16 12:23] LABS: N-TERMINAL BNP 294.1 pg/ml (5-450)
[2024-08-16 14:38] LABS: VENOUS BASE EXCESS 3.4 mmol/L (-2-2); VENOUS O2 SATURATION 58.8 % (70-80); VENOUS PCO2 51.4 mmHg (38-52); VENOUS PH 7.376 (7.310-7.410)
[2024-08-16] MEDS: CEFTRIAXONE 2 GM-D5W BAG 2 GM/50 ML BAG IVPB SCH (16:02)
[2024-08-16] MEDS: hydrALAZINE HCL 20 MG/ML VIAL IVPUSH ONE (18:41)
[2024-08-16] MEDS: ATORVASTATIN CA 10 MG TABLET (FP) PO SCH (21:09)
[2024-08-16] MEDS: MELATONIN 5 MG TABLETS PO PRN (21:11)
[2024-08-16] MEDS: ACETAMINOPHEN 325 MG TABLET (FP) PO PRN (21:34)
[2024-08-17 06:35] LABS: VENOUS BASE EXCESS 3.3 mmol/L (-2-2); VENOUS O2 SATURATION 72.3 % (70-80); VENOUS PCO2 47.4 mmHg (38-52); VENOUS PH 7.401 (7.310-7.410)
[2024-08-17 06:49] LABS: ABSOLUTE IMMATURE GRANULOCYTES 0.02 x10^3/uL (0.0-0.031); BASOPHILS # 0.04 x10^3/uL (0.01-0.08); EOSINOPHIL % 4.3 % (0.7-5.8); HEMATOCRIT 32.5 % (34.1-44.9); HEMOGLOBIN 10.6 g/dL (11.2-15.7); MCHC 32.6 g/dl (32.2-35.5); MEAN CELL VOLUME 97.3 fl (79.4-94.8); MEAN PLT VOLUME 11.5 fl (9.4-12.3); MONOCYTE # 0.59 x10^3/uL (0.24-0.86); MONOCYTE % 12.7 % (4.7-12.5); PLATELET COUNT 150 x10^3/uL (182-369); RDW 12.2 % (12.4-16.6)
[2024-08-17 06:56] LABS: POTASSIUM 3.8 mmol/L (3.5-5.1)
[2024-08-17 07:06] LABS: CALCIUM 9.9 mg/dL (8.5-10.1)
[2024-08-17 07:07] LABS: ALBUMIN 3.3 g/dl (3.4-5.0); BLOOD UREA NITROGEN 13.7 mg/dL (7-18)
[2024-08-17 07:10] LABS: CREATININE 0.4 mg/dL (0.55-1.3)
[2024-08-17 07:11] LABS: BILIRUBIN,TOTAL 0.6 mg/dL (0.2-1); TOT PROT 6.2 g/dl (6.4-8.2)
[2024-08-17] MEDS: CRANBERRY 400 MG PO SCH (17:17)
[2024-08-18 02:12] VITALS: TEMP 97.2
[2024-08-18] MEDS ORDERED: CALCIUM GLUCONATE 10% - 1,000 MG/10 ML VIAL IVPB ONE (08:19)
[2024-08-18] MEDS ORDERED: AMIODARONE IN DEXTROSE,ISO-OSM 360 MG/200 ML BAG IV SCH (08:30)
[2024-08-18] MEDS: FAMOTIDINE 20 MG TABLET PO SCH (09:14)
[2024-08-18 10:24] VITALS: BP 120/80; PULSE 71; RESP 22
== END 2024-08-18 10:42 | DRG 690 ==
LOC: JER 03:15 → JERBED 06:09 → J2W 10:15
PROVIDERS: ADMIT Family Medicine; ATTEND Family Medicine
DX: N39.0 Urinary tract infection, site not specified (principal); R78.81 Bacteremia; I50.32 Chronic diastolic (congestive) heart failure; I10 Essential (primary) hypertension; E78.5 Hyperlipidemia, unspecified; J44.9 Chronic obstructive pulmonary disease, unspecified; E03.9 Hypothyroidism, unspecified; I11.0 Hypertensive heart disease with heart failure; F32.A Depression, unspecified; I89.0 Lymphedema, not elsewhere classified; D64.9 Anemia, unspecified; Z86.718 Personal history of other venous thrombosis and embolism; Z79.01 Long term (current) use of anticoagulants; F41.9 Anxiety disorder, unspecified
CPT/HCPCS: 0241U-QW; 36415; 71045-TC-FY; 80053; 81003; 82803; 83605; 83735; 83880; 84439; 84443; 84484; 85025; 85610; 85730; 87040; 87086; 93005; 93010; 94640; 99285-25

== ENCOUNTER 2024-08-20 13:59 | Inpatient (IN) | payer OTHER ==
[2024-08-20 15:33] LABS: VENOUS O2 SATURATION 97.4 % (70-80); VENOUS PCO2 40.7 mmHg (38-52); VENOUS PH 7.444 (7.310-7.410)
[2024-08-20 15:34] LABS: EOSINOPHIL % 1.6 % (0.7-5.8); EOSINOPHILS # 0.15 x10^3/uL (0.04-0.36); MONOCYTE # 0.61 x10^3/uL (0.24-0.86); RDW 12.2 % (12.4-16.6)
[2024-08-20 15:36] LABS: ABSOLUTE IMMATURE GRANULOCYTES 0.04 x10^3/uL (0.0-0.031); BASOPHILS # 0.02 x10^3/uL (0.01-0.08); HEMOGLOBIN 10.5 g/dL (11.2-15.7); MCHC 32.8 g/dl (32.2-35.5); MEAN CELL VOLUME 97.3 fl (79.4-94.8); MEAN PLT VOLUME 11.5 fl (9.4-12.3); MONOCYTE % 6.5 % (4.7-12.5); PLATELET COUNT 150 x10^3/uL (182-369)
[2024-08-20 15:43] LABS: INR 1.26 (0.83-1.09); PROTHROMBIN TIME (PATIENT) 13.9 SEC (9.7-13.0)
[2024-08-20 15:45] LABS: ACTIVATED PTT 40.1 SECONDS (25.2-36.5)
[2024-08-20 15:52] LABS: POTASSIUM 3.8 mmol/L (3.5-5.1)
[2024-08-20 15:55] LABS: ALBUMIN 3.3 g/dl (3.4-5.0); BLOOD UREA NITROGEN 17.6 mg/dL (7-18); CALCIUM 9.7 mg/dL (8.5-10.1); MAGNESIUM 1.7 mg/dL (1.8-2.4)
[2024-08-20 15:58] LABS: CREATININE 0.5 mg/dL (0.55-1.3); PHOSPHOROUS 2.6 mg/dL (2.5-4.9)
[2024-08-20 16:00] LABS: BILIRUBIN,TOTAL 0.4 mg/dL (0.2-1); TOT PROT 6.1 g/dl (6.4-8.2)
[2024-08-20 16:01] LABS: N-TERMINAL BNP 478.9 pg/ml (5-450)
[2024-08-20 16:13] LABS: ERYTHROCYTE SEDIMENTATION RATE 12 mm/hr (0-30)
[2024-08-20] MEDS: ACETAMINOPHEN 325 MG TABLET (FP) PO PRN (20:26)
[2024-08-20] MEDS: ALBUTEROL SO4 2.5/IPRATROPIUM 0.5 INH SOL 3 ML VIAL.NEB. NEB SCH (20:45)
[2024-08-20] MEDS: APIXABAN 2.5 MG TABLET PO SCH (21:47)
[2024-08-20] MEDS: LOSARTAN POTASSIUM 50 MG TABLET PO SCH (21:47)
[2024-08-20] MEDS: ATORVASTATIN CA 10 MG TABLET (FP) PO SCH (21:47)
[2024-08-20] MEDS: MUPIROCIN 2% TOPICAL OINTMENT FOR DECOLONIZATION NS SCH (21:47)
[2024-08-20] MEDS: MELATONIN 5 MG TABLETS PO PRN (21:48)
[2024-08-20] MEDS: VITAMINS A AND D TOPICAL OINTMENT TP SCH (21:48)
[2024-08-20] MEDS: CHLORHEXIDINE GLUCONATE 4% CLEANSER FOR DECOLONIZATION TP SCH (21:49)
[2024-08-20] MEDS: levETIRAcetam 500 MG/5 ML ORAL SOLUTION (UNIT-DOSE CUPS) PO SCH (21:49)
[2024-08-20] MEDS: ZINC OXIDE 20% TOPICAL OINTMENT 30 GM TUBE TP SCH (21:49)
[2024-08-21] MEDS: LEVOTHYROXINE NA 100 MCG TABLET (FP) PO SCH (06:07)
[2024-08-21 07:01] LABS: CHLORIDE 105 mmol/L (98-107); SODIUM 142 mmol/L (136-145)
[2024-08-21 07:04] LABS: ALBUMIN 3.1 g/dl (3.4-5.0); ANION GAP 3 mmol/L (4-13); CO2 33 mmol/L (21-32); GLUCOSE,RANDOM 70 mg/dL (74-106); MAGNESIUM 1.7 mg/dL (1.8-2.4)
[2024-08-21 07:07] LABS: CREATININE 0.4 mg/dL (0.55-1.3); SGOT/AST 7 U/L (15-37); SGPT/ALT 11 U/L (13-61)
[2024-08-21 07:09] LABS: BILIRUBIN,TOTAL 0.5 mg/dL (0.2-1)
[2024-08-21 07:10] LABS: ALK PHOS 69 U/L (45-117); TOT PROT 5.7 g/dl (6.4-8.2)
[2024-08-21] MEDS: MAGNESIUM SULF 50% (8.12 MEQ/2 ML-1 GM VIAL) IVPB ONE (07:56)
[2024-08-21 08:14] LABS: ABSOLUTE IMMATURE GRANULOCYTES 0.01 x10^3/uL (0.0-0.031); BASOPHILS # 0.03 x10^3/uL (0.01-0.08); EOSINOPHILS # 0.15 x10^3/uL (0.04-0.36)
[2024-08-21 08:16] LABS: EOSINOPHIL % 4.2 % (0.7-5.8); HEMATOCRIT 30.1 % (34.1-44.9); HEMOGLOBIN 9.5 g/dL (11.2-15.7); MCHC 31.6 g/dl (32.2-35.5); MEAN PLT VOLUME 11.5 fl (9.4-12.3); MONOCYTE # 0.42 x10^3/uL (0.24-0.86); MONOCYTE % 11.7 % (4.7-12.5); PLATELET COUNT 143 x10^3/uL (182-369); RDW 12.5 % (12.4-16.6)
[2024-08-21] MEDS ORDERED: DEXTROSE 50%-WATER - 25 GM/50 ML VIAL IVPUSH PRN (08:57)
[2024-08-21] MEDS: MAGNESIUM 2GM/50ML STERILE WATER IVPB IVPB ONE (09:20)
[2024-08-21] MEDS: CEFTRIAXONE 2 GM-D5W BAG 2 GM/50 ML BAG IVPB SCH (09:21)
[2024-08-21] MEDS: CITALOPRAM HYDROBROMIDE 20 MG TABLET PO SCH (09:35)
[2024-08-21 09:39] LABS: IRON SERUM 45 ug/dL (50-175); TOTAL IRON BINDING CAPACITY 197 ug/dL (250-450)
[2024-08-21] MEDS ORDERED: CRANBERRY 400 MG PO SCH (10:00)
[2024-08-21] MEDS ORDERED: CEFTRIAXONE SODIUM 1 GM IV SCH (10:00)
[2024-08-21] MEDS: METHYL SALICYLATE/MENTHOL 30 GM TUBE TP SCH (15:12)
[2024-08-21] MEDS: LACTATED RINGERS SOLUTION 1,000 ML/1,000 ML INFUS.BAG IV SCH (18:47)
[2024-08-22 08:32] LABS: EPI CELLS >36 /uL (0-25.1); HYALINE CASTS 2 /uL (0-3.1); PH,URINE 5.5 (5.0-8.0); URINE APPEARANCE TURBID; URINE BACTERIA 453 /uL (0-1359); URINE BILIRUBIN NEGATIVE (NEGATIVE); URINE COLOR DK YELLOW; URINE GLUCOSE (UA) NEGATIVE (NEGATIVE); URINE KETONE 2+ (NEGATIVE); URINE LEUK ESTERASE NEGATIVE (NEGATIVE); URINE NITRITE NEGATIVE (NEGATIVE); URINE PROTEIN 1+ (NEGATIVE); URINE UROBILINOGEN 0.2 mg/dL (0.2-1.0); URINE WBC 48 /uL (0-25.8)
[2024-08-22 08:55] LABS: URINE CRYSTALS NONE SEEN /hpf; URINE RBC 122 /uL (0-23.9); YEAST PRESENT (NEGATIVE)
[2024-08-22 11:26] LABS: HEMOGLOBIN 9.3 g/dL (11.2-15.7); MEAN CELL VOLUME 98.3 fl (79.4-94.8); MEAN PLT VOLUME 11.1 fl (9.4-12.3); RDW 12.2 % (12.4-16.6)
[2024-08-22 11:28] LABS: ABSOLUTE IMMATURE GRANULOCYTES 0.02 x10^3/uL (0.0-0.031); BASOPHILS # 0.03 x10^3/uL (0.01-0.08); EOSINOPHIL % 2.9 % (0.7-5.8); EOSINOPHILS # 0.11 x10^3/uL (0.04-0.36); HEMATOCRIT 28.7 % (34.1-44.9); HEMATOCRIT 29.4 % (34.1-44.9); HEMOGLOBIN 9.3 g/dL (11.2-15.7); MCHC 31.6 g/dl (32.2-35.5); MCHC 32.4 g/dl (32.2-35.5); MEAN CELL VOLUME 98.3 fl (79.4-94.8); MONOCYTE # 0.32 x10^3/uL (0.24-0.86); MONOCYTE % 8.5 % (4.7-12.5); PLATELET COUNT 140 x10^3/uL (182-369); PLATELET COUNT 142 x10^3/uL (182-369)
[2024-08-22 11:48] LABS: POTASSIUM 3.9 mmol/L (3.5-5.1)
[2024-08-22 11:50] LABS: CALCIUM 9.6 mg/dL (8.5-10.1); MAGNESIUM 1.9 mg/dL (1.8-2.4)
[2024-08-22 11:51] LABS: BLOOD UREA NITROGEN 13.8 mg/dL (7-18)
[2024-08-22 11:53] LABS: PHOSPHOROUS 2.5 mg/dL (2.5-4.9)
[2024-08-22 11:54] LABS: CREATININE 0.3 mg/dL (0.55-1.3)
[2024-08-22 11:55] LABS: BILIRUBIN,TOTAL 0.3 mg/dL (0.2-1); TOT PROT 5.6 g/dl (6.4-8.2)
[2024-08-22] MEDS: OLANZapine 2.5 MG TABLET PO SCH (21:16)
[2024-08-22 23:41] VITALS: BMI 32.8
[2024-08-23 07:34] LABS: ABSOLUTE IMMATURE GRANULOCYTES 0.01 x10^3/uL (0.0-0.031); BASOPHILS # 0.02 x10^3/uL (0.01-0.08); EOSINOPHIL % 4.1 % (0.7-5.8); EOSINOPHILS # 0.13 x10^3/uL (0.04-0.36); HEMATOCRIT 29.3 % (34.1-44.9); HEMOGLOBIN 9.4 g/dL (11.2-15.7); MCHC 32.1 g/dl (32.2-35.5); MEAN CELL VOLUME 98.3 fl (79.4-94.8); MEAN PLT VOLUME 11.8 fl (9.4-12.3); MONOCYTE # 0.38 x10^3/uL (0.24-0.86); MONOCYTE % 12.1 % (4.7-12.5); PLATELET COUNT 132 x10^3/uL (182-369); RDW 12.3 % (12.4-16.6)
[2024-08-23 07:58] LABS: POTASSIUM 3.8 mmol/L (3.5-5.1)
[2024-08-23 08:00] LABS: BLOOD UREA NITROGEN 12.9 mg/dL (7-18); CALCIUM 9.9 mg/dL (8.5-10.1); MAGNESIUM 1.7 mg/dL (1.8-2.4)
[2024-08-23 08:03] LABS: CREATININE 0.4 mg/dL (0.55-1.3)
[2024-08-23] MEDS: AMINO ACIDS/PROTEIN HYDROLYS 30 ML LIQUID.PKT PO SCH (08:03)
[2024-08-23 08:04] LABS: PHOSPHOROUS 2.4 mg/dL (2.5-4.9)
[2024-08-23 08:05] LABS: BILIRUBIN,TOTAL 0.4 mg/dL (0.2-1); TOT PROT 5.5 g/dl (6.4-8.2)
[2024-08-23] MEDS: MAGNESIUM 1GM/D5W - 1 GM/100 ML IVPB IVPB ONE (09:20)
[2024-08-23] MEDS: ZINC SULFATE 220 MG CAPSULE (FP) PO SCH (09:25)
[2024-08-23] MEDS: ASCORBIC ACID 500 MG TABLET (FP) PO SCH (09:25)
[2024-08-23] MEDS: MULTIVITAMINS (DAILY MVI) TABLET (FP) PO SCH (09:25)
[2024-08-23] MEDS: LACTOBACILLUS ACIDOPHILUS 1 TABLET PO SCH (17:47)
[2024-08-24] MEDS ORDERED: LACTATED RINGERS SOLUTION 1000 ML INFUS.BAG IV ONE (06:30)
[2024-08-24] MEDS: ALBUMIN HUMAN 5% 500 ML IV SOLUTION IV ONE (06:59)
[2024-08-24 07:13] LABS: ABSOLUTE IMMATURE GRANULOCYTES 0.01 x10^3/uL (0.0-0.031); HEMOGLOBIN 8.9 g/dL (11.2-15.7); MONOCYTE # 0.42 x10^3/uL (0.24-0.86)
[2024-08-24 07:14] LABS: POTASSIUM 3.8 mmol/L (3.5-5.1)
[2024-08-24 07:15] LABS: BASOPHILS # 0.03 x10^3/uL (0.01-0.08); EOSINOPHIL % 2.3 % (0.7-5.8); EOSINOPHILS # 0.09 x10^3/uL (0.04-0.36); HEMATOCRIT 28.7 % (34.1-44.9); MEAN PLT VOLUME 11.8 fl (9.4-12.3); MONOCYTE % 10.8 % (4.7-12.5); PLATELET COUNT 137 x10^3/uL (182-369); RDW 12.5 % (12.4-16.6)
[2024-08-24 07:25] LABS: ALBUMIN 2.8 g/dl (3.4-5.0)
[2024-08-24 07:26] LABS: BLOOD UREA NITROGEN 15.8 mg/dL (7-18)
[2024-08-24 07:28] LABS: CREATININE 0.5 mg/dL (0.55-1.3)
[2024-08-24 07:29] LABS: BILIRUBIN,TOTAL 0.4 mg/dL (0.2-1); PHOSPHOROUS 3.7 mg/dL (2.5-4.9)
[2024-08-24 07:30] LABS: TOT PROT 5.5 g/dl (6.4-8.2)
[2024-08-24] MEDS ORDERED: LOSARTAN POTASSIUM 50 MG TABLET PO SCH (09:16)
[2024-08-24] MEDS: LOSARTAN POTASSIUM 25 MG TABLET PO SCH (14:26)
[2024-08-24] MEDS: MAGNESIUM CL 64 MG TABLET.SA PO SCH (17:43)
[2024-08-25] MEDS: OLANZapine 2.5 MG TABLET PO SCH (09:09)
[2024-08-26 08:54] VITALS: TEMP 97.9
[2024-08-26 12:21] VITALS: RESP 16
[2024-08-26 12:23] VITALS: BP 141/74; PULSE 65
== END 2024-08-26 11:15 | DRG 690 ==
LOC: JER 13:59 → JERBED 16:04 → JICU 17:51
PROVIDERS: ADMIT Internal Medicine; ATTEND Internal Medicine
DX: N39.0 Urinary tract infection, site not specified (principal); D61.818 Other pancytopenia; I50.32 Chronic diastolic (congestive) heart failure; I11.0 Hypertensive heart disease with heart failure; E78.5 Hyperlipidemia, unspecified; J44.9 Chronic obstructive pulmonary disease, unspecified; K59.00 Constipation, unspecified; F41.8 Other specified anxiety disorders; M54.50 Low back pain, unspecified; D64.9 Anemia, unspecified; G89.29 Other chronic pain; E83.42 Hypomagnesemia; G40.909 Epilepsy, unspecified, not intractable, without status epilepticus; Z86.718 Personal history of other venous thrombosis and embolism
CPT/HCPCS: 0241U-QW; 36415; 70450-TC; 71045-TC-FY; 76700-TC; 80053; 80177; 81003; 82010; 82140; 82533; 82550; 82607; 82728; 82746; 82803; 82962; 83036; 83540; 83550; 83605; 83735; 83880; 84100; 84146; 84439; 84443; 84466; 84484; 85025; 85027; 85610; 85651; 85730; 86140; 86850; 86900; 86901; 87040; 87086; 93005; 93010; 94010; 94640; 95816; 99285-25